=== PATIENT | female | born 1960 | race Caucasian/White ===

== ENCOUNTER 2021-11-10 19:31 | Emergency (ER) | payer MEDICARE, OTHER ==
[2021-11-10 19:43] VITALS: RESP 18; TEMP 97.8
--- NOTE | 2021-11-10 20:14 | XR ---
EXAMINATION TYPE: XR shoulder complete LT DATE OF EXAM: 11/10/2021 COMPARISON: NONE HISTORY: Fall. Pain TECHNIQUE: 3 views FINDINGS: There is no evidence of fracture nor dislocation. Glenohumeral joint is intact. There is sl ight narrowing of the shoulder joint space. IMPRESSION: Mild degenerative changes. No fracture.
--- NOTE | 2021-11-10 20:19 | XR ---
EXAMINATION TYPE: XR wrist complete LT DATE OF EXAM: 11/10/2021 COMPARISON: NONE HISTORY: Fall down the stairs. Pain TECHNIQUE: 3 views FINDINGS: There is impacted intra-articular fracture of the radial styloid process. There is only a f ew millimeters of impaction. There is nondisplaced fracture ulnar styloid process. There is no disloc ation. There is narrowing of the scaphoid trapezium joint space. There is spurring and narrowing at t he first carpometacarpal joint space. No dislocation. IMPRESSION: Acute fractures of the radial styloid process and the ultrasound process.
--- NOTE | 2021-11-10 20:21 | XR ---
EXAMINATION TYPE: XR forearm LT DATE OF EXAM: 11/10/2021 COMPARISON: NONE HISTORY: Fall. Pain TECHNIQUE: 2 views FINDINGS: There are fractures of the radial styloid process and ulnar styloid process described in th e wrist x-ray report. The proximal radius and ulna appear intact. There is transcondylar fracture of the distal humerus. IMPRESSION: Acute fractures of the distal humerus and the distal radius and ulna as above. No signifi cant displacement.
--- NOTE | 2021-11-10 20:22 | XR ---
EXAMINATION TYPE: XR elbow limited LT DATE OF EXAM: 11/10/2021 COMPARISON: NONE HISTORY: Pain TECHNIQUE: 2 views FINDINGS: There is nondisplaced transcondylar fracture of the distal humerus. There is no dislocation . Fracture involves mainly the medial humeral condyle. Radial head is intact. Proximal ulna is intact . IMPRESSION: Acute nondisplaced transcondylar fracture of the distal humerus involving mainly the medi al humeral condyle.
[2021-11-10] MEDS ORDERED: ONDANSETRON 4 MG/2 ML VIAL IVP STA (20:34)
[2021-11-10] MEDS ORDERED: MORPHINE SULFATE 4 MG/ML SYRINGE IV STA ×2 (20:34→21:47)
[2021-11-10] MEDS ORDERED: SODIUM CHLORIDE 0.9% 1,000 ML IV STA (20:34)
--- NOTE | 2021-11-10 20:43 | ED ---
Fall HPI - General Chief Complaint: Fall Stated Complaint: Fall-L arm injury Time Seen by Provider: 11/10/21 20:24 Source: patient Mode of arrival: wheelchair - History of Present Illness Initial Comments: This is a pleasant 61-year-old female with history of diabetes mellitus, DVT, PE, and heart disease. Patient presents to the emergency department today after tripping down stairs and reaching out with her left arm that Resolved. Patient complaining of pain to the area of the left humerus, left elbow, and left wrist. Patient states that the pain is severe, 10 out of 10 in intensity, sharp in nature, radiates through the entire left arm. Patient denying any other pain. Does not believe she struck her head but is unsure. Patient did not lose consciousness. She had no preceding symptomology. Nuys chest pain. Denies abdominal pain. Denies spinal pain. No leg pain. No headache, no fever or chills, no changes in vision or hearing, no sore throat or difficulty with speech, no neck pain, no chest pain or shortness of breath, no abdominal pain, no nausea or vomiting, no changes in urination or bowel movements, no numbness or tingling, , no skin rashes or lesions. Note that the patient had eye surgery yesterday. A vitrectomy. Patient states this went well. He denies any eye disturbance. patient is on eliquis for dvt pe. Complaint: fall Fall From: standing, down stairs (#) (7) When Fall Occurred: 1 hour [employer] Fall Witnessed: no Place Fall Occurred: home Loss of Consciousness: none Prolonged Down Time?: no Symptoms Prior to Fall: none Location - Extremities: Left: Arm, Elbow, Forearm Severity scale (1-10): 10 Quality: sharp Context: tripped/slipped Associated Symptoms: denies - Related Data Allergies Allergy/AdvReac Type Severity Reaction Status Date / Time butorphanol [From Stadol] Allergy Unknown Verified 11/10/21 19:43 codeine Allergy Rash/Hives Verified 11/10/21 19:44 meperidine [From Demerol] Allergy Anaphylaxis Verified 11/10/21 19:44 NSAIDS (Non-Steroidal Allergy Anaphylaxis Verified 11/10/21 19:44 Anti-Inflamma Review of Systems ROS Statement: Those systems with pertinent positive or pertinent negative responses have been documented in the HPI. ROS Other: All systems not noted in ROS Statement are negative. Past Medical History Past Medical History: Diabetes Mellitus, Deep Vein Thrombosis (DVT), Myocardial Infarction (NM), Pulmonary Embolus (PE) History of Any Multi-Drug Resistant Organisms: None Reported Past Surgical History: Heart Catheterization With Stent Additional Past Surgical History / Comment(s): Stent x10, fliter in leg. Past Psychological History: No Psychological Hx Reported Smoking Status: Never smoker Past Alcohol Use History: None Reported Past Drug Use History: None Reported General Exam - General Exam Comments Initial Comments: 61-year-old female in significant distress secondary to left arm pain/traumatic. Cranial nerves II through XII are intact. Head appears normocephalic/atraumatic. General appearance: alert, in distress Head exam: Present: atraumatic, normocephalic, normal inspection Eye exam: Present: normal appearance, PERRL, EOMI. Absent: scleral icterus, conjunctival injection, periorbital swelling ENT exam: Present: normal exam, normal oropharynx, mucous membranes moist, TM's normal bilaterally, normal external ear exam. Absent: mucous membranes dry Neck exam: Present: normal inspection, full ROM. Absent: tenderness, meningismus, lymphadenopathy Respiratory exam: Present: normal lung sounds bilaterally, chest wall tenderness. Absent: respiratory distress, wheezes, rales, rhonchi, stridor, accessory muscle use Cardiovascular Exam: Present: regular rate, normal rhythm, normal heart sounds. Absent: systolic murmur, diastolic murmur, rubs, gallop, clicks GI/Abdominal exam: Present: soft, normal bowel sounds. Absent: distended, tenderness, guarding, rebound, rigid Extremities exam: Present: tenderness, normal capillary refill. Absent: normal inspection, full ROM, pedal edema, calf tenderness Left Shoulder Exam: Present: normal inspection, full ROM. Absent: tenderness, swelling, abrasion Upper Arm exam: Present: tenderness, swelling, ecchymosis. Absent: abrasion, laceration, deformity, crepidus, dislocation, erythema Elbow exam: Present: normal inspection, tenderness. Absent: full ROM, swelling, abrasion, laceration, ecchymosis, deformity, crepitus, dislocation Forearm Wrist exam: Present: tenderness, swelling. Absent: normal inspection, full ROM, abrasion, laceration, ecchymosis, deformity, crepitus, dislocation, erythema, tenderness over anatomical snuff box, pain with axial thumb loading Hand Wrist exam: Present: tenderness, swelling. Absent: normal inspection, full ROM, abrasion, laceration, ecchymosis, deformity, crepitus, dislocation Neuro motor exam: Present: wrist extension intact, thumb opposition intact, thumb IP flexion intact, thumb adduction intact, fingers 2-5 abduction intact Neurosensory exam: Present: radial nerve intact, ulnar nerve intact, median nerve intact Vascular: Present: normal capillary refill. Absent: vascular compromise, Pallo, pulse deficit radial art, pulse deficit ulnar art Back exam: Present: normal inspection. Absent: tenderness, paraspinal tenderness, vertebral tenderness Neurological exam: Present: alert, oriented X3, CN II-XII intact, normal gait, other (Cerebellar testing is normal). Absent: altered, abnormal gait, motor sensory deficit Psychiatric exam: Present: normal affect, normal mood Skin exam: Present: warm, dry, intact, normal color. Absent: rash Course Vital Signs 11/10/21 11/10/21 11/10/21 19:38 21:00 22:00 Temperature 97.8 F Pulse Rate 95 Respiratory 18 Rate Blood Pressure 117/66 137/84 132/84 O2 Sat by Pulse 98 Oximetry - Reevaluation(s) Reevaluation #1: 11/10/21 22:12 Medical record is reviewed Symptoms minimally improved. Neurovascular status intact. - Consultations Consultation #1: I spoke to the transfer center at [facility] at 10 PM. They're unable to get a hold of the trauma surgeon. They are attempting to get home and then call me back. Currently 10:05 PM. Consultation #2: Case highly discussed with Dr. Cason at 11:05 PM. This did create a delay in transfer to [facility]. Apparently could not get a hold of Dr. Rushing. Procedures - Orthopedic Splinting/Casting Injury #1 Side: left Upper Extremity Injury Location: long arm Upper Extremity Immobilizer: ulnar gutter Lower Extremity Immobilizer: Hu wrap, fiberglass cast Additional Comments: Sling applied, neurovascular status intact both pre-and post-application Medical Decision Making - Medical Decision Making Patient apparently fell down about 7 steps. Unsure whether she struck her head. Patient believes not however is possible. Patient is on anticoagulation. I'm going to obtain a CT of the brain and cervical spine given the patient's me chanism of injury and severely distracting injury involving the left humerus area and left forearm area. Accepting physician Dr. Rushing. The case was discussed in detail with ED attending physician. Presentation, findings, treatment plan discussed in detail. Supervising physicians Dr. Gandhi - Lab Data Result diagrams: 11/10/21 21:10 11/10/21 21:10 Lab Results 11/10/21 11/10/21 11/10/21 Range/Units 21:05 21:10 21:10 WBC 9.7 (3.8-10.6) k/uL RBC 4.17 (3.80-5.40) m/uL Hgb 12.4 (11.4-16.0) gm/dL Hct 39.3 (34.0-46.0) % MCV 94.2 (80.0-100.0) fL MCH 29.8 (25.0-35.0) pg MCHC 31.6 (31.0-37.0) g/dL RDW 13.5 (11.5-15.5) % Plt Count 296 (150-450) k/uL MPV 6.8 Neutrophils % 59 % Lymphocytes % 31 % Monocytes % 6 % Eosinophils % 1 % Basophils % 1 % Neutrophils # 5.8 (1.3-7.7) k/uL Lymphocytes # 3.0 (1.0-4.8) k/uL Monocytes # 0.6 (0-1.0) k/uL Eosinophils # 0.1 (0-0.7) k/uL Basophils # 0.1 (0-0.2) k/uL PT 9.8 (9.0-12.0) sec INR 0.9 (<1.2) APTT 20.6 L (22.0-30.0) sec Sodium (137-145) mmol/L Potassium (3.5-5.1) mmol/L Chloride (98-107) mmol/L Carbon Dioxide (22-30) mmol/L Anion Gap mmol/L BUN (7-17) mg/dL Creatinine (0.52-1.04) mg/dL Est GFR (CKD-EPI)AfAm (>60 ml/min/1.73 sqM) Est GFR (CKD-EPI)NonAf (>60 ml/min/1.73 sqM) Glucose (74-99) mg/dL Calcium (8.4-10.2) mg/dL Blood Type Blood Type Confirm A Positive Blood Type Recheck Bld Type Recheck Status Antibody Screen Spec Expiration Date 11/10/21 11/10/21 Range/Units 21:10 21:10 WBC (3.8-10.6) k/uL RBC (3.80-5.40) m/uL Hgb (11.4-16.0) gm/dL Hct (34.0-46.0) % MCV (80.0-100.0) fL MCH (25.0-35.0) pg MCHC (31.0-37.0) g/dL RDW (11.5-15.5) % Plt Count (150-450) k/uL MPV Neutrophils % % Lymphocytes % % Monocytes % % Eosinophils % % Basophils % % Neutrophils # (1.3-7.7) k/uL Lymphocytes # (1.0-4.8) k/uL Monocytes # (0-1.0) k/uL Eosinophils # (0-0.7) k/uL Basophils # (0-0.2) k/uL PT (9.0-12.0) sec INR (<1.2) APTT (22.0-30.0) sec Sodium 137 (137-145) mmol/L Potassium 3.5 (3.5-5.1) mmol/L Chloride 101 (98-107) mmol/L Carbon Dioxide 21 L (22-30) mmol/L Anion Gap 15 mmol/L BUN 14 (7-17) mg/dL Creatinine 0.50 L (0.52-1.04) mg/dL Est GFR (CKD-EPI)AfAm >90 (>60 ml/min/1.73 sqM) Est GFR (CKD-EPI)NonAf >90 (>60 ml/min/1.73 sqM) Glucose 265 H (74-99) mg/dL Calcium 9.0 (8.4-10.2) mg/dL Blood Type A Positive Blood Type Confirm Blood Type Recheck No Previous Record Bld Type Recheck Status CABO Indicated Antibody Screen NEGATIVE Spec Expiration Date 11/13/2021 - 2309 Disposition Clinical Impression: Fall, Fracture of radius, distal, with ulna, left, closed, Fracture, supracondylar, humerus, left, closed Narrative: Intra-articular fracture of the left radius and supracondylar fracture of the left humerus displaced. Disposition: OTHER INSTITUTION NOT DEFINED Condition: Fair Referrals: Wayne Ramos MD [Primary Care Provider] - 1-2 days Time of Disposition: 22:10 - Out of Hospital Transfer - Req. Specs Out of Hospital Transfer - Requested Specifics: Other Emergency Center
[2021-11-10 21:20] LABS: Basophils # (A) 0.1 k/uL (0-0.2); Basophils % (A) 1 %; Eosinophils # (A) 0.1 k/uL (0-0.7); Eosinophils % (A) 1 %; HCT 39.3 % (34.0-46.0); HGB 12.4 gm/dL (11.4-16.0); Lymphocytes % (A) 31 %; MCH 29.8 pg (25.0-35.0); MCHC 31.6 g/dL (31.0-37.0); MCV 94.2 fL (80.0-100.0); Mean Platelet Volume 6.8; Monocytes # (A) 0.6 k/uL (0-1.0); Monocytes % (A) 6 %; Neutrophils # (A) 5.8 k/uL (1.3-7.7); Neutrophils % (A) 59 %; Platelet Count 296 k/uL (150-450); RBC 4.17 m/uL (3.80-5.40); RDW 13.5 % (11.5-15.5); WBC 9.7 k/uL (3.8-10.6)
[2021-11-10 21:31] LABS: African American GFR (CKD) >90 (>60 ml/min/1.73 sqM); Anion Gap 15 mmol/L; Blood Urea Nitrogen 14 mg/dL (7-17); Carbon Dioxide 21 mmol/L (22-30); Chloride 101 mmol/L (98-107); Glucose 265 mg/dL (74-99); Non-African American GFR(CKD) >90 (>60 ml/min/1.73 sqM); Potassium 3.5 mmol/L (3.5-5.1); Sodium 137 mmol/L (137-145)
--- NOTE | 2021-11-10 21:44 | CT ---
EXAMINATION TYPE: CT brain jonas brown DATE OF EXAM: 11/10/2021 COMPARISON: None HISTORY: Fall, head injury CT DLP: 1380 mGycm Automated exposure control for dose reduction was used. Images of the brain and cervical spine obtained without contrast. There is bilateral rounded hypodensities in the internal capsule consistent with multiple lacunar inf arcts. There is also involvement of the posterior right caudate nucleus. There is cerebral cortical a trophy. No midline shift. No sign of intracranial hemorrhage. Calvarium is intact. There is normal ae ration of the mastoid sinuses. There is air-fluid level in the right lobe. The cervical vertebra have normal alignment. Posterior elements are intact there is degenerative disc space narrowing from C3 to C7 with spurring of the endplates IMPRESSION: Multilevel cervical spondylotic changes. No fracture. Minimal bilateral lacunar infarcts. Cerebral atrophy. No acute intracranial abnormality. No hemorrhag e. Mild right-sided maxillary sinusitis noted.
[2021-11-10 21:54] LABS: INR 0.9 (<1.2); Prothrombin Time 9.8 sec (9.0-12.0)
[2021-11-10 21:58] LABS: Partial Thromboplastin Time 20.6 sec (22.0-30.0)
[2021-11-10] MEDS ORDERED: MORPHINE SULFATE 4 MG/ML SYRINGE IVP STA (22:44)
[2021-11-10] MEDS ORDERED: HYDROmorphone 1 MG/ML 1 ML SYRINGE IVP STA (23:15)
[2021-11-10 23:47] VITALS: BP 143/84; PULSE 87
== END 2021-11-10 23:47 | disposition other institution (70) ==
LOC: EC 19:31
DX: S42.412A Displaced simple supracondylar fracture without intercondylar fracture of left humerus, initial encounter for closed fracture (principal); S52.502A Unspecified fracture of the lower end of left radius, initial encounter for closed fracture; E11.9 Type 2 diabetes mellitus without complications; I25.2 Old myocardial infarction; Z88.5 Allergy status to narcotic agent; Z88.6 Allergy status to analgesic agent; W19.XXXA Unspecified fall, initial encounter
CPT/HCPCS: 36415; 86900; 86901; 80048; 85025; 85610; 85730; 86850; 87635; 73030; 73070; 73090; 73110; 72125; 70450; 29105; 99285; 96374; 96375; 96376; 96361; J2270; J1170

== ENCOUNTER 2021-12-07 17:34 | Observation (INO) | payer MEDICARE, OTHER ==
--- NOTE | 2021-12-07 18:36 | ED ---
General Adult HPI - General Chief complaint: Headache Stated complaint: Confusion Time Seen by Provider: 12/07/21 17:55 Source: patient, EMS, RN notes reviewed, old records reviewed Mode of arrival: EMS Limitations: no limitations - History of Present Illness Initial comments: 61-year-old female presenting for evaluation of headache and word finding dif ficulty. Her symptoms of word finding difficulty and speech abnormality began about 2 hours prior to arrival at approximately 2:30 PM. They were transient and have resolved prior to arrival. She also complains of a left-sided headache which is been intermittent over the past one month. This was severe at times described as a worst headache of her life. She is currently on Plavix and Eliquis. She denies any focal numbness or weakness. No facial droop noted. No fever. No vomiting. - Related Data Allergies Allergy/AdvReac Type Severity Reaction Status Date / Time butorphanol [From Stadol] Allergy Unknown Verified 11/10/21 19:43 codeine Allergy Rash/Hives Verified 11/10/21 19:44 meperidine [From Demerol] Allergy Anaphylaxis Verified 11/10/21 19:44 NSAIDS (Non-Steroidal Allergy Anaphylaxis Verified 11/10/21 19:44 Anti-Inflamma Review of Systems ROS Statement: Those systems with pertinent positive or pertinent negative responses have been documented in the HPI. ROS Other: All systems not noted in ROS Statement are negative. Past Medical History Past Medical History: Diabetes Mellitus, Deep Vein Thrombosis (DVT), Myocardial Infarction ([place]), Pulmonary Embolus (PE) History of Any Multi-Drug Resistant Organisms: None Reported Past Surgical History: Heart Catheterization With Stent, Orthopedic Surgery Additional Past Surgical History / Comment(s): Stent x10, fliter in leg. Past Psychological History: No Psychological Hx Reported Smoking Status: Never smoker Past Alcohol Use History: None Reported Past Drug Use History: None Reported General Exam Limitations: no limitations General appearance: alert, in no apparent distress Head exam: Present: atraumatic, normocephalic Eye exam: Present: normal appearance, PERRL ENT exam: Present: normal exam Neck exam: Present: normal inspection. Absent: tenderness, meningismus Respiratory exam: Present: normal lung sounds bilaterally. Absent: respiratory distress, wheezes Cardiovascular Exam: Present: regular rate, normal rhythm GI/Abdominal exam: Present: soft. Absent: distended, tenderness, guarding Extremities exam: Present: normal inspection, normal capillary refill. Absent: pedal edema Neurological exam: Present: alert, oriented X3, CN II-XII intact, other (NIH 0). Absent: motor sensory deficit Psychiatric exam: Present: normal affect, normal mood Skin exam: Present: warm, dry, intact. Absent: cyanosis, diaphoretic Course Vital Signs 12/07/21 12/07/21 17:35 19:40 Temperature 98.3 F Pulse Rate 78 79 Respiratory 18 18 Rate Blood Pressure 151/91 152/86 O2 Sat by Pulse 95 96 Oximetry EKG Findings - EKG Comments: EKG Findings:: EKG: Sinus rhythm rate of 80 CO interval 162, QRS duration 104, QTC 426, no ST segment elevation. Medical Decision Making - Medical Decision Making 61-year-old female presented for evaluation of her finding difficulty and expressive aphasia. Symptoms resolved prior to arrival. I did obtain history from the son who states that she was unable to speak. This was suggestive of TIA. Workup was initiated including CT and CT angiography. CT showing old lacunar infarcts with no acute findings. CT angiography was negative for anemia obstruction or stenosis. Laboratory testing was unremarkable. She remained NIH of 0 while in the emergency department. She will benefit from further stroke evaluation. She'll be admitted to Dr. Cunningham with neurology on consult. - Lab Data Result diagrams: 12/07/21 19:08 12/07/21 19:08 Lab Results 12/07/21 12/07/21 12/07/21 Range/Units 19:08 19:08 19:08 WBC 7.3 (3.8-10.6) k/uL RBC 4.38 (3.80-5.40) m/uL Hgb 12.7 (11.4-16.0) gm/dL Hct 40.2 (34.0-46.0) % MCV 91.9 (80.0-100.0) fL MCH 29.0 (25.0-35.0) pg MCHC 31.5 (31.0-37.0) g/dL RDW 13.4 (11.5-15.5) % Plt Count 246 (150-450) k/uL MPV 6.8 Neutrophils % 52 % Lymphocytes % 37 % Monocytes % 6 % Eosinophils % 1 % Basophils % 1 % Neutrophils # 3.8 (1.3-7.7) k/uL Lymphocytes # 2.7 (1.0-4.8) k/uL Monocytes # 0.5 (0-1.0) k/uL Eosinophils # 0.1 (0-0.7) k/uL Basophils # 0.1 (0-0.2) k/uL PT 10.2 (9.0-12.0) sec INR 0.9 (<1.2) APTT 23.3 (22.0-30.0) sec Sodium 138 (137-145) mmol/L Potassium 3.8 (3.5-5.1) mmol/L Chloride 103 (98-107) mmol/L Carbon Dioxide 26 (22-30) mmol/L Anion Gap 9 mmol/L BUN 28 H (7-17) mg/dL Creatinine 0.50 L (0.52-1.04) mg/dL Est GFR (CKD-EPI)AfAm >90 (>60 ml/min/1.73 sqM) Est GFR (CKD-EPI)NonAf >90 (>60 ml/min/1.73 sqM) Glucose 157 H (74-99) mg/dL Calcium 8.8 (8.4-10.2) mg/dL Total Bilirubin 0.5 (0.2-1.3) mg/dL AST 25 (14-36) U/L ALT 24 (4-34) U/L Alkaline Phosphatase 147 H (38-126) U/L Troponin I (0.000-0.034) ng/mL Total Protein 6.9 (6.3-8.2) g/dL Albumin 4.1 (3.5-5.0) g/dL 12/07/21 Range/Units 19:08 WBC (3.8-10.6) k/uL RBC (3.80-5.40) m/uL Hgb (11.4-16.0) gm/dL Hct (34.0-46.0) % MCV (80.0-100.0) fL MCH (25.0-35.0) pg MCHC (31.0-37.0) g/dL RDW (11.5-15.5) % Plt Count (150-450) k/uL MPV Neutrophils % % Lymphocytes % % Monocytes % % Eosinophils % % Basophils % % Neutrophils # (1.3-7.7) k/uL Lymphocytes # (1.0-4.8) k/uL Monocytes # (0-1.0) k/uL Eosinophils # (0-0.7) k/uL Basophils # (0-0.2) k/uL PT (9.0-12.0) sec INR (<1.2) APTT (22.0-30.0) sec Sodium (137-145) mmol/L Potassium (3.5-5.1) mmol/L Chloride (98-107) mmol/L Carbon Dioxide (22-30) mmol/L Anion Gap mmol/L BUN (7-17) mg/dL Creatinine (0.52-1.04) mg/dL Est GFR (CKD-EPI)AfAm (>60 ml/min/1.73 sqM) Est GFR (CKD-EPI)NonAf (>60 ml/min/1.73 sqM) Glucose (74-99) mg/dL Calcium (8.4-10.2) mg/dL Total Bilirubin (0.2-1.3) mg/dL AST (14-36) U/L ALT (4-34) U/L Alkaline Phosphatase (38-126) U/L Troponin I <0.012 (0.000-0.034) ng/mL Total Protein (6.3-8.2) g/dL Albumin (3.5-5.0) g/dL Disposition Clinical Impression: Headache, TIA (transient ischemic attack) Disposition: ADMITTED IP TO THIS [facility] Condition: Stable Is patient prescribed a controlled substance at d/c from ED?: No Referrals: Wayne Ramos MD [Primary Care Provider] - 1-2 days Time of Disposition: 20:57
[2021-12-07 19:13] LABS: Basophils # (A) 0.1 k/uL (0-0.2); Basophils % (A) 1 %; Eosinophils # (A) 0.1 k/uL (0-0.7); Eosinophils % (A) 1 %; HCT 40.2 % (34.0-46.0); HGB 12.7 gm/dL (11.4-16.0); Lymphocytes # (A) 2.7 k/uL (1.0-4.8); Lymphocytes % (A) 37 %; MCHC 31.5 g/dL (31.0-37.0); MCV 91.9 fL (80.0-100.0); Mean Platelet Volume 6.8; Monocytes # (A) 0.5 k/uL (0-1.0); Monocytes % (A) 6 %; Neutrophils # (A) 3.8 k/uL (1.3-7.7); Neutrophils % (A) 52 %; Platelet Count 246 k/uL (150-450); RBC 4.38 m/uL (3.80-5.40); RDW 13.4 % (11.5-15.5); WBC 7.3 k/uL (3.8-10.6)
[2021-12-07 19:21] LABS: INR 0.9 (<1.2); Partial Thromboplastin Time 23.3 sec (22.0-30.0); Prothrombin Time 10.2 sec (9.0-12.0)
[2021-12-07 19:29] LABS: ALT 24 U/L (4-34); AST 25 U/L (14-36); African American GFR (CKD) >90 (>60 ml/min/1.73 sqM); Albumin 4.1 g/dL (3.5-5.0); Alkaline Phosphatase 147 U/L (38-126); Anion Gap 9 mmol/L; Blood Urea Nitrogen 28 mg/dL (7-17); Calcium 8.8 mg/dL (8.4-10.2); Carbon Dioxide 26 mmol/L (22-30); Chloride 103 mmol/L (98-107); Glucose 157 mg/dL (74-99); Non-African American GFR(CKD) >90 (>60 ml/min/1.73 sqM); Potassium 3.8 mmol/L (3.5-5.1); Sodium 138 mmol/L (137-145); Total Bilirubin 0.5 mg/dL (0.2-1.3); Total Protein 6.9 g/dL (6.3-8.2)
--- NOTE | 2021-12-07 19:41 | XR ---
EXAMINATION TYPE: XR chest 2V DATE OF EXAM: 12/07/2021 COMPARISON: NONE HISTORY: Altered mental status TECHNIQUE: FINDINGS: There is no heart failure nor confluent pneumonic infiltrate. Costophrenic angles are clear . There are chest leads. Bony thorax is intact. IMPRESSION: No active cardiopulmonary disease. Normal heart.
--- NOTE | 2021-12-07 20:24 | CT ---
EXAMINATION TYPE: CT angio head neck DATE OF EXAM: 12/07/2021 COMPARISON: None HISTORY: Neuro deficit, acute, stroke suspected CT DLP: 631 mGycm Automated exposure control for dose reduction was used. CONTRAST: Performed with IV Contrast, patient injected with 65 mL of Isovue 370. Images obtained from the aortic arch to the vertex of the brain with IV contrast. There are Three-D p ostprocessed images. There is normal branching pattern of the great vessels on the aortic arch. There is arterial flow in both subclavian arteries. There is arterial flow in the common internal and external carotid arteries bilaterally. There is bilateral plaque formation at the carotid artery bifurcations. There is estima jelly 20% stenosis at the origin left internal carotid artery. There is estimated 25% stenosis origin o f the right internal carotid artery. No evidence of carotid or vertebral artery aneurysm or dissectio n. There is arterial flow in both vertebral arteries. There is arterial flow in the vertebrobasilar a rtery system. There is arterial flow in the anterior middle and posterior cerebral arteries. No evidence of intracr anial aneurysm or neovascularity. No mass effect. There is 1 cm hypodensity anterior left internal ca psule consistent with a old lacunar infarct. There is mild white matter hypodensity there is also bertram arent old lacunar infarct right anterior internal capsule. There is some hypodensity in the posterior right caudate nucleus consistent with old lacunar infarct. There is normal enhancement of the venous sinuses. No evidence of intracranial hemodynamic arterial s tenosis. IMPRESSION: No significant intracranial angiographic abnormality. Mild plaque at the carotid artery bifurcations with no evidence of hemodynamic stenosis.
--- NOTE | 2021-12-07 20:27 | CT ---
EXAMINATION TYPE: CT brain wo con DATE OF EXAM: 12/07/2021 COMPARISON: 11/10/2021 HISTORY: Neuro deficit, acute, stroke suspected CT DLP: 1139.6 mGycm Automated exposure control for dose reduction was used. Images of the brain obtained without contrast. There is some cerebral cortical atrophy. There is no mass effect or midline shift. No sign of intracr anial hemorrhage. There is 1 cm hypodensity anterior left internal capsule consistent with old lacuna r infarct. There is similar elongated 1 cm focus in the mid right internal capsule. There is 8 mm hyp odensity in the posterior right caudate nucleus. No evidence of cortical infarct. Calvarium is intact . There is some mucosal thickening right maxillary sinus. Skull base is intact. There is normal aerat ion of the mastoid sinuses. IMPRESSION: Old bilateral lacunar infarcts. Cerebral atrophy. No change compared to old exam. No acute intracrani al abnormality.
[2021-12-07] MEDS: SODIUM CHLORIDE 0.9% 1,000 ML IV SCH (21:54)
[2021-12-07] MEDS ORDERED: ACETAMINOPHEN TAB 500 MG TAB PO STA (22:04)
--- NOTE | 2021-12-08 01:33 | P.HPIM ---
History of Present Illness H&P Date: 12/07/21 Chief Complaint: Headache 61-year-old female with diabetes mellitus coronary artery disease status post 10 stents hypertension Patient coming in complaining of severe headache described it as severe 8 at 10 in severity feels it at the top of the headache goes to the left side not associated with any vision changes nausea vomiting or hearing changes not associated with any other focal neuro deficits however she reports that this headache has been going off and on for over 2 months now and today she started experiencing slurred speech and numbness over the right hand for which she decided to come in for evaluation Patient was seen 2 weeks ago at a different ER in the region she was only found to have high blood pressure Workup in the ED CAT scan of the head showed old lacunar infarct bilaterally CT angiogram of the head and neck showed no significant disease Blood work overall unremarkable chest x-rays negative Review of Systems Pertinent positives as noted in HPI. All other systems were reviewed and are negative Past Medical History Past Medical History: Diabetes Mellitus, Deep Vein Thrombosis (DVT), Myocardial Infarction (OR), Pulmonary Embolus (PE) History of Any Multi-Drug Resistant Organisms: None Reported Past Surgical History: Heart Catheterization With Stent, Orthopedic Surgery Additional Past Surgical History / Comment(s): Stent x10, fliter in leg. Past Psychological History: No Psychological Hx Reported Smoking Status: Never smoker Past Alcohol Use History: None Reported Past Drug Use History: None Reported - Past Family History Family Family Medical History: No Reported History Medications and Allergies Home Medications Medication Instructions Recorded Confirmed Type Apixaban [Eliquis] 5 mg PO BID 12/07/21 12/07/21 History Buprenorphine/Naloxone 8Mg/2Mg 0.5 - 1 film SL TID PRN 12/07/21 12/07/21 History [Suboxone 8-2Mg Film] Clopidogrel [Plavix] 75 mg PO DAILY 12/07/21 12/07/21 History DULoxetine HCL [Cymbalta] 60 mg PO BID 12/07/21 12/07/21 History Ezetimibe [Zetia] 10 mg PO HS 12/07/21 12/07/21 History Insulin Aspart [NovoLOG Flexpen] See Protocol SQ ACHS PRN 12/07/21 12/07/21 History Insulin Detemir [Levemir Flextouch 40 units SQ BID 12/07/21 12/07/21 History Pen] Levothyroxine Sodium [Synthroid] 112 mcg PO DAILY 12/07/21 12/07/21 History Linaclotide [Linzess] 290 mcg PO DAILY 12/07/21 12/07/21 History Lisinopril [Prinivil] 20 mg PO DAILY 12/07/21 12/07/21 History Potassium Chloride ER [K-Dur 20] 20 meq PO DAILY 12/07/21 12/07/21 History Rosuvastatin [Crestor] 20 mg PO HS 12/07/21 12/07/21 History Semaglutide [Ozempic] 1 mg SQ FR 12/07/21 12/07/21 History tiZANidine [Zanaflex] 4 mg PO Q8H PRN 12/07/21 12/07/21 History Allergies Allergy/AdvReac Type Severity Reaction Status Date / Time butorphanol [From Stadol] Allergy Unknown Verified 12/07/21 21:33 codeine Allergy Rash/Hives Verified 12/07/21 21:33 meperidine [From Demerol] Allergy Anaphylaxis Verified 12/07/21 21:33 NSAIDS (Non-Steroidal Allergy Anaphylaxis Verified 12/07/21 21:33 Anti-Inflamma carvedilol [From Coreg] AdvReac Migraines Verified 12/07/21 21:35 Physical Exam Vitals: Vital Signs Temp Pulse Resp BP Pulse Ox 12/07/21 21:57 81 15 110/68 96 12/07/21 19:40 79 18 152/86 96 12/07/21 17:35 98.3 F 78 18 151/91 95 Intake and Output 12/07/21 12/07/21 12/07/21 06:59 14:59 22:59 Other: Weight 84.232 kg Constitutional: No acute distress, conversant, pleasant Eyes: Anicteric sclerae, moist conjunctiva, Pupils equal round reactive to light ENMT: NC/AT Oropharynx clear, no erythema, or exudates Neck: Supple, FROM, no masses, or JVD No carotid bruits No thyromegaly Lungs: Clear to auscultation Clear to percussion Normal respiratory effort, no accessory muscle use Cardiovascular: Heart regular in rate and rhythm, No murmurs, gallops, or rubs No peripheral edema Abdominal: Soft Nontender, no guarding, rebound or rigidity Abdomen moving with respiration Normoactive bowel sounds No hepatomegaly, No splenomegaly No palpable mass No abdominal wall hernia noted Skin: Normal temperature, tone, texture, turgor No induration No subcutaneous nodules No rash, lesions No ulcers Extremities: No digital cyanosis No clubbing Pedal pulses intact and symmetrical Radial pulses intact and symmetrical No calf tenderness Psychiatric: Alert and oriented to person, place and time Appropriate affect fair judgement Neuro Muscles Strength 5/5 in all 4 extremities Sensation to light touch grossly present throughout Cranial nerves II-XII grossly intact No focal sensory deficits Lymphatics: no palpable cervical or supraclavicular , or inguinal lymph nodes Results CBC & Chem 7: 12/07/21 19:08 12/07/21 19:08 Labs: Abnormal Lab Results - Last 24 Hours (Table) 12/07/21 Range/Units 19:08 BUN 28 H (7-17) mg/dL Creatinine 0.50 L (0.52-1.04) mg/dL Glucose 157 H (74-99) mg/dL Alkaline Phosphatase 147 H (38-126) U/L Assessment and Plan Assessment: TIA Neurology consultation Neurochecks every 2 hours Fall precautions Check lipid profile, A1c Check echocardiogram CT angiogram the head and neck showed mild plaque disease in the carotids CT of the head and neck negative for acute pathology Resume Plavix and statin Hold a liquids History of A. fib on elliques Currently holding a liquids due to subacute TIA Diabetes mellitus switched to insulin sliding scale Hypertension Resume home medications Full code DVT prophylaxis on eliquis Anticipated length of stay less than 30 minutes
[2021-12-08 02:37] LABS: Glucose,Whole Blood 260 mg/dL (75-99)
[2021-12-08] MEDS: LEVOTHYROXINE 112 MCG TAB PO SCH (06:38)
[2021-12-08 07:46] LABS: Glucose,Whole Blood 158 mg/dL (75-99)
[2021-12-08] MEDS: INSULIN ASPART (NovoLOG) 100 UNIT/ML VIAL SQ SCH ×4 (08:01→21:18)
[2021-12-08] MEDS: SODIUM CHLORIDE 0.9% 1,000 ML IV SCH ×2 (08:09→17:56)
[2021-12-08] MEDS ORDERED: CLOPIDOGREL 75 MG TAB PO SCH (09:00)
[2021-12-08] MEDS: DULoxetine HCL 60 MG CAPSULE.DR PO SCH ×2 (09:22→21:17)
[2021-12-08] MEDS: CLOPIDOGREL 75 MG TAB PO SCH (09:22)
[2021-12-08] MEDS: lisinopriL 20 MG TAB PO SCH (09:23)
[2021-12-08] MEDS: NON FORMULARY DRUG (Linaclotide [Linzess] 290 MCG Capsule) PO SCH (10:24)
[2021-12-08] MEDS: APIXABAN 5 MG TAB PO SCH ×2 (10:30→21:16)
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
[2021-12-08 11:35] LABS: C Reactive Protein <0.5 mg/dL (<1.0)
--- NOTE | 2021-12-08 11:56 | CA ---
Transthoracic Echo Report Name: Bethany Linares Age: 61 Gender: F : 1960 Exam Date: 12/08/2021 07:35 Exam Location: [facility] Ht (in): 66 Wt (lb): 185 Ordering Physician: Chris Munson MD Attending/Referring Phys: [id number], [employer] Donya Pinzon RDCS Procedure CPT: Indications: Thrombus Cardiac Hx: Hx of 10 stents, chronic angina Technical Quality: Good Contrast 1: Total Dose (mL): Contrast 2: Total Dose (mL): MEASUREMENTS (Male / Female) Normal Values 2D ECHO LV Diastolic Diameter PLAX 4.0 cm 4.2 - 5.9 / 3.9 - 5.3 cm LV Systolic Diameter PLAX 2.2 cm IVS Diastolic Thickness 1.5 cm 0.6 - 1.0 / 0.6 - 0.9 cm LVPW Diastolic Thickness 1.4 cm 0.6 - 1.0 / 0.6 - 0.9 cm LV Relative Wall Thickness 0.7 LA Volume 20.2 cm??? 18 - 58 / 22 - 52 cm??? M-MODE MV E Point Septal Separation 1.5 cm DOPPLER AV Peak Velocity 152.5 cm/s AV Peak Gradient 9.3 mmHg AI Peak Velocity 165.0 cm/s AI Peak Gradient 10.9 mmHg AI Pressure Half Time 627.9 ms MV Area PHT 3.5 cm??? MR Peak Velocity 123.2 cm/s MR Peak Gradient 6.1 mmHg Mitral E Point Velocity 69.2 cm/s Mitral A Point Velocity 96.9 cm/s Mitral E to A Ratio 0.7 MV Deceleration Time 215.6 ms MV E' Velocity 4.7 cm/s Mitral E to MV E' Ratio 14.8 TR Peak Velocity 145.1 cm/s TR Peak Gradient 8.4 mmHg Right Ventricular Systolic Press 13.1 mmHg FINDINGS Left Ventricle Moderately increased septal wall thickness. Moderately increased posterior wall thickness. Left ventricular ejection fraction is estimated at 45-50 %. Basal inferolateral hypokinesis Right Ventricle The right ventricle is normal in size and function. Right Atrium The right atrium is normal in size. Left Atrium The left atrium is normal in size. Mitral Valve Structurally normal mitral valve without significant stenosis or prolapse. There is mild mitral regurgitation. Aortic Valve Structurally normal aortic valve without significant sclerosis or stenosis. There is a trace of aortic regurgitation. Tricuspid Valve Structurally normal tricuspid valve without significant stenosis. Pulmonary artery systolic pressure is normal. Mild tricuspid regurgitation. Pulmonic Valve Structurally normal pulmonic valve without significant stenosis. There is no pulmonic regurgitation. Pericardium Normal pericardium without effusion. Aorta Normal aortic root dimension. CONCLUSIONS Mild to moderate LV dysfunction with an ejection fraction of 45% with inferolateral hypokinesis. Mild tricuspid regurgitation. Mild mitral regurgitation. Consider DEL if clinically indicated Previewed by: Dr. Michael Colon MD (Electronically Signed) Final Date: 08 Dec 2021 11:55
[2021-12-08 12:00] LABS: Chol/HDL Ratio 2.78 Ratio; LDL Cholesterol,Calculated 70.1 mg/dL (0.0-131.0)
--- NOTE | 2021-12-08 17:03 | MR ---
EXAMINATION TYPE: MR brain wo con DATE OF EXAM: 12/08/2021 COMPARISON: None HISTORY: Neuro deficit, acute, stroke suspected. Multiplanar multi echo imaging of the brain without contrast. There is some cerebral cortical atrophy. There is mild enlargement of the ventricles. Diffusion image s show no evidence of an acute infarct. There is coalescent increased signal in the periventricular w tyree matter on the T2 and FLAIR images.. There is an 11 mm rounded fluid signal in the anterior left internal capsule consistent with old lacunar infarct. There is 8 mm mild increased signal on the T2 and FLAIR images within the central yazmin consistent wit h lacunar infarct No evidence of posterior fossa mass. Internal auditory canals appear normal. There is some thinning of the corpus callosum. IMPRESSION: Cerebral atrophy and mild hydrocephalus. Periventricular white matter coalescent signal changes likel y related to chronic small vessel ischemia or demyelinating disease. Lacunar infarct left internal ca psule. No cortical infarct.
[2021-12-08 17:42] LABS: Glucose,Whole Blood 238 mg/dL (75-99)
--- NOTE | 2021-12-08 18:43 | P.PN ---
Subjective Progress Note Date: 12/08/21 Hospital course: Patient is a very pleasant 61-year-old female with a past medical history of CAD status post 10 stents on Plavix, hypertension, hyperlipidemia, hypothyroidism history of DVT and PE on anticoagulation with Eliquis, and type II insulin- dependent diabetes mellitus. Patient presented to the emergency department with a chief complaint of severe headache accompanied by episode of slurred speech and right hand weakness and tingling. She underwent full evaluation in the emergency department. CBC, coags, and CMP were completed showing no significant abnormalities. EKG showing sinus rhythm at 80 bpm with no noted T wave or ST abnormality showing no signs of acute ischemia. CT revealing old lacunar infarcts bilaterally with cerebral atrophy. Patient was admitted under our services with consultation to neurology. Patient underwent CTA head and neck negative for acute process revealing mild plaque at the carotid artery bifurcations with no evidence of hemodynamic stenosis. Echocardiogram completed revealing mild to moderately impaired EF of 45% with inferolateral hypokinesis and mild tricuspid and mitral regurgitation. MRI revealing cerebral atrophy and mild hydrocephalus with periventricular white matter coalascent signal changes likely related to chronic small vessel ischemia or demyelinating disease, and lacunar infarct left internal capsule. Observation status changed to inpatient at this time. Physical exam: Patient seen and fully evaluated at bedside this morning. Patient reports that she continues to have a mild headache but improved and a tingling sensation to her right hand. Patient denies having any changes in her vision or hearing previously reported difficulties with speech/slurred speech has resolved. Patient denies having any dizziness, lightheadedness, chest pain, palpitations, shortness of breath or experiencing any numbness or focal weakness at this time. Vital signs reviewed and stable. General: Nontoxic, no distress and appears stated age. Derm: Skin warm and dry, normal coloration for ethnicity. Head: Atraumatic, normocephalic and symmetric. Eyes: EOMs intact, no lid lag, and anicteric sclera Mouth: no lip lesions, mucus membranes moist Cardiovascular: regular rate and rhythm with normal S1S2, no murmur, positive posterior tibial pulses bilaterally, and cap refill < 2 seconds. Lungs: Respirations even, regular, and unlabored on room air. Lungs CTA bilaterally, no rhonchi, no rales, no wheezing, and no accessory muscle usage. Abdominal: soft, nontender to palpation, no guarding, no appreciable organomegaly Ext: ROM intact. No gross muscle atrophy, no edema, no contractures Neuro: Speech clear, face symmetrical and CN II-XII grossly intact with no noted focal neuro deficits Psych: Alert and oriented to person, place, time, and situation. Appropriate and pleasant affect. Assessment and Plan of Care: TIA Mild hydrocephalus -CT revealing old lacunar infarcts bilaterally with cerebral atrophy. -MRI revealing cerebral atrophy and mild hydrocephalus with periventricular white matter coalascent signal changes likely related to chronic small vessel ischemia or demyelinating disease, and lacunar infarct left internal capsule. -Neurology consulted, appreciate further recommendations -Continue neuro checks -Lipid profile unremarkable -Hemoglobin A1c revealing poorly controlled diabetes mellitus with hemoglobin A1c of 8.2%. -Echocardiogram revealing mild to moderately impaired EF of 45% with inferolateral hypokinesis and mild tricuspid and mitral regurgitation. -Continue aspirin and Plavix and neurology started patient back on anticoagulation with Eliquis. Insulin-dependent diabetes mellitus, poorly controlled with hemoglobin A1c of 8.2% -Continue Levemir 40 units twice daily in place patient on glycemic protocol with NovoLog sliding scale. -Encourage her healthy and carb consistent diet. Hypertension -Monitor vital signs and continue daily medication regimen with lisinopril. Hyperlipidemia -Continue daily medication regimen with atorvastatin 40 mg nightly. Hypothyroidism -Continue daily medication regimen with levothyroxine. History of DVT and PE -Continue anticoagulation with Eliquis CODE STATUS: Full code DVT prophylaxis: Eliquis Discussed with: Patient and RN Anticipated discharge date: Clinical course to determine Anticipated discharge place: Home A total of 38 minutes was spent on the care of this complex patient more than 50% of the time was spent in counseling and care coordination. I reviewed the documentation as provided by the CORNELIUS above, who is the original author of this note. I agree with the documented assessment and plan, with the following changes: none Objective - Vital Signs Vital signs: Vital Signs Temp 98.3 F 12/07/21 17:35 Pulse 75 12/08/21 11:11 Resp 16 12/08/21 11:11 BP 159/84 12/08/21 11:11 Pulse Ox 96 12/08/21 11:11 FiO2 Intake & Output 12/07/21 12/08/21 12/08/21 18:59 06:59 18:59 Weight 84.232 kg - Labs CBC & Chem 7: 12/07/21 19:08 12/07/21 19:08 Labs: Abnormal Lab Results - Last 24 Hours (Table) 12/07/21 12/07/21 12/08/21 Range/Units 19:08 19:08 02:36 BUN 28 H (7-17) mg/dL Creatinine 0.50 L (0.52-1.04) mg/dL Glucose 157 H (74-99) mg/dL POC Glucose (mg/dL) 260 H (75-99) mg/dL Hemoglobin A1c 8.2 H (0.0-6.0) % Alkaline Phosphatase 147 H (38-126) U/L 12/08/21 Range/Units 07:45 BUN (7-17) mg/dL Creatinine (0.52-1.04) mg/dL Glucose (74-99) mg/dL POC Glucose (mg/dL) 158 H (75-99) mg/dL Hemoglobin A1c (0.0-6.0) % Alkaline Phosphatase (38-126) U/L
[2021-12-08 19:34] LABS: Glucose,Whole Blood 286 mg/dL (75-99)
[2021-12-08] MEDS ORDERED: ATORVASTATIN 40 MG TAB PO SCH (21:00)
[2021-12-08] MEDS ORDERED: EZETIMIBE 10 MG TAB PO SCH (21:00)
[2021-12-08] MEDS: INSULIN DETEMIR (LEVEMIR) 100 UNIT/ML SYR SQ SCH (21:18)
[2021-12-09] MEDS: SODIUM CHLORIDE 0.9% 1,000 ML IV SCH (04:06)
[2021-12-09] MEDS: LEVOTHYROXINE 112 MCG TAB PO SCH (06:00)
[2021-12-09 07:30] LABS: Glucose,Whole Blood 142 mg/dL (75-99)
[2021-12-09] MEDS: INSULIN DETEMIR (LEVEMIR) 100 UNIT/ML SYR SQ SCH (08:36)
[2021-12-09] MEDS: lisinopriL 20 MG TAB PO SCH (08:36)
[2021-12-09] MEDS: NON FORMULARY DRUG (Linaclotide [Linzess] 290 MCG Capsule) PO SCH (08:36)
[2021-12-09] MEDS: DULoxetine HCL 60 MG CAPSULE.DR PO SCH (08:36)
[2021-12-09] MEDS: APIXABAN 5 MG TAB PO SCH (08:36)
[2021-12-09] MEDS: CLOPIDOGREL 75 MG TAB PO SCH (08:36)
[2021-12-09] MEDS: INSULIN ASPART (NovoLOG) 100 UNIT/ML VIAL SQ SCH ×2 (08:37→12:05)
[2021-12-09 11:59] LABS: Glucose,Whole Blood 205 mg/dL (75-99)
[2021-12-09] MEDS ORDERED: CYANOCOBALAMIN 1,000 MCG/ML 1 ML VIAL IM ONE (14:24)
[2021-12-09] MEDS ORDERED: FOLIC ACID 1 MG TAB PO SCH (14:30)
[2021-12-09 14:31] VITALS: BP 145/84; PULSE 111; RESP 18; TEMP 98
--- NOTE | 2021-12-09 14:50 | P.DS ---
Providers Date of admission: 12/07/21 20:53 Expected date of discharge: 12/09/21 Attending physician: Kristine Cunningham MD Consults: 12/07/21 20:54 Consult Physician Routine Consulting Provider: Sven Mora Consult Reason/Comments: TIA Do you want consulting provider notified?: Yes Primary care physician: Richard Rivera [facility] Course: Discharge Diagnosis: TIA. Pt to continue Plavix and Eliquis along with starting daily folic acid and vitamin B12. Mild hydrocephalus Insulin-dependent diabetes mellitus, poorly controlled with hemoglobin A1c of 8.2%, hemoglobin A1c is significantly elevated. Patient educated on importance of maintaining a heart healthy and carb consistent diet and taking insulin as ordered. Hypertension. Monitor vital signs and continue daily medication regimen with lisinopril. Hyperlipidemia. Continue daily medication regimen with atorvastatin 40 mg nightly. Hypothyroidism. Continue daily medication regimen with levothyroxine. History of DVT and PE. Continue anticoagulation with Eliquis Hospital Course: Patient is a very pleasant 61-year-old female with a past medical history of CAD status post 10 stents on Plavix, hypertension, hyperlipidemia, hypothyroidism history of DVT and PE on anticoagulation with Eliquis, and type II insulin- dependent diabetes mellitus. Patient presented to the emergency department with a chief complaint of severe headache accompanied by episode of slurred speech and right hand weakness and tingling. She underwent full evaluation in the emergency department. CBC, coags, and CMP were completed showing no significant abnormalities. EKG showing sinus rhythm at 80 bpm with no noted T wave or ST abnormality showing no signs of acute ischemia. CT revealing old lacunar infarcts bilaterally with cerebral atrophy. Patient was admitted under our services with consultation to neurology. Patient underwent CTA head and neck negative for acute process revealing mild plaque at the carotid artery bifurcations with no evidence of hemodynamic stenosis. Echocardiogram completed revealing mild to moderately impaired EF of 45% with inferolateral hypokinesis and mild tricuspid and mitral regurgitation. MRI revealing cerebral atrophy and mild hydrocephalus with periventricular white matter coalascent signal changes likely related to chronic small vessel ischemia or demyelinating disease, and lacunar infarct left internal capsule. Observation status changed to inpatient at this time. Patient again monitored overnight. She had full resolution of previously reported headache and right hand tingling/weakness. Neurology reviewed MRI and recommending patient continue Plavix and Eliquis along with starting daily folic acid and vitamin B12.. Patient is medically stable for discharge at this time. Patient will need to follow up outpatient with PCP in 1-2 days and neurology in 1 week. Physical exam: Patient seen and fully evaluated at bedside this morning. Patient reports that she continues to have a mild headache but improved and a tingling sensation to her right hand. Patient denies having any changes in her vision or hearing previously reported difficulties with speech/slurred speech has resolved. Patient denies having any dizziness, lightheadedness, chest pain, palpitations, shortness of breath or experiencing any numbness or focal weakness at this time. Vital signs reviewed and stable. General: Nontoxic, no distress and appears stated age. Derm: Skin warm and dry, normal coloration for ethnicity. Head: Atraumatic, normocephalic and symmetric. Eyes: EOMs intact, no lid lag, and anicteric sclera Mouth: no lip lesions, mucus membranes moist Cardiovascular: regular rate and rhythm with normal S1S2, no murmur, positive posterior tibial pulses bilaterally, and cap refill < 2 seconds. Lungs: Respirations even, regular, and unlabored on room air. Lungs CTA bilaterally, no rhonchi, no rales, no wheezing, and no accessory muscle usage. Abdominal: soft, nontender to palpation, no guarding, no appreciable organomegaly Ext: ROM intact. No gross muscle atrophy, no edema, no contractures Neuro: Speech clear, face symmetrical and CN II-XII grossly intact with no noted focal neuro deficits Psych: Alert and oriented to person, place, time, and situation. Appropriate and pleasant affect. A total of 35 minutes of time were spent preparing this complex discharge summary. Pt was discharged on 12/09/21 at 2:47 PM. I reviewed the documentation as provided by the CORNELIUS above, who is the original author of this note. I agree with the documented assessment and plan, with the following changes: None Patient Condition at Discharge: Stable Plan - Discharge Summary Discharge Rx Participant: No New Discharge Prescriptions: New Folic Acid 1 mg PO DAILY 30 Days #30 tab Cyanocobalamin [Vitamin B-12] 1,000 mcg PO DAILY 30 Days #60 tab Continue tiZANidine [Zanaflex] 4 mg PO Q8H PRN PRN Reason: Muscle Pain Rosuvastatin [Crestor] 20 mg PO HS Lisinopril [Prinivil] 20 mg PO DAILY Linaclotide [Linzess] 290 mcg PO DAILY Levothyroxine Sodium [Synthroid] 112 mcg PO DAILY Insulin Detemir [Levemir Flextouch Pen] 40 units SQ BID Ezetimibe [Zetia] 10 mg PO HS Clopidogrel [Plavix] 75 mg PO DAILY Buprenorphine/Naloxone 8Mg/2Mg [Suboxone 8-2Mg Film] 0.5 - 1 film SL TID PRN PRN Reason: cravings Semaglutide [Ozempic] 1 mg SQ FR Potassium Chloride ER [K-Dur 20] 20 meq PO DAILY Insulin Aspart [NovoLOG Flexpen] See Protocol SQ ACHS PRN PRN Reason: with meals/snack DULoxetine HCL [Cymbalta] 60 mg PO BID Apixaban [Eliquis] 5 mg PO BID Discharge Medication List Apixaban [Eliquis] 5 mg PO BID 12/07/21 [History] Buprenorphine/Naloxone 8Mg/2Mg [Suboxone 8-2Mg Film] 0.5 - 1 film SL TID PRN 12/07/21 [History] Clopidogrel [Plavix] 75 mg PO DAILY 12/07/21 [History] DULoxetine HCL [Cymbalta] 60 mg PO BID 12/07/21 [History] Ezetimibe [Zetia] 10 mg PO HS 12/07/21 [History] Insulin Aspart [NovoLOG Flexpen] See Protocol SQ ACHS PRN 12/07/21 [History] Insulin Detemir [Levemir Flextouch Pen] 40 units SQ BID 12/07/21 [History] Levothyroxine Sodium [Synthroid] 112 mcg PO DAILY 12/07/21 [History] Linaclotide [Linzess] 290 mcg PO DAILY 12/07/21 [History] Lisinopril [Prinivil] 20 mg PO DAILY 12/07/21 [History] Potassium Chloride ER [K-Dur 20] 20 meq PO DAILY 12/07/21 [History] Rosuvastatin [Crestor] 20 mg PO HS 12/07/21 [History] Semaglutide [Ozempic] 1 mg SQ FR 12/07/21 [History] tiZANidine [Zanaflex] 4 mg PO Q8H PRN 12/07/21 [History] Cyanocobalamin [Vitamin B-12] 1,000 mcg PO DAILY 30 Days #60 tab 12/09/21 [Rx] Folic Acid 1 mg PO DAILY 30 Days #30 tab 12/09/21 [Rx] Follow up Appointment(s)/Referral(s): Wayne Ramos MD [Primary Care Provider] - 1-2 days Sandra Mccray MD [REFERRING] - 1 Week Patient Instructions/Handouts: Transient Ischemic Attack (DC) Activity/Diet/Wound Care/Special Instructions: Activity: As tolerated. Take breaks as needed. Diet: Heart healthy and carb consistent diet. Avoid salts, or foods with hidden salts such as canned or boxed foods and frozen dinners. Extra salt makes your heart work harder and traps the fluid in your body for longer. Special Instructions: Take all of your medications as directed and remember to keep all of your doctor's appointments and follow-up as needed. Hemoglobin A1c is significantly elevated at 8.2%. This too places you at higher risk for stroke and heart disease. It is very important to maintain a heart healthy and carb consistent diet and taking insulin as ordered. Will need to follow up outpatient with her PCP for continued close monitoring and repeat A1c levels to ensure improvement after diet and lifestyle modifications. Thank you for allowing us to participate in your care, it was truly a pleasure having you for our patient!!! Discharge Disposition: HOME SELF-CARE
[2021-12-10] MEDS ORDERED: CYANOCOBALAMIN 500 MCG TAB PO SCH (09:00)
--- NOTE | 2021-12-10 09:26 | P.PN ---
Subjective Progress Note Date: 12/09/21 Patient states that headache has resolved. Patient desperate to go home. Patient states that if any delays, she will sign out AMA. No focal symptoms. She feels fine. Objective - Vital Signs Vital signs: Vital Signs Temp 98 F 12/09/21 14:30 Pulse 111 H 12/09/21 14:30 Resp 18 12/09/21 14:30 BP 145/84 12/09/21 14:30 Pulse Ox 95 12/09/21 14:30 FiO2 Intake & Output 12/08/21 12/09/21 12/09/21 18:59 06:59 18:59 Intake Total 118 Balance 118 Weight 84.232 kg Intake: Oral 118 Other: Voiding Method Toilet # Voids 2 1 - Exam No change as compared to yesterday. - Labs CBC & Chem 7: 12/07/21 19:08 12/07/21 19:08 Labs: Abnormal Lab Results - Last 24 Hours (Table) 12/08/21 12/08/21 12/09/21 Range/Units 17:40 19:30 07:28 POC Glucose (mg/dL) 238 H 286 H 142 H (75-99) mg/dL 12/09/21 Range/Units 11:57 POC Glucose (mg/dL) 205 H (75-99) mg/dL Assessment and Plan Assessment: * Probable TIA manifesting with speech difficulty, word finding problem, lasted for one hour. Symptoms now resolved. Her NIH stroke scale is 0. * New onset headache (involving top of the head and left side), of 6 weeks duration, worse in the last 2 weeks. Exact cause is uncertain. No evidence of paranasal sinus disease. Rule out temporal arteritis. Patient has seen automation technologist, and no obvious ophthalmologic cause identified. Uncertain if related to uncontrolled blood pressure. Headache now completely resolved. * Diabetes, not well controlled * History of DVT and PE, on Eliquis * Hypertension * Hypothyroidism * Hyperlipidemia * History of fall, with left elbow and wrist fracture 11/10/2021, status post surgery on 11/13/2021. * Chronic back pain since cardiac stent long time ago. * Recurrent falls, unclear cause. * Osteoporosis Plan: * CTA of head and neck reported mild plaque at the carotid artery bifurcations with no evidence of hemodynamic stenosis. No report of any aneurysm. * MRI of the brain without contrast reported cerebral atrophy and mild hydrocephalus. Periventricular white matter coalescent signal changes likely related to chronic small vessel ischemia or demyelinating disease. Lacunar infarct left internal capsule. No cortical infarct. I personally reviewed MRI of the brain. There is no evidence of hydrocephalus. Lacunar infarct left internal capsule is chronic. No acute ischemia. * 2-D echo revealed mild to moderate left-ventricular dysfunction with EF of 45% with inferior lateral hypokinesis. Mild MR. Consider DEL if clinically indicated. (Patient already on anticoagulation with Eliquis). * Hemoglobin A1c 8.2. Recommend optimize control of diabetes to target A1c <7.0 * Lipid panel with cholesterol 147, LDL 70, HDL 52 and triglycerides 120. Continue Crestor 20 mg daily. * Resume Eliquis 5 mg twice a day and Plavix 75 mg daily. * ESR 37 which is borderline, CRP < 0.5. No evidence of temporal arteritis, as the headache has completely resolved. MICHELLE positive, borderline 1:80, with no pattern identified. Likely nonspecific. * Patient has history of frequent falls. B12 298. Patient was given vitamin B12 injection 1000 g IM stat. She will continue vitamin B12 1000 g orally daily. Folic acid borderline 8.70. Patient will be started on folic acid 1 mg daily. * Recommend continue Plavix and Eliquis for stroke prevention. * EEG as an outpatient rule out any seizure activity. * Neurologically clear for discharge.
== END 2021-12-09 15:04 | disposition home or self-care (01) ==
LOC: EC 17:34 → 6NMEDSUR 20:53 → INTOOBSV 12-08 18:17 → OBSVTOIN 12-08 18:17 → UNDODISOB 12-09 15:04
PROVIDERS: ADMIT Internal Medicine; ATTEND Internal Medicine
DX: G45.9 Transient cerebral ischemic attack, unspecified (principal); G91.9 Hydrocephalus, unspecified; E11.65 Type 2 diabetes mellitus with hyperglycemia; I10 Essential (primary) hypertension; E78.5 Hyperlipidemia, unspecified; E03.9 Hypothyroidism, unspecified; I25.10 Atherosclerotic heart disease of native coronary artery without angina pectoris; I08.1 Rheumatic disorders of both mitral and tricuspid valves; G89.29 Other chronic pain; M54.50 Low back pain, unspecified; M81.0 Age-related osteoporosis without current pathological fracture; I25.2 Old myocardial infarction; I48.91 Unspecified atrial fibrillation; Z71.3 Dietary counseling and surveillance; Z71.89 Other specified counseling; Z86.711 Personal history of pulmonary embolism; Z86.718 Personal history of other venous thrombosis and embolism; Z86.73 Personal history of transient ischemic attack (TIA), and cerebral infarction without residual deficits; Z87.81 Personal history of (healed) traumatic fracture; Z95.828 Presence of other vascular implants and grafts; Z95.5 Presence of coronary angioplasty implant and graft; Z79.01 Long term (current) use of anticoagulants; Z79.02 Long term (current) use of antithrombotics/antiplatelets; Z79.4 Long term (current) use of insulin; Z79.899 Other long term (current) drug therapy; Z79.890 Hormone replacement therapy; R29.6 Repeated falls; Z91.81 History of falling; Z88.5 Allergy status to narcotic agent; Z88.8 Allergy status to other drugs, medicaments and biological substances
CPT/HCPCS: 96360; 96361 ×2; 99285; 36415; 93005; 93306; 80061; 80053; 85652; 82607; 82746; 84484; 85025; 85610; 85730; 86140; 86038; 86039; 83036; 71046; 70496; 70450; 70498; 70551; G0378 ×3; Q9967

== ENCOUNTER → 2021-12-31 | Outpatient (CLI) | payer MEDICARE ==
--- NOTE | 2021-12-31 15:16 | EEG ---
ELECTROENCEPHALOGRAM REPORT DATE OF SERVICE: 12/31/2021 CLINICAL HISTORY: This is a 61-year-old woman with recent TIA and was recommended by her inpatient neurologist to rule out focal seizure. The video EEG is obtained to evaluate for seizure epileptiform activity. RELEVANT MEDICATION: No medication list is recorded on her chart. EEG TYPE: A routine 21 channel EEG is performed with video using the 10/20 electrode placement system. DESCRIPTION: Wakefulness is only obtained. During awake state the posterior-dominant rhythm consists of low to moderate voltage of 8.5 to 9.5 hertz activity that is well modulated and well sustained. There is no physiological sleep architecture. There is no focal slowing. Interictal and ictal is none. ACTIVATION PROCEDURE: Photic stimulation did not evoke a posterior driving response. There is no abnormality during the photic stimulation. Hyperventilation is not performed. CLINICAL INTERPRETATION: This is a normal routine EEG. There is no focal slowing, epileptiform discharge or seizure on the EEG. Clinical correlation is recommended. GEM / VICTORINAN: [id number] / BASIL
== END ==
LOC: NEUROMAIN 08:57
PROVIDERS: ATTEND Psychiatry & Neurology Neurology
DX: G45.9 Transient cerebral ischemic attack, unspecified (principal); Z88.5 Allergy status to narcotic agent; Z88.6 Allergy status to analgesic agent; Z88.8 Allergy status to other drugs, medicaments and biological substances
CPT/HCPCS: 95816

== ENCOUNTER → 2024-04-06 | Outpatient (CLI) | payer MEDICARE ==
[2024-04-06 16:27] LABS: HCT 43.3 % (37.2-46.3); HGB 14.1 g/dL (12.0-15.0); MCH 29.7 pg (27.0-32.0); MCHC 32.6 g/dL (32.0-37.0); MCV 91.4 FL (80.0-97.0); Mean Platelet Volume 9.9 FL (9.5-12.2); NRBC Per 100 WBC 0 X 10*3/uL (0.00-0.01); Platelet Count 240 X 10*3/uL (140-440); RBC 4.74 X 10*6/uL (4.10-5.20); WBC 5.32 X 10*3/uL (4.50-10.00)
[2024-04-06 16:49] LABS: ALT 30 U/L (8-44); AST 24 U/L (13-35); Albumin 4.3 g/dL (3.8-4.9); Albumin/Globulin Ratio 1.87 Ratio (1.60-3.17); Alkaline Phosphatase 123 U/L (41-126); BUN/Creat Ratio 21.67 Ratio (12.00-20.00); Calcium 9.2 mg/dL (8.7-10.3); Carbon Dioxide 27.6 mmol/L (21.6-31.8); Chloride 101 mmol/L (96-109); Globulin 2.3 g/dL (1.6-3.3); Glucose 300 mg/dL (70-110); Sodium 140 mmol/L (135-145); Total Bilirubin 0.6 mg/dL (0.3-1.2); Total Protein 6.6 g/dL (6.2-8.2)
== END | disposition home or self-care (01) ==
LOC: LABWHC1 08:36
DX: I25.10 Atherosclerotic heart disease of native coronary artery without angina pectoris (principal)
CPT/HCPCS: 36415; 80053; 85027

== ENCOUNTER 2024-04-29 11:07 | Inpatient (IN) | payer MEDICARE ==
[2024-04-29 11:24] LABS: Glucose,Whole Blood 368 mg/dL (70-110)
--- NOTE | 2024-04-29 11:38 | ED ---
Nausea/Vomiting/Diarrhea HPI - General Chief complaint: Nausea/Vomiting/Diarrhea Stated complaint: Weakness Time Seen by Provider: 04/29/24 11:15 Source: patient, family, RN notes reviewed Mode of arrival: wheelchair Limitations: no limitations - History of Present Illness Initial comments: This is a 63-year-old female who presents to the emergency department for nausea and vomiting. Patient states that this started about 5 days ago. She typically has a couple of episodes each year where she requires hospitalization for IV fluids and antiemetics. She is an insulin-dependent type 2 diabetic. She is on Reglan daily due to possible gastroparesis. Over the last 5 days this has not been effective. Reports feeling increasingly weak as well with her blood sugars in the 400s. She saw her primary care provider, and was advised to come to the emergency department. Denies any chest pain or shortness of breath. She has not had any fevers/chills or sick contacts. MD complaint: nausea, vomiting - Related Data Home Medications Medication Instructions Recorded Confirmed Apixaban [Eliquis] 5 mg PO BID 12/07/21 04/29/24 DULoxetine HCL [Cymbalta] 60 mg PO BID 12/07/21 04/29/24 Ezetimibe [Zetia] 10 mg PO HS 12/07/21 04/29/24 Insulin Aspart [NovoLOG Flexpen] 30 - 50 units SQ TID-W/MEALS 12/07/21 04/29/24 Insulin Detemir [Levemir Flextouch 40 units SQ BID 12/07/21 04/29/24 Pen] Linaclotide [Linzess] 290 mcg PO DAILY 12/07/21 04/29/24 Potassium Chloride ER [K-Dur 20] 20 meq PO DAILY 12/07/21 04/29/24 Rosuvastatin [Crestor] 20 mg PO HS 12/07/21 04/29/24 Buprenorphine-Nalox 8-2 mg Tab 1 tab SUBLINGUAL BID 04/29/24 04/29/24 [Suboxone 8-2 mg Tab] Levothyroxine Sodium [Synthroid] 100 mcg PO DAILY 04/29/24 04/29/24 Metoclopramide [Reglan] 10 mg PO DAILY 04/29/24 04/29/24 Pantoprazole Sodium [Protonix] 20 mg PO DAILY 04/29/24 04/29/24 Ticagrelor [Brilinta] 90 mg PO DAILY 04/29/24 04/29/24 amLODIPine [Norvasc] 5 mg PO DAILY 04/29/24 04/29/24 lisinopriL 40 mg PO DAILY 04/29/24 04/29/24 Allergies Allergy/AdvReac Type Severity Reaction Status Date / Time butorphanol [From Stadol] Allergy Unknown Verified 04/29/24 12:01 codeine Allergy Rash/Hives Verified 04/29/24 12:01 meperidine [From Demerol] Allergy Anaphylaxis Verified 04/29/24 12:01 NSAIDS (Non-Steroidal Allergy Anaphylaxis Verified 04/29/24 12:01 Anti-Inflamma carvedilol [From Coreg] AdvReac Migraines Verified 04/29/24 12:01 dapagliflozin [From Farxiga] AdvReac DKA Verified 04/29/24 12:01 Review of Systems ROS Statement: Those systems with pertinent positive or pertinent negative responses have been documented in the HPI. ROS Other: All systems not noted in ROS Statement are negative. Past Medical History Past Medical History: Diabetes Mellitus, Deep Vein Thrombosis (DVT), Hypertension, Myocardial Infarction (MO), Pulmonary Embolus (PE) Additional Past Medical History / Comment(s): bilateral ankle fracture, right upper arm fracture History of Any Multi-Drug Resistant Organisms: None Reported Past Surgical History: Heart Catheterization With Stent, Orthopedic Surgery Additional Past Surgical History / Comment(s): Stent x10, fliter in leg, detached retina, left arm fracture Date of Last Stent Placement:: december 2017 Past Psychological History: No Psychological Hx Reported Smoking Status: Never smoker Past Alcohol Use History: None Reported Past Drug Use History: None Reported - Past Family History Family Family Medical History: No Reported History General Exam Limitations: no limitations General appearance: alert, in no apparent distress Head exam: Present: atraumatic, normocephalic, normal inspection Respiratory exam: Present: normal lung sounds bilaterally. Absent: respiratory distress, wheezes, rales, rhonchi, stridor Cardiovascular Exam: Present: regular rate, normal rhythm, normal heart sounds. Absent: systolic murmur, diastolic murmur, rubs, gallop, clicks GI/Abdominal exam: Present: soft, normal bowel sounds. Absent: distended, tenderness, guarding, rebound, rigid Neurological exam: Present: alert, oriented X3, CN II-XII intact Psychiatric exam: Present: normal affect, normal mood Skin exam: Present: warm, dry, intact, normal color. Absent: rash Course Vital Signs 04/29/24 04/29/24 04/29/24 11:10 12:48 15:49 Temperature 98.7 F 98.5 F Pulse Rate 111 H 86 98 Respiratory 18 18 18 Rate Blood Pressure 183/83 156/98 104/80 O2 Sat by Pulse 96 98 97 Oximetry Medical Decision Making - Medical Decision Making This is a 63 year old female who presents to the emergency department for nausea, vomiting, and weakness. Was pt. sent in by a medical professional or institution? @ -No Did you speak to anyone other than the patient for history? @ -Her son provided the majority of the history. Did you review nursing and triage notes? @ -Yes, and I agree, it is accurate with regards to the patient's symptoms. Were old charts reviewed? @ -No Differential Diagnosis? @ -Differential Nausea and Vomiting: Gastroenteritis, cholecystitis, appendicitis, pancreatitis, migraine, benign positional vertigo, food borne illness, pyelonephritis, irritable bowel syndrome, influenza, Covid, GERD, incarcerated hernia, intestinal obstruction, this is not meant to be an all-inclusive list. EKG interpreted by me (3pts min.)? @ -EKG interpreted by me demonstrating the following: Sinus rhythm. Ventricular rate 98 bpm, MN interval 132 ms, QRS duration 110 ms, QTc 449 ms. X-rays interpreted by me (1pt min.)? @ -Chest x-ray obtained, my interpretation identifies no localized consolidations or infiltrates. CT interpreted by me (1pt min.)? @ -Not obtained U/S interpreted by me (1pt. min.)? @ -Not obtained What testing was considered but not performed? (CT, X-rays, U/S, labs)? Why? @ -None What meds were considered but not given? Why? @ -None Did you discuss the management of the patient with other professionals? @ -Yes, Dr. Saldaña, who accepts the patient for admission Did you reconcile home meds? @ -Yes Was smoking cessation discussed for >3mins.? @ -No Was critical care preformed (if so, how long)? @ -Yes, >35 minutes Were there social determinants of health that impacted care today? How? (Homelessness, low income, unemployed, alcoholism, drug addiction, transportation, low edu. Level, literacy, decrease access to med. care, shelter, rehab)? @ -No Was there de-escalation of care discussed even if they declined? (Discuss DNR or withdrawal of care, Hospice)? @ -No What co-morbidities impacted this encounter? (DM, HTN, Smoking, COPD, CAD, Cancer, CVA, Hep., AIDS, mental health diagnosis, sleep apnea, morbid obesity)? @ -DM, CAD Was patient admitted / discharged? @ -Admitted. Lab work demonstrates mild leukocytosis. She has mild h ypokalemia with a potassium of 3.2. Blood sugar 363. Acetone negative, patient not in DKA. Lactic acid mildly elevated at 2.2. COVID, influenza, RSV testing negative. Urinalysis demonstrates some elevation in white blood cells and leukocyte estrace. Urine sent for culture. Troponin returned elevated at 3.76. Patient has a substantial cardiac history including approximately 12 stents. ED attending, Dr. Banuelos, spoke with on-call cardiology, Dr. Colon, who advised starting the patient on heparin. She had been given a liter bolus of IV fluids for the nausea and vomiting and started on maintenance IV fluids as well. Symptoms controlled with antiemetics. She finds Reglan and Compazine to be most effective. Chest x-ray demonstrates a nodular density in the right upper lung field. Follow-up will be deferred to admitting team. Patient admitted to medicine for nausea and vomiting and NSTEMI. Case discussed with ED attending Dr. Banuelos. Undiagnosed new problem with uncertain prognosis? @ -None Drug Therapy requiring intensive monitoring for toxicity (Heparin, Nitro, Insulin, Cardizem)? @ -Heparin Were any procedures done? @ -None Diagnosis/symptom? @ -Nausea and vomiting, NSTEMI Acute, or Chronic, or Acute on Chronic? @ -Acute Uncomplicated (without systemic symptoms) or Complicated (systemic symptoms)? @ -Complicated Side effects of treatment? @ -None Exacerbation, Progression, or Severe Exacerbation] @ -Not applicable Poses a threat to life or bodily function? @ -Yes, if due to ACS it can be life threatening. - Lab Data Result diagrams: 05/01/24 06:35 05/02/24 07:08 Lab Results 04/29/24 04/29/24 04/29/24 Range/Units 11:22 11:37 11:37 WBC 11.6 H (3.8-10.6) k/uL RBC 5.48 H (3.80-5.40) m/uL Hgb 16.1 H (11.4-16.0) gm/dL Hct 49.8 H (34.0-46.0) % MCV 90.9 (80.0-100.0) fL MCH 29.3 (25.0-35.0) pg MCHC 32.3 (31.0-37.0) g/dL RDW 13.0 (11.5-15.5) % Plt Count 365 (150-450) k/uL MPV 6.4 Neutrophils % 78 % Lymphocytes % 13 % Monocytes % 7 % Eosinophils % 0 % Basophils % 0 % Neutrophils # 9.0 H (1.3-7.7) k/uL Lymphocytes # 1.5 (1.0-4.8) k/uL Monocytes # 0.8 (0-1.0) k/uL Eosinophils # 0.0 (0-0.7) k/uL Basophils # 0.0 (0-0.2) k/uL Sodium (137-145) mmol/L Potassium (3.5-5.1) mmol/L Chloride (98-107) mmol/L Carbon Dioxide (22-30) mmol/L Anion Gap mmol/L BUN (7-17) mg/dL Creatinine (0.52-1.04) mg/dL Est GFR (CKD-EPI)AfAm (>60 ml/min/1.73 sqM) Est GFR (CKD-EPI)NonAf (>60 ml/min/1.73 sqM) Glucose (74-99) mg/dL POC Glucose (mg/dL) 368 H (70-110) mg/dL POC Glu Hide Trimmer ID Nikolai Alba Lactic Ac Sepsis Rflx Plasma Lactic Acid Dom (0.7-2.0) mmol/L Calcium (8.4-10.2) mg/dL Phosphorus (2.5-4.5) mg/dL Magnesium (1.6-2.3) mg/dL Total Bilirubin (0.2-1.3) mg/dL AST (14-36) U/L ALT (4-34) U/L Alkaline Phosphatase (38-126) U/L Troponin I (0.000-0.034) ng/mL Total Protein (6.3-8.2) g/dL Albumin (3.5-5.0) g/dL Amylase (30-110) U/L Lipase (23-300) U/L Urine Color Colorless Urine Appearance Clear (Clear) Urine pH 6.0 (5.0-8.0) Ur Specific Whately 1.017 (1.001-1.035) Urine Protein Trace H (Negative) Urine Glucose (UA) 4+ H (Negative) Urine Ketones 3+ H (Negative) Urine Blood Negative (Negative) Urine Nitrite Negative (Negative) Urine Bilirubin Negative (Negative) Urine Urobilinogen <2.0 (<2.0) mg/dL Ur Leukocyte Esterase Large H (Negative) Urine RBC 1 (0-5) /hpf Urine WBC 50 H (0-5) /hpf Ur Squamous Epith Cells 1 (0-4) /hpf Acetone, Qual (Negative) Influenza Type A (PCR) (Not Detectd) Influenza Type B (PCR) (Not Detectd) RSV (PCR) (Not Detectd) SARS-CoV-2 (PCR) (Not Detectd) 04/29/24 04/29/24 04/29/24 Range/Units 11:37 11:37 11:48 WBC (3.8-10.6) k/uL RBC (3.80-5.40) m/uL Hgb (11.4-16.0) gm/dL Hct (34.0-46.0) % MCV (80.0-100.0) fL MCH (25.0-35.0) pg MCHC (31.0-37.0) g/dL RDW (11.5-15.5) % Plt Count (150-450) k/uL MPV Neutrophils % % Lymphocytes % % Monocytes % % Eosinophils % % Basophils % % Neutrophils # (1.3-7.7) k/uL Lymphocytes # (1.0-4.8) k/uL Monocytes # (0-1.0) k/uL Eosinophils # (0-0.7) k/uL Basophils # (0-0.2) k/uL Sodium 131 L (137-145) mmol/L Potassium 3.2 L (3.5-5.1) mmol/L Chloride 89 L (98-107) mmol/L Carbon Dioxide 28 (22-30) mmol/L Anion Gap 14 mmol/L BUN 23 H (7-17) mg/dL Creatinine 0.56 (0.52-1.04) mg/dL Est GFR (CKD-EPI)AfAm >90 (>60 ml/min/1.73 sqM) Est GFR (CKD-EPI)NonAf >90 (>60 ml/min/1.73 sqM) Glucose 363 H (74-99) mg/dL POC Glucose (mg/dL) (70-110) mg/dL POC Glu Hide Trimmer ID Lactic Ac Sepsis Rflx Plasma Lactic Acid Dom 2.2 H* (0.7-2.0) mmol/L Calcium 9.6 (8.4-10.2) mg/dL Phosphorus 2.2 L (2.5-4.5) mg/dL Magnesium 2.0 (1.6-2.3) mg/dL Total Bilirubin 1.7 H (0.2-1.3) mg/dL AST 50 H (14-36) U/L ALT 36 H (4-34) U/L Alkaline Phosphatase 130 H (38-126) U/L Troponin I 3.760 H* (0.000-0.034) ng/mL Total Protein 7.1 (6.3-8.2) g/dL Albumin 4.6 (3.5-5.0) g/dL Amylase 48 (30-110) U/L Lipase 30 (23-300) U/L Urine Color Urine Appearance (Clear) Urine pH (5.0-8.0) Ur Specific Whately (1.001-1.035) Urine Protein (Negative) Urine Glucose (UA) (Negative) Urine Ketones (Negative) Urine Blood (Negative) Urine Nitrite (Negative) Urine Bilirubin (Negative) Urine Urobilinogen (<2.0) mg/dL Ur Leukocyte Esterase (Negative) Urine RBC (0-5) /hpf Urine WBC (0-5) /hpf Ur Squamous Epith Cells (0-4) /hpf Acetone, Qual Negative (Negative) Influenza Type A (PCR) (Not Detectd) Influenza Type B (PCR) (Not Detectd) RSV (PCR) (Not Detectd) SARS-CoV-2 (PCR) (Not Detectd) 04/29/24 04/29/24 04/29/24 Range/Units 12:18 13:05 14:32 WBC (3.8-10.6) k/uL RBC (3.80-5.40) m/uL Hgb (11.4-16.0) gm/dL Hct (34.0-46.0) % MCV (80.0-100.0) fL MCH (25.0-35.0) pg MCHC (31.0-37.0) g/dL RDW (11.5-15.5) % Plt Count (150-450) k/uL MPV Neutrophils % % Lymphocytes % % Monocytes % % Eosinophils % % Basophils % % Neutrophils # (1.3-7.7) k/uL Lymphocytes # (1.0-4.8) k/uL Monocytes # (0-1.0) k/uL Eosinophils # (0-0.7) k/uL Basophils # (0-0.2) k/uL Sodium (137-145) mmol/L Potassium (3.5-5.1) mmol/L Chloride (98-107) mmol/L Carbon Dioxide (22-30) mmol/L Anion Gap mmol/L BUN (7-17) mg/dL Creatinine (0.52-1.04) mg/dL Est GFR (CKD-EPI)AfAm (>60 ml/min/1.73 sqM) Est GFR (CKD-EPI)NonAf (>60 ml/min/1.73 sqM) Glucose (74-99) mg/dL POC Glucose (mg/dL) (70-110) mg/dL POC Glu Hide Trimmer ID Lactic Ac Sepsis Rflx Y Plasma Lactic Acid Dom (0.7-2.0) mmol/L Calcium (8.4-10.2) mg/dL Phosphorus (2.5-4.5) mg/dL Magnesium (1.6-2.3) mg/dL Total Bilirubin (0.2-1.3) mg/dL AST (14-36) U/L ALT (4-34) U/L Alkaline Phosphatase (38-126) U/L Troponin I 4.390 H* (0.000-0.034) ng/mL Total Protein (6.3-8.2) g/dL Albumin (3.5-5.0) g/dL Amylase (30-110) U/L Lipase (23-300) U/L Urine Color Urine Appearance (Clear) Urine pH (5.0-8.0) Ur Specific Whately (1.001-1.035) Urine Protein (Negative) Urine Glucose (UA) (Negative) Urine Ketones (Negative) Urine Blood (Negative) Urine Nitrite (Negative) Urine Bilirubin (Negative) Urine Urobilinogen (<2.0) mg/dL Ur Leukocyte Esterase (Negative) Urine RBC (0-5) /hpf Urine WBC (0-5) /hpf Ur Squamous Epith Cells (0-4) /hpf Acetone, Qual (Negative) Influenza Type A (PCR) Not Detected (Not Detectd) Influenza Type B (PCR) Not Detected (Not Detectd) RSV (PCR) Not Detected (Not Detectd) SARS-CoV-2 (PCR) Not Detected (Not Detectd) 04/29/24 Range/Units 14:32 WBC (3.8-10.6) k/uL RBC (3.80-5.40) m/uL Hgb (11.4-16.0) gm/dL Hct (34.0-46.0) % MCV (80.0-100.0) fL MCH (25.0-35.0) pg MCHC (31.0-37.0) g/dL RDW (11.5-15.5) % Plt Count (150-450) k/uL MPV Neutrophils % % Lymphocytes % % Monocytes % % Eosinophils % % Basophils % % Neutrophils # (1.3-7.7) k/uL Lymphocytes # (1.0-4.8) k/uL Monocytes # (0-1.0) k/uL Eosinophils # (0-0.7) k/uL Basophils # (0-0.2) k/uL Sodium (137-145) mmol/L Potassium (3.5-5.1) mmol/L Chloride (98-107) mmol/L Carbon Dioxide (22-30) mmol/L Anion Gap mmol/L BUN (7-17) mg/dL Creatinine (0.52-1.04) mg/dL Est GFR (CKD-EPI)AfAm (>60 ml/min/1.73 sqM) Est GFR (CKD-EPI)NonAf (>60 ml/min/1.73 sqM) Glucose (74-99) mg/dL POC Glucose (mg/dL) (70-110) mg/dL POC Glu Hide Trimmer ID Lactic Ac Sepsis Rflx Plasma Lactic Acid Dom 1.2 (0.7-2.0) mmol/L Calcium (8.4-10.2) mg/dL Phosphorus (2.5-4.5) mg/dL Magnesium (1.6-2.3) mg/dL Total Bilirubin (0.2-1.3) mg/dL AST (14-36) U/L ALT (4-34) U/L Alkaline Phosphatase (38-126) U/L Troponin I (0.000-0.034) ng/mL Total Protein (6.3-8.2) g/dL Albumin (3.5-5.0) g/dL Amylase (30-110) U/L Lipase (23-300) U/L Urine Color Urine Appearance (Clear) Urine pH (5.0-8.0) Ur Specific Whately (1.001-1.035) Urine Protein (Negative) Urine Glucose (UA) (Negative) Urine Ketones (Negative) Urine Blood (Negative) Urine Nitrite (Negative) Urine Bilirubin (Negative) Urine Urobilinogen (<2.0) mg/dL Ur Leukocyte Esterase (Negative) Urine RBC (0-5) /hpf Urine WBC (0-5) /hpf Ur Squamous Epith Cells (0-4) /hpf Acetone, Qual (Negative) Influenza Type A (PCR) (Not Detectd) Influenza Type B (PCR) (Not Detectd) RSV (PCR) (Not Detectd) SARS-CoV-2 (PCR) (Not Detectd) - Radiology Data Radiology results: report reviewed, image reviewed Critical Care Time Critical Care Time: Yes Critical Care Time: >35 minutes Disposition Clinical Impression: NSTEMI (non-ST elevated myocardial infarction), Nausea and vomiting, Weakness Disposition: ADMITTED IP TO THIS HOSP
[2024-04-29] MEDS: SODIUM CHLORIDE 0.9% 1,000 ML IV STA (11:50)
[2024-04-29] MEDS: FAMOTIDINE 20 MG/2 ML VIAL IV STA (11:51)
[2024-04-29] MEDS: METOCLOPRAMIDE 5 MG/ML 2 ML VIAL IVP STA (11:51)
[2024-04-29 12:00] LABS: Basophils % (A) 0 %; Eosinophils % (A) 0 %; HCT 49.8 % (34.0-46.0); HGB 16.1 gm/dL (11.4-16.0); Lymphocytes # (A) 1.5 k/uL (1.0-4.8); Lymphocytes % (A) 13 %; MCH 29.3 pg (25.0-35.0); MCHC 32.3 g/dL (31.0-37.0); MCV 90.9 fL (80.0-100.0); Mean Platelet Volume 6.4; Monocytes # (A) 0.8 k/uL (0-1.0); Monocytes % (A) 7 %; Neutrophils % (A) 78 %; Platelet Count 365 k/uL (150-450); RBC 5.48 m/uL (3.80-5.40); WBC 11.6 k/uL (3.8-10.6)
[2024-04-29 12:11] LABS: ALT 36 U/L (4-34); AST 50 U/L (14-36); African American GFR (CKD) >90 (>60 ml/min/1.73 sqM); Albumin 4.6 g/dL (3.5-5.0); Alkaline Phosphatase 130 U/L (38-126); Amylase 48 U/L (30-110); Anion Gap 14 mmol/L; Blood Urea Nitrogen 23 mg/dL (7-17); Calcium 9.6 mg/dL (8.4-10.2); Carbon Dioxide 28 mmol/L (22-30); Chloride 89 mmol/L (98-107); Glucose 363 mg/dL (74-99); Lipase 30 U/L (23-300); Non-African American GFR(CKD) >90 (>60 ml/min/1.73 sqM); Phosphorus 2.2 mg/dL (2.5-4.5); Potassium 3.2 mmol/L (3.5-5.1); Sodium 131 mmol/L (137-145); Total Bilirubin 1.7 mg/dL (0.2-1.3); Total Protein 7.1 g/dL (6.3-8.2)
[2024-04-29] MEDS: POTASSIUM CHLORIDE 20 MEQ in WATER FOR INJECTION 1 100ML.BAG IVPB STA (12:56)
[2024-04-29 13:00] LABS: Appearance,Urine Clear (Clear); Bilirubin,Urine Negative (Negative); Blood,Urine Negative (Negative); Color,Urine Colorless; Glucose,Urine (UA) 4+ (Negative); Leukocyte Esterase,Urine Large (Negative); Nitrite,Urine Negative (Negative); Protein,Urine Trace (Negative); RBC,Urine 1 /hpf (0-5); Specific Gravity,Urine 1.017 (1.001-1.035); Squamous Epithelial Cell,Urine 1 /hpf (0-4); Urobilinogen,Urine <2.0 mg/dL (<2.0); WBC,Urine 50 /hpf (0-5)
[2024-04-29] MEDS: PROCHLORPERAZINE INJ 10 MG/2 ML VIAL IVP STA (13:02)
[2024-04-29] MEDS: POTASSIUM CHLORIDE ER 20 MEQ TAB.ER PO STA (13:03)
[2024-04-29 13:05] LABS: Ketones,Urine 3+ (Negative)
[2024-04-29] MEDS ORDERED: ACETAMINOPHEN TAB 325 MG TAB PO PRN (13:22)
[2024-04-29] MEDS ORDERED: ONDANSETRON 4 MG/2 ML VIAL IVP PRN (13:22)
[2024-04-29] MEDS ORDERED: NALOXONE 0.4 MG/ML 1 ML VIAL IV PRN (13:22)
[2024-04-29] MEDS: SODIUM CHLORIDE 0.9% 1,000 ML IV SCH (14:51)
[2024-04-29] MEDS: BUPRENORPHINE-NALOX 8-2 MG TAB 1 EACH TAB.SUBL SL ONE (14:52)
[2024-04-29] MEDS: HEPARIN SOD,PORK IN 0.45% NACL 25,000 UNIT in 0.45% NACL 1 250ML.BAG IV SCH (15:29)
[2024-04-29] MEDS: HEPARIN SODIUM 1,000 UN/ML (10ML VL) IV ONE (15:35)
--- NOTE | 2024-04-29 15:54 | P.CRDCN ---
History of Present Illness History of present illness: HISTORY OF PRESENT ILLNESS: This is a 63-year-old female with a past medical history significant for coronary artery disease with 12 stents (per patient), congestive heart failure, hypertension, hyperlipidemia, diabetes, DVT/PE, and suspected gastroparesis. Patient follows with a environmental compliance technician out of town, Dr Thad Shahid. We have been asked to see the patient in consultation for elevated troponins. Patient examined at the bedside in the emergency room. Patient son is present at the time of examination. Patient presented to the hospital for chief complaint of nausea and vomiting. Patient states that she gets these episodes about 3-4 times a year where she has severe nausea and vomiting that requires hospitalization. The patient denies having any chest pain or pressure. She denies any shortness of breath. Denies any dizziness or lightheadedness. The patient son states that she had a cardiac catheterization performed at [facility] at the end of March. Her son states that "she had two stents in one vessel with a space in between that was causing suspected microtrauma and her environmental compliance technician put in one long stent". He states this was a same day outpatient procedure and had been planned and was not due to patient having CP or NSTEMI. DIAGNOSTICS: - EKG reveals sinus mechanism with nonspecific ST-T wave changes. No signs of acute ischemia. - Laboratory data: WBC 11.6. Hemoglobin 16.1. Platelet count 365. Sodium 131. Potassium 3.2. BUN 23. Creatinine 0.56. Lactic acid 2.2. Troponin 3.760. 4.390. - Current home cardiac medications include Eliquis 5 mg twice a day, rosuvastatin 20 mg at night, amlodipine 5 mg daily, Brilinta 90 mg daily, lisinopril 40 mg daily - Most recent echocardiogram obtained in November 2021 revealed ejection fraction 45 to 50% with basal inferior lateral hypokinesis, trace aortic regurgitation, mild mitral regurgitation REVIEW OF SYSTEMS: At the time of my exam: CONSTITUTIONAL: Denies fever or chills. HEENT: Denies blurred vision, vision changes, or eye pain. Denies hemoptysis CARDIOVASCULAR: Denies chest pain. Denies orthopnea. Denies PND. Denies palpitations RESPIRATORY: Denies shortness of breath. GASTROINTESTINAL: Denies abdominal pain. HEMATOLOGIC: Denies bleeding disorders. GENITOURINARY: Denies any blood in urine. SKIN: Denies pruitis. Denies rash. PHYSICAL EXAM: VITAL SIGNS: Reviewed. GENERAL: Well-developed in no acute distress. HEENT: Head is normocephalic. Pupils are equal, round. Sclerae anicteric. Mucous membranes of the mouth are moist. Neck supple. No JVD or thyromegaly LUNGS: Respirations even and unlabored. Lungs essentially clear to auscultation bilaterally. HEART: Regular rate and rhythm. S1 and S2 heard. Soft systolic murmur noted. ABDOMEN: Soft. Nondistended. Nontender. EXTREMITIES: Normal range of motion. No clubbing or cyanosis. Peripheral pulses intact. No lower extremity edema NEUROLOGIC: Awake and alert. Oriented x 3. ASSESSMENT: Nausea and vomiting Diabetes with possible gastroparesis Hyperglycemia Hypokalemia Elevated lactic acid Non-STEMI Coronary artery disease with previous stenting, x 12 per patient Mild ischemic cardiomyopathy Chronic congestive heart failure with mildly reduced EF, currently not in acute exacerbation Hypertension Hyperlipidemia History of DVT/PE on Eliquis PLAN: Obtain 2D echo to assess cardiac structure and function Hold Eliquis. Begin IV heparin Continue Brilinta. Increase dosing to appropriate dosing of twice a day rather than daily Continue to trend troponins Obtain records from patient's primary environmental compliance technician Patient currently without any chest pain or pressure. Continue to trend troponins. Patient will be re-evaluated tomorrow. No plans for immediate cardiac catheterization. Patient states if cardiac catheterization is recommended, she does not wish to have this performed here. Further recommendations pending patient course Nurse practitioner note has been reviewed by physician. Signing provider agrees with the documented findings, assessment, and plan of care documented by [employer] as a scribe. Past Medical History Past Medical History: Diabetes Mellitus, Deep Vein Thrombosis (DVT), Hypertension, Myocardial Infarction ([place]), Pulmonary Embolus ([place]) Additional Past Medical History / Comment(s): bilateral ankle fracture, right upper arm fracture History of Any Multi-Drug Resistant Organisms: None Reported Past Surgical History: Heart Catheterization With Stent, Orthopedic Surgery Additional Past Surgical History / Comment(s): Stent x10, fliter in leg, detached retina, left arm fracture Date of Last Stent Placement:: december 2017 Past Psychological History: No Psychological Hx Reported Smoking Status: Never smoker Past Alcohol Use History: None Reported Past Drug Use History: None Reported - Past Family History Family Family Medical History: No Reported History Medications and Allergies Home Medications Medication Instructions Recorded Confirmed Type Apixaban [Eliquis] 5 mg PO BID 12/07/21 04/29/24 History DULoxetine HCL [Cymbalta] 60 mg PO BID 12/07/21 04/29/24 History Ezetimibe [Zetia] 10 mg PO HS 12/07/21 04/29/24 History Insulin Aspart [NovoLOG Flexpen] 30 - 50 units SQ TID-W/MEALS 12/07/21 04/29/24 History Insulin Detemir [Levemir Flextouch 40 units SQ BID 12/07/21 04/29/24 History Pen] Linaclotide [Linzess] 290 mcg PO DAILY 12/07/21 04/29/24 History Potassium Chloride ER [K-Dur 20] 20 meq PO DAILY 12/07/21 04/29/24 History Rosuvastatin [Crestor] 20 mg PO HS 12/07/21 04/29/24 History Buprenorphine-Nalox 8-2 mg Tab 1 tab SUBLINGUAL BID 04/29/24 04/29/24 History [Suboxone 8-2 mg Tab] Levothyroxine Sodium [Synthroid] 100 mcg PO DAILY 04/29/24 04/29/24 History Metoclopramide [Reglan] 10 mg PO DAILY 04/29/24 04/29/24 History Pantoprazole Sodium [Protonix] 20 mg PO DAILY 04/29/24 04/29/24 History Ticagrelor [Brilinta] 90 mg PO DAILY 04/29/24 04/29/24 History amLODIPine [Norvasc] 5 mg PO DAILY 04/29/24 04/29/24 History lisinopriL 40 mg PO DAILY 04/29/24 04/29/24 History Allergies Allergy/AdvReac Type Severity Reaction Status Date / Time butorphanol [From Stadol] Allergy Unknown Verified 04/29/24 12:01 codeine Allergy Rash/Hives Verified 04/29/24 12:01 meperidine [From Demerol] Allergy Anaphylaxis Verified 04/29/24 12:01 NSAIDS (Non-Steroidal Allergy Anaphylaxis Verified 04/29/24 12:01 Anti-Inflamma carvedilol [From Coreg] AdvReac Migraines Verified 04/29/24 12:01 dapagliflozin [From Farxiga] AdvReac DKA Verified 04/29/24 12:01 Physical Exam Vitals: Vital Signs Temp Pulse Resp BP Pulse Ox 04/29/24 12:48 86 18 156/98 98 04/29/24 11:10 98.7 F 111 H 18 183/83 96 Intake and Output 04/29/24 04/29/24 04/29/24 06:59 14:59 22:59 Other: Weight 74.389 kg Results 04/29/24 11:37 04/29/24 11:37 Cardiac Enzymes 04/29/24 04/29/24 04/29/24 Range/Units 11:37 11:48 14:32 AST 50 H (14-36) U/L Troponin I 3.760 H* 4.390 H* (0.000-0.034) ng/mL CBC 04/29/24 Range/Units 11:37 WBC 11.6 H (3.8-10.6) k/uL RBC 5.48 H (3.80-5.40) m/uL Hgb 16.1 H (11.4-16.0) gm/dL Hct 49.8 H (34.0-46.0) % Plt Count 365 (150-450) k/uL Comprehensive Metabolic Panel 04/29/24 Range/Units 11:37 Sodium 131 L (137-145) mmol/L Potassium 3.2 L (3.5-5.1) mmol/L Chloride 89 L (98-107) mmol/L Carbon Dioxide 28 (22-30) mmol/L BUN 23 H (7-17) mg/dL Creatinine 0.56 (0.52-1.04) mg/dL Glucose 363 H (74-99) mg/dL Calcium 9.6 (8.4-10.2) mg/dL AST 50 H (14-36) U/L ALT 36 H (4-34) U/L Alkaline Phosphatase 130 H (38-126) U/L Total Protein 7.1 (6.3-8.2) g/dL Albumin 4.6 (3.5-5.0) g/dL Current Medications Generic Name Dose Route Start Last Admin Trade Name Freq PRN Reason Stop Dose Admin Acetaminophen 650 mg 04/29/24 13:22 Acetaminophen Tab 325 Mg Tab PO Q6HR PRN Mild Pain or Fever > 100.5 Amlodipine Besylate 5 mg 04/30/24 09:00 Amlodipine 5 Mg Tab PO DAILY [facility] Atorvastatin Calcium 40 mg 04/29/24 21:00 Atorvastatin 40 Mg Tab PO HS [facility] Duloxetine HCl 60 mg 04/29/24 21:00 Duloxetine Hcl 60 Mg Capsule.Dr PO BID [facility] Ezetimibe 10 mg 04/29/24 21:00 Ezetimibe 10 Mg Tab PO HS [facility] Heparin Sodium (Porcine) 0 unit 04/29/24 14:39 Heparin Sodium 1,000 Un/Ml (10ml Vl) IV PER PROTOCOL PRN Low PTT Protocol Sodium Chloride 1,000 mls @ 75 mls/hr 04/29/24 13:30 04/29/24 14:51 Saline 0.9% IV 75 mls/hr .[id number] [facility] Administration Heparin Sodium/Sodium Chloride 250 mls @ 8.927 mls/hr 04/29/24 14:45 04/29/24 15:29 25,000 unit/ Sodium Chloride IV 12 units/kg/hr .Q24H [facility] 8.927 mls/hr Administration Protocol 12 UNITS/KG/HR Levothyroxine Sodium 100 mcg 04/30/24 06:30 Levothyroxine 100 Mcg Tab PO DAILY@0630 [facility] Lisinopril 40 mg 04/30/24 09:00 Lisinopril 20 Mg Tab PO DAILY [facility] Metoclopramide HCl 10 mg 04/29/24 13:23 Metoclopramide 5 Mg/Ml 2 Ml Vial IVP Q6H PRN Nausea And Vomiting Metoclopramide HCl 10 mg 04/30/24 09:00 Metoclopramide 10 Mg Tab PO DAILY [facility] Naloxone HCl 0.2 mg 04/29/24 13:22 Naloxone 0.4 Mg/Ml 1 Ml Vial IV Q2M PRN Opioid Reversal Non-Formulary Medication 1 tab 04/29/24 21:00 Buprenorphine-Nalox 8-2 Mg Tab SUBLINGUAL BID [facility] Non-Formulary Medication 290 mcg 04/30/24 09:00 Linaclotide [Linzess] PO DAILY [facility] Ondansetron HCl 4 mg 04/29/24 13:22 Ondansetron 4 Mg/2 Ml Vial IVP Q8HR PRN Nausea And Vomiting Pantoprazole Sodium 40 mg 04/30/24 09:00 Pantoprazole 40 Mg/10 Ml Vial IV DAILY [facility] Potassium Chloride 20 meq 04/30/24 09:00 Potassium Chloride Er 20 Meq Tab.Er PO DAILY [facility] Ticagrelor 90 mg 04/30/24 09:00 Ticagrelor 90 Mg Tab PO DAILY [facility] Intake and Output 04/29/24 04/29/24 04/29/24 06:59 14:59 22:59 Other: Weight 74.389 kg Patient Weight 04/30/24 06:59 Weight 74.389 kg 04/29/24 11:37 04/29/24 11:37
[2024-04-29 16:18] LABS: Prothrombin Time 10.9 sec (10.0-12.5)
--- NOTE | 2024-04-29 16:26 | XR ---
EXAMINATION TYPE: XR chest 2V DATE OF EXAM: 04/29/2024 COMPARISON: 12/07/2021 INDICATION: Weakness TECHNIQUE: Frontal and lateral views of the chest are obtained. FINDINGS: The heart size is normal. The pulmonary vasculature is normal. A faint rounded density in the right upper lung field may be present. This could be summation artifac t but measures 2.1 cm. Follow-up recommended. IMPRESSION: 1. There may be a nodular density within the right upper lung field. Follow-up is recommended. [facility], Workstation: [facility], 04/29/2024 4:24 PM
[2024-04-29 16:28] LABS: Glucose,Whole Blood 287 mg/dL (70-110)
[2024-04-29 16:30] LABS: Partial Thromboplastin Time 19.4 sec (22.0-30.0)
[2024-04-29] MEDS: lisinopriL 20 MG TAB PO STA (17:39)
[2024-04-29] MEDS: amLODIPine 5 MG TAB PO STA (17:39)
[2024-04-29] MEDS: NON FORMULARY DRUG (Buprenorphine-Nalox 8-2 Mg Tab 1 EACH Tablet) SUBLINGUAL SCH (18:24)
[2024-04-29] MEDS: INSULIN ASPART (NovoLOG) 100 UNIT/ML VIAL SQ SCH (18:25)
[2024-04-29 20:41] LABS: Glucose,Whole Blood 136 mg/dL (70-110)
[2024-04-29] MEDS: TICAGRELOR 90 MG TAB PO SCH (20:47)
[2024-04-29] MEDS: BUPRENORPHINE-NALOX 8-2 MG TAB 1 EACH TAB.SUBL SL SCH (20:47)
[2024-04-29] MEDS: DULoxetine HCL 60 MG CAPSULE.DR PO SCH (20:47)
[2024-04-29] MEDS: ATORVASTATIN 40 MG TAB PO SCH (20:47)
[2024-04-29] MEDS: EZETIMIBE 10 MG TAB PO SCH (20:47)
[2024-04-29] MEDS: INSULIN DETEMIR (LEVEMIR) 100 UNIT/ML SYR SQ SCH (20:48)
[2024-04-29] MEDS: ZOLPIDEM 5 MG TAB PO PRN (20:48)
--- NOTE | 2024-04-29 20:52 | CT ---
EXAMINATION TYPE: CT chest abdomen wo con CT DLP: 407.2 mGycm, Automated exposure control for dose reduction was used. DATE OF EXAM: 04/29/2024 8:30 PM COMPARISON: None. CLINICAL INDICATION: Female, 63 years old with history of nausea/vomiting; PHH, nausea/vomiting. Abdo rios and back pain. Technique: CT chest abdomen wo con; Multiple axial images were obtained. Two-dimensional coronal and sagittal reconstructions were obtained. Contrast used: mL of , none Oral contrast used: without Oral Contrast Findings: CHEST: LUNGS/ PLEURA: No focal consolidation, pneumothorax or pleural effusion. AIRWAY: Patent and unremarkable. HEART: Size within normal limits.Atherosclerosis of the arterial vasculature. MEDIASTINUM: No gross evidence of adenopathy. VASCULATURE: No aortic aneurysm. MUSCULOSKELETAL: Compression deformity to the L1 vertebrae with up to 50% height loss. Multilevel deg eneration changes spine with osteophyte formation and facet joint arthropathy. SOFT TISSUES/LYMPH NODES: Unremarkable. No evidence for significant spinal canal or neural foraminal stenosis. LOWER NECK: No significant findings. ABDOMEN: ABDOMEN LIVER: Unremarkable GALLBLADDER AND BILE DUCTS: The gallbladder is surgically absent. PANCREAS: Unremarkable. SPLEEN: Unremarkable. ADRENAL GLANDS: Unremarkable. KIDNEYS AND URETERS: No evidence of hydronephrosis or renal calculus. The ureters are unremarkable. STOMACH AND BOWEL: Small hiatal hernia, duodenum is unremarkable No evidence of bowel obstruction. PERITONEUM/RETROPERITONEUM: No evidence of pneumoperitoneum or free fluid. VASCULATURE: No evidence of aortic aneurysm. IVC filter in place. LYMPH NODES: No gross evidence for lymphadenopathy. SOFT TISSUE/ABDOMINAL WALL: Unremarkable IMPRESSION: 1. No acute thoracic or abdominal process. 2. Compression deformity to the L1 vertebrae with up to 50% height loss. Correlate with MRI to rule out acute/subacute compression fracture. 3. No evidence for bowel obstruction. 4. Small hiatal hernia. [facility], , 04/29/2024 8:50 PM
[2024-04-29] MEDS ORDERED: APIXABAN 5 MG TAB PO SCH (21:00)
[2024-04-29] MEDS: HEPARIN SODIUM 1,000 UN/ML (10ML VL) IV PRN (23:54)
[2024-04-30] MEDS: LEVOTHYROXINE 100 MCG TAB PO SCH (06:11)
[2024-04-30 06:54] LABS: Basophils % (A) 0 %; Eosinophils # (A) 0.1 k/uL (0-0.7); Eosinophils % (A) 1 %; HCT 40.9 % (34.0-46.0); Lymphocytes # (A) 2.8 k/uL (1.0-4.8); Lymphocytes % (A) 29 %; MCH 29.9 pg (25.0-35.0); MCHC 34.2 g/dL (31.0-37.0); MCV 87.6 fL (80.0-100.0); Monocytes # (A) 0.6 k/uL (0-1.0); Monocytes % (A) 7 %; Neutrophils # (A) 5.8 k/uL (1.3-7.7); Neutrophils % (A) 61 %; Platelet Count 280 k/uL (150-450); RBC 4.67 m/uL (3.80-5.40); RDW 13.7 % (11.5-15.5); WBC 9.6 k/uL (3.8-10.6)
[2024-04-30 07:05] LABS: Glucose,Whole Blood 103 mg/dL (70-110)
[2024-04-30 07:27] LABS: African American GFR (CKD) >90 (>60 ml/min/1.73 sqM); Anion Gap 4 mmol/L; Blood Urea Nitrogen 17 mg/dL (7-17); Carbon Dioxide 32 mmol/L (22-30); Chloride 104 mmol/L (98-107); Glucose 104 mg/dL (74-99); Non-African American GFR(CKD) >90 (>60 ml/min/1.73 sqM); Potassium 2.9 mmol/L (3.5-5.1); Sodium 140 mmol/L (137-145)
--- NOTE | 2024-04-30 08:20 | HP ---
HISTORY AND PHYSICAL HISTORY OF PRESENT ILLNESS: A 63-year-old, came into the hospital with nausea and vomiting 5 days ago. She has a couple of episodes every year, which required hospitalization with IV fluids and antiemetics. She is type 2 diabetic, possible gastroparesis for 5 days. Sugars have been in the 400s. She was sent to the ER due to progressive nausea, and vomiting. Denies any chest pain, or shortness of breath. HOME MEDICATIONS: 1. Linzess 290 daily. 2. K-Dur 20 mEq daily. 3. Crestor 20 mg daily. 4. Levemir 40 units subcu b.i.d. 5. Zetia 10 mg daily. 6. Eliquis 5 mg b.i.d. 7. Cymbalta 60 b.i.d. 8. Suboxone sublingual b.i.d. 9. Synthroid 100 daily. 10.Reglan 10 daily. 11.Protonix 20 daily. 12.Brilinta 90 daily. 13.Norvasc 5 daily. 14.Lisinopril 40 daily. ALLERGIES: Please see list. REVIEW OF SYSTEMS: A 14-point review of systems otherwise negative. PAST MEDICAL HISTORY: DVT, diabetes mellitus, hypertension, myocardial infarction, pulmonary embolism, bilateral ankle fractures, heart catheterization with stents, orthopedic surgery, stents x10, detached retina, left arm fracture. HABITS: She never smoked. No alcohol or drugs. PHYSICAL EXAMINATION: VITAL SIGNS: Temperature 98.7, pulse 90 to 111, respiratory rate 16 to 18, blood pressure 104 to 180s over 80 to 98. HEENT: Normocephalic, atraumatic. LUNGS: Decreased breath sounds. CARDIOVASCULAR: S1, S2. PSYCH: Fair mood and affect. INTEGUMENT: Dry skin, intact. NEUROLOGIC: Cranial nerves intact. LABORATORY DATA: Hemoglobin 16.1, hematocrit 69. Dr. Saenz started the patient on heparin, IV fluids and nausea, vomiting, antiemetics. Reglan the right upper lung field, possibly do a CTA of the chest. Continue current treatment. Prognosis guarded. MMODL / IJN: [id number] /
[2024-04-30] MEDS: METOCLOPRAMIDE 10 MG TAB PO SCH (08:49)
[2024-04-30] MEDS: amLODIPine 5 MG TAB PO SCH (08:49)
[2024-04-30] MEDS: PANTOPRAZOLE 40 MG/10 ML VIAL IV SCH (08:49)
[2024-04-30] MEDS: lisinopriL 20 MG TAB PO SCH (08:50)
[2024-04-30] MEDS: POTASSIUM CHLORIDE ER 20 MEQ TAB.ER PO SCH ×2 (08:50→12:25)
[2024-04-30] MEDS ORDERED: NON FORMULARY DRUG (Pantoprazole Sodium [Protonix] 20 MG Tablet) PO SCH (09:00)
[2024-04-30] MEDS ORDERED: TICAGRELOR 90 MG TAB PO SCH (09:00)
[2024-04-30] MEDS: IPRATROPIUM-ALBUTEROL 3 ML NEB INHALATION SCH (09:21)
[2024-04-30 12:01] LABS: Glucose,Whole Blood 133 mg/dL (70-110)
[2024-04-30] MEDS: NON FORMULARY DRUG (Linaclotide [Linzess] 290 MCG Capsule) PO SCH (12:20)
--- NOTE | 2024-04-30 12:22 | P.PN ---
Subjective Patient pleasant 63-year-old female came in with complaints of nausea vomiting abdominal discomfort found to have mild elevated troponins which are highly elevated about 4.5 on admission presently 3.7. Patient had nonspecific ST-T wave changes in the EKG patient elevated white count. Patient was eval by cardiology patient had history of coronary disease congestive heart failure and gastroparesis history in the past. Patient on IV heparin at this time patient declined any procedures at this time because of which patient is being medically managed. REVIEW OF SYSTEMS: All other systems are negative except those mentioned in the HPI PHYSICAL EXAMINATION: GENERAL: The patient is alert and oriented x3, not in any acute distress. Well developed, well nourished. HEENT: Pupils are round and equally reacting to light. EOMI. No scleral icterus. No conjunctival pallor. Normocephalic, atraumatic. No pharyngeal erythema. No th yromegaly. CARDIOVASCULAR: S1 and S2 present. No murmurs, rubs, or gallops. PULMONARY: Chest is clear to auscultation, no wheezing or crackles. ABDOMEN: Soft, nontender, nondistended, normoactive bowel sounds. No palpable organomegaly. MUSCULOSKELETAL: No joint swelling or deformity. EXTREMITIES: No cyanosis, clubbing, or pedal edema. NEUROLOGICAL: Gross neurological examination did not reveal any focal deficits. SKIN: No rashes. Assessment and plan -Acute non-ST elevation myocardial infarction possibly type I patient is on IV heparin further management/cardiac catheterization as per cardiology and as per patient's wishes. Heparin is being temporarily held at this time -Nausea vomiting can be inferior wall ND patient will be continued on Protonix there may be a competent of gastritis or gastroparesis -Hyperglycemia which improved at this time continue with present regimen -Hypokalemia will correct the potassium aggressively -Lactic acidosis secondary to poor organ perfusion without any evidence of infection at this time -Congestive heart failure chronic systolic dysfunction without any acute exacerbation continue with present regimen -Hypertension -Hyperlipidemia -History of DVT and pulmonary embolism in the past for which patient is on Eliquis at home presently on IV heparin. DVT prophylaxis: On IV heparin at this time Objective - Vital Signs Vital signs: Vital Signs Temp 98 F 04/30/24 08:00 Pulse 85 04/30/24 08:00 Resp 16 04/30/24 08:00 BP 169/82 10/18/24 08:00 Pulse Ox 97 04/30/24 08:00 FiO2 Intake & Output 04/29/24 04/30/24 04/30/24 18:59 06:59 18:59 Intake Total 120 75.136 Balance 120 75.136 Weight 74.389 kg 60 kg Intake: Intake, IV Titration 75.136 Amount Heparin Sod,Pork in 0.45% 75.136 NaCl 25,000 unit In 0.45 % NaCl 1 250ml.bag @ 12 UNITS/KG/HR 8.927 mls/hr IV .Q24H [facility] Rx#: [id number] Oral 120 Other: Voiding Method Bedside Commode Bedside Commode Bedside Commode # Voids 1 1 - Labs CBC & Chem 7: 04/30/24 06:33 04/30/24 06:33 Labs: Abnormal Lab Results - Last 24 Hours (Table) 04/29/24 04/29/24 04/29/24 Range/Units 11:37 11:48 14:32 APTT (22.0-30.0) sec Potassium (3.5-5.1) mmol/L Carbon Dioxide (22-30) mmol/L Creatinine (0.52-1.04) mg/dL Glucose (74-99) mg/dL POC Glucose (mg/dL) (70-110) mg/dL Hemoglobin A1c (<=6.0) % Troponin I 3.760 H* 4.390 H* (0.000-0.034) ng/mL Urine Protein Trace H (Negative) Urine Glucose (UA) 4+ H (Negative) Urine Ketones 3+ H (Negative) Ur Leukocyte Esterase Large H (Negative) Urine WBC 50 H (0-5) /hpf 04/29/24 04/29/24 04/29/24 Range/Units 15:24 16:26 20:36 APTT 19.4 L (22.0-30.0) sec Potassium (3.5-5.1) mmol/L Carbon Dioxide (22-30) mmol/L Creatinine (0.52-1.04) mg/dL Glucose (74-99) mg/dL POC Glucose (mg/dL) 287 H 136 H (70-110) mg/dL Hemoglobin A1c (<=6.0) % Troponin I (0.000-0.034) ng/mL Urine Protein (Negative) Urine Glucose (UA) (Negative) Urine Ketones (Negative) Ur Leukocyte Esterase (Negative) Urine WBC (0-5) /hpf 04/29/24 04/30/24 04/30/24 Range/Units 21:04 06:26 06:33 APTT (22.0-30.0) sec Potassium 2.9 L (3.5-5.1) mmol/L Carbon Dioxide 32 H (22-30) mmol/L Creatinine 0.51 L (0.52-1.04) mg/dL Glucose 104 H (74-99) mg/dL POC Glucose (mg/dL) (70-110) mg/dL Hemoglobin A1c 10.9 H (<=6.0) % Troponin I 3.730 H* (0.000-0.034) ng/mL Urine Protein (Negative) Urine Glucose (UA) (Negative) Urine Ketones (Negative) Ur Leukocyte Esterase (Negative) Urine WBC (0-5) /hpf 04/30/24 04/30/24 Range/Units 06:33 12:00 APTT 46.8 H (22.0-30.0) sec Potassium (3.5-5.1) mmol/L Carbon Dioxide (22-30) mmol/L Creatinine (0.52-1.04) mg/dL Glucose (74-99) mg/dL POC Glucose (mg/dL) 133 H (70-110) mg/dL Hemoglobin A1c (<=6.0) % Troponin I (0.000-0.034) ng/mL Urine Protein (Negative) Urine Glucose (UA) (Negative) Urine Ketones (Negative) Ur Leukocyte Esterase (Negative) Urine WBC (0-5) /hpf
--- NOTE | 2024-04-30 12:32 | P.PN ---
Subjective HISTORY OF PRESENT ILLNESS: This is a 63-year-old female with a past medical history significant for coronary artery disease with 12 stents (per patient), congestive heart failure, hypertension, hyperlipidemia, diabetes, DVT/PE, and suspected gastroparesis. Patient follows with a preformer impregnated fabrics out of town, Dr Thad Shahid. We have been asked to see the patient in consultation for elevated troponins. Patient examined at the bedside in the emergency room. Patient son is present at the time of examination. Patient presented to the hospital for chief complaint of nausea and vomiting. Patient states that she gets these episodes about 3-4 t imes a year where she has severe nausea and vomiting that requires hospitalization. The patient denies having any chest pain or pressure. She denies any shortness of breath. Denies any dizziness or lightheadedness. The patient son states that she had a cardiac catheterization performed at [facility] at the end of March. Her son states that "she had two stents in one vessel with a space in between that was causing suspected microtrauma and her preformer impregnated fabrics put in one long stent". He states this was a same day outpatient procedure and had been planned and was not due to patient having CP or NSTEMI. DIAGNOSTICS: - EKG reveals sinus mechanism with nonspecific ST-T wave changes. No signs of acute ischemia. - Laboratory data: WBC 11.6. Hemoglobin 16.1. Platelet count 365. Sodium 131. Potassium 3.2. BUN 23. Creatinine 0.56. Lactic acid 2.2. Troponin 3.760. 4.390. - Current home cardiac medications include Eliquis 5 mg twice a day, rosuvastatin 20 mg at night, amlodipine 5 mg daily, Brilinta 90 mg daily, lisinopril 40 mg daily - Most recent echocardiogram obtained in November 2021 revealed ejection fraction 45 to 50% with basal inferior lateral hypokinesis, trace aortic regurgitation, mild mitral regurgitation 04/30/2024 Patient examined this morning at the bedside. Patient reports her nausea and vomiting have improved. She is currently eating breakfast at the time of examination. Patient currently denies chest pain or pressure. She denies shortness of breath. She remains on IV heparin. Troponins resulted at 3.760. 4.390. 3.730. 2D echo remains pending. Also awaiting records from patient's primary preformer impregnated fabrics. PHYSICAL EXAM: VITAL SIGNS: Reviewed. GENERAL: Well-developed in no acute distress. HEENT: Head is normocephalic. Pupils are equal, round. Sclerae anicteric. Mucous membranes of the mouth are moist. Neck supple. No JVD or thyromegaly LUNGS: Respirations even and unlabored. Lungs essentially clear to auscultation bilaterally. HEART: Regular rate and rhythm. S1 and S2 heard. Soft systolic murmur noted. ABDOMEN: Soft. Nondistended. Nontender. EXTREMITIES: Normal range of motion. No clubbing or cyanosis. Peripheral puls es intact. No lower extremity edema NEUROLOGIC: Awake and alert. Oriented x 3. ASSESSMENT: Nausea and vomiting Diabetes with possible gastroparesis Hyperglycemia Hypokalemia Elevated lactic acid Non-STEMI Coronary artery disease with previous stenting, x 12 per patient Mild ischemic cardiomyopathy Chronic congestive heart failure with mildly reduced EF, currently not in acute exacerbation Hypertension Hyperlipidemia History of DVT/PE on Eliquis PLAN: 2D echo has been ordered. Await results. Continue heparin for an additional 24 hours. Patient may be resumed on Eliquis tomorrow. Awaiting records from patient's primary preformer impregnated fabrics Patient states she is not interested in having any procedures such as cardiac cath performed at this facility Patient to follow-up postdischarge with her primary preformer impregnated fabrics Further recommendations pending patient course Nurse practitioner note has been reviewed by physician. Signing provider agrees with the documented findings, assessment, and plan of care documented by WEB MASTER as a scribe. Objective - Vital Signs Vital signs: Vital Signs Temp 98 F 04/30/24 08:00 Pulse 85 04/30/24 08:00 Resp 16 04/30/24 08:00 BP 169/82 04/30/24 08:00 Pulse Ox 97 04/30/24 08:00 FiO2 Intake & Output 04/29/24 04/30/24 04/30/24 18:59 06:59 18:59 Intake Total 120 75.136 Balance 120 75.136 Weight 74.389 kg 60 kg Intake: Intake, IV Titration 75.136 Amount Heparin Sod,Pork in 0.45% 75.136 NaCl 25,000 unit In 0.45 % NaCl 1 250ml.bag @ 12 UNITS/KG/HR 8.927 mls/hr IV .Q24H [facility] Rx#: [id number] Oral 120 Other: Voiding Method Bedside Commode Bedside Commode Bedside Commode # Voids 1 1 - Labs CBC & Chem 7: 04/30/24 06:33 04/30/24 06:33 Labs: Abnormal Lab Results - Last 24 Hours (Table) 04/29/24 04/29/24 04/29/24 Range/Units 11:37 11:48 14:32 APTT (22.0-30.0) sec Potassium (3.5-5.1) mmol/L Carbon Dioxide (22-30) mmol/L Creatinine (0.52-1.04) mg/dL Glucose (74-99) mg/dL POC Glucose (mg/dL) (70-110) mg/dL Hemoglobin A1c (<=6.0) % Troponin I 3.760 H* 4.390 H* (0.000-0.034) ng/mL Urine Protein Trace H (Negative) Urine Glucose (UA) 4+ H (Negative) Urine Ketones 3+ H (Negative) Ur Leukocyte Esterase Large H (Negative) Urine WBC 50 H (0-5) /hpf 04/29/24 04/29/24 04/29/24 Range/Units 15:24 16:26 20:36 APTT 19.4 L (22.0-30.0) sec Potassium (3.5-5.1) mmol/L Carbon Dioxide (22-30) mmol/L Creatinine (0.52-1.04) mg/dL Glucose (74-99) mg/dL POC Glucose (mg/dL) 287 H 136 H (70-110) mg/dL Hemoglobin A1c (<=6.0) % Troponin I (0.000-0.034) ng/mL Urine Protein (Negative) Urine Glucose (UA) (Negative) Urine Ketones (Negative) Ur Leukocyte Esterase (Negative) Urine WBC (0-5) /hpf 04/29/24 04/30/24 04/30/24 Range/Units 21:04 06:26 06:33 APTT (22.0-30.0) sec Potassium 2.9 L (3.5-5.1) mmol/L Carbon Dioxide 32 H (22-30) mmol/L Creatinine 0.51 L (0.52-1.04) mg/dL Glucose 104 H (74-99) mg/dL POC Glucose (mg/dL) (70-110) mg/dL Hemoglobin A1c 10.9 H (<=6.0) % Troponin I 3.730 H* (0.000-0.034) ng/mL Urine Protein (Negative) Urine Glucose (UA) (Negative) Urine Ketones (Negative) Ur Leukocyte Esterase (Negative) Urine WBC (0-5) /hpf 04/30/24 04/30/24 Range/Units 06:33 12:00 APTT 46.8 H (22.0-30.0) sec Potassium (3.5-5.1) mmol/L Carbon Dioxide (22-30) mmol/L Creatinine (0.52-1.04) mg/dL Glucose (74-99) mg/dL POC Glucose (mg/dL) 133 H (70-110) mg/dL Hemoglobin A1c (<=6.0) % Troponin I (0.000-0.034) ng/mL Urine Protein (Negative) Urine Glucose (UA) (Negative) Urine Ketones (Negative) Ur Leukocyte Esterase (Negative) Urine WBC (0-5) /hpf
--- NOTE | 2024-04-30 15:48 | CA ---
Transthoracic Echo Report Name: Bethany Linares Age: 63 Gender: F : 1960 Exam Date: 04/30/2024 08:43 Exam Location: [facility] Ht (in): 65 Wt (lb): 164 Ordering Physician: Elida Chinchilla Attending/Referring Phys: [id number], Renée Porcelain Finisher Love Suazo RDCS Procedure CPT: Indications: LV function, elevated troponins, history of stent Cardiac Hx: Technical Quality: Fair Contrast 1: Total Dose (mL): Contrast 2: Total Dose (mL): MEASUREMENTS (Male / Female) Normal Values 2D ECHO LV Diastolic Diameter PLAX 5.2 cm 4.2 - 5.9 / 3.9 - 5.3 cm LV Systolic Diameter PLAX 3.7 cm IVS Diastolic Thickness 1.2 cm 0.6 - 1.0 / 0.6 - 0.9 cm LVPW Diastolic Thickness 1.2 cm 0.6 - 1.0 / 0.6 - 0.9 cm LV Relative Wall Thickness 0.5 RV Internal Dim ED PLAX 3.1 cm LA Volume 52.7 cm??? 18 - 58 / 22 - 52 cm??? LA Volume Index 28.3 cm???/m??? 16 - 28 cm???/m??? M-MODE Aortic Root Diameter MM 2.7 cm LA Systolic Diameter MM 4.1 cm LA Ao Ratio MM 1.5 AV Cusp Separation MM 1.8 cm DOPPLER AV Peak Velocity 151.2 cm/s AV Peak Gradient 9.1 mmHg AV Mean Velocity 94.5 cm/s AV Mean Gradient 4.2 mmHg AV Velocity Time Integral 26.3 cm AI Peak Velocity 425.6 cm/s AI Peak Gradient 72.4 mmHg AI Pressure Half Time 595.6 ms LVOT Peak Velocity 88.6 cm/s LVOT Peak Gradient 3.1 mmHg LVOT Velocity Time Integral 17.3 cm MV Area PHT 3.4 cm??? Mitral E Point Velocity 67.2 cm/s Mitral A Point Velocity 125.8 cm/s Mitral E to A Ratio 0.5 MV Deceleration Time 220.8 ms MV E' Velocity 2.9 cm/s Mitral E to MV E' Ratio 23.5 TR Peak Velocity 191.3 cm/s TR Peak Gradient 14.6 mmHg Right Ventricular Systolic Press 19.6 mmHg FINDINGS Left Ventricle Mildly increased left ventricular wall thickness. Left ventricular cavity size normal. Normal left ventricular systolic function with no obvious regional wall motion abnormalities. Left ventricular ejection fraction is estimated at 55 %. Grade 1 diastolic dysfunction. Right Ventricle Normal right ventricular size and function. Right ventricular systolic pressure within normal limits. Right Atrium Normal right atrial size. Left Atrium Normal left atrial size. Mitral Valve Structurally normal mitral valve. Mitral annular calcification. Mild mitral regurgitation. Aortic Valve Trileaflet aortic valve. No aortic stenosis. Aortic valve sclerosis. Mild aortic regurgitation. Eccentric aortic regurgitation jet directed at the mitral valve. Tricuspid Valve Structurally normal tricuspid valve. Mild tricuspid regurgitation. Pulmonic Valve Structurally normal pulmonic valve. Pericardium No pericardial effusion. Aorta Normal size aortic root and proximal ascending aorta. CONCLUSIONS Left ventricular ejection fraction 55% Mildly increased left ventricular wall thickness Mild mitral regurgitation Mild aortic regurgitation Mild tricuspid regurgitation RVSP 19 Previewed by: Dr. Douglas Acevedo DO (Electronically Signed) Final Date: 30 April 2024 15:48
[2024-04-30] MEDS: INSULIN ASPART (NovoLOG) 100 UNIT/ML VIAL SQ SCH (16:09)
[2024-04-30] MEDS: INSULIN DETEMIR (LEVEMIR) 100 UNIT/ML SYR SQ SCH ×2 (16:09→21:51)
[2024-04-30] MEDS: METOCLOPRAMIDE 5 MG/ML 2 ML VIAL IVP PRN (16:21)
[2024-04-30 16:40] LABS: Glucose,Whole Blood 197 mg/dL (70-110)
[2024-04-30 20:19] LABS: Glucose,Whole Blood 53 mg/dL (70-110)
[2024-04-30 20:29] LABS: Glucose,Whole Blood 56 mg/dL (70-110)
[2024-04-30 20:42] LABS: Glucose,Whole Blood 69 mg/dL (70-110)
[2024-04-30 20:56] LABS: Glucose,Whole Blood 69 mg/dL (70-110)
[2024-04-30 21:33] LABS: Glucose,Whole Blood 138 mg/dL (70-110)
[2024-05-01 06:08] LABS: Glucose,Whole Blood 245 mg/dL (70-110)
[2024-05-01] MEDS: INSULIN ASPART (NovoLOG) 100 UNIT/ML VIAL SQ SCH (06:23)
[2024-05-01] MEDS: INSULIN DETEMIR (LEVEMIR) 100 UNIT/ML SYR SQ SCH ×2 (06:28→21:37)
[2024-05-01 07:29] LABS: Basophils % (A) 1 %; Eosinophils % (A) 0 %; HCT 41.3 % (34.0-46.0); HGB 13.5 gm/dL (11.4-16.0); Lymphocytes # (A) 1.5 k/uL (1.0-4.8); Lymphocytes % (A) 22 %; MCH 30.2 pg (25.0-35.0); MCHC 32.8 g/dL (31.0-37.0); MCV 92.1 fL (80.0-100.0); Monocytes # (A) 0.4 k/uL (0-1.0); Monocytes % (A) 6 %; Neutrophils # (A) 4.6 k/uL (1.3-7.7); Neutrophils % (A) 69 %; Platelet Count 262 k/uL (150-450); RBC 4.48 m/uL (3.80-5.40); RDW 13.8 % (11.5-15.5); WBC 6.7 k/uL (3.8-10.6)
[2024-05-01 07:30] LABS: ALT 25 U/L (4-34); AST 27 U/L (14-36); African American GFR (CKD) >90 (>60 ml/min/1.73 sqM); Albumin 3.5 g/dL (3.5-5.0); Alkaline Phosphatase 108 U/L (38-126); Anion Gap 6 mmol/L; Blood Urea Nitrogen 8 mg/dL (7-17); Calcium 8.3 mg/dL (8.4-10.2); Carbon Dioxide 28 mmol/L (22-30); Chloride 101 mmol/L (98-107); Glucose 222 mg/dL (74-99); Non-African American GFR(CKD) >90 (>60 ml/min/1.73 sqM); Potassium 3.3 mmol/L (3.5-5.1); Sodium 135 mmol/L (137-145); Total Bilirubin 1.3 mg/dL (0.2-1.3)
[2024-05-01] MEDS: PANTOPRAZOLE 40 MG TABLET PO SCH (09:28)
[2024-05-01 11:15] VITALS: BMI 26.1
[2024-05-01 11:47] LABS: Glucose,Whole Blood 163 mg/dL (70-110)
[2024-05-01] MEDS: POTASSIUM CHLORIDE ER 20 MEQ TAB.ER PO STA (12:18)
[2024-05-01 14:50] LABS: Glucose,Whole Blood 46 mg/dL (70-110)
[2024-05-01 15:08] LABS: Glucose,Whole Blood 62 mg/dL (70-110)
[2024-05-01 16:27] LABS: Glucose,Whole Blood 183 mg/dL (70-110)
[2024-05-01 20:41] LABS: Glucose,Whole Blood 132 mg/dL (70-110)
[2024-05-01] MEDS: METOPROLOL SUCCINATE (ER) 25 MG TAB.ER.24H PO SCH (21:38)
[2024-05-02 06:02] LABS: Glucose,Whole Blood 196 mg/dL (70-110)
--- NOTE | 2024-05-02 07:28 | P.PN ---
Subjective Progress Note Date: 05/01/24 Patient pleasant 63-year-old female came in with complaints of nausea vomiting abdominal discomfort found to have mild elevated troponins which are highly elevated about 4.5 on admission presently 3.7. Patient had nonspecific ST-T wave changes in the EKG patient elevated white count. Patient was eval by cardiology patient had history of coronary disease congestive heart failure and gastroparesis history in the past. Patient on IV heparin at this time patient declined any procedures at this time because of which patient is being medically managed. 05/01/2024 Patient is evaluated in follow-up resting in bed she has no further complaints of nausea vomiting abdominal discomfort she is also not having any chest pain or shortness of breath. 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 Patient is maintained on aspirin Brilinta. Eliquis remains on hold and cardiology is recommending to continue the IV heparin for 1 more night and patient will be considered for discharge home tomorrow to follow-up with her primary central office repairer supervisor. Review of Systems Constitutional: Denied any fatigue denied any fever. Cardio vascular: denied any chest pain, palpitations Gastrointestinal: denied any nausea, vomiting, diarrhea Pulmonary: Denied any shortness of breath cough Neurologic denied any new focal deficits All inpatient medications were reviewed and appropriate changes in these medications as dictated in the interval history and assessment and plan. PHYSICAL EXAMINATION: GENERAL: The patient is alert and oriented x3, not in any acute distress. Well developed, well nourished. HEENT: Pupils are round and equally reacting to light. EOMI. No scleral icterus. No conjunctival pallor. Normocephalic, atraumatic. No pharyngeal erythema. No thyromegaly. CARDIOVASCULAR: S1 and S2 present. No murmurs, rubs, or gallops. PULMONARY: Chest is clear to auscultation, no wheezing or crackles. ABDOMEN: Soft, nontender, nondistended, normoactive bowel sounds. No palpable organomegaly. MUSCULOSKELETAL: No joint swelling or deformity. EXTREMITIES: No cyanosis, clubbing, or pedal edema. NEUROLOGICAL: Gross neurological examination did not reveal any focal deficits. SKIN: No rashes. Assessment and plan -Acute non-ST elevation myocardial infarction possibly type I patient is on IV heparin patient will monitor overnight if patient remains symptom-free will be considered for discharge home tomorrow -Nausea vomiting can be inferior wall ND patient will be continued on Protonix there may be a competent of gastritis or gastroparesis -Hyperglycemia which improved at this time continue with present regimen -Hypokalemia will correct the potassium aggressively -Lactic acidosis secondary to poor organ perfusion without any evidence of infection at this time -Congestive heart failure chronic systolic dysfunction without any acute exacerbation continue with present regimen -Hypertension -Hyperlipidemia -History of DVT and pulmonary embolism in the past for which patient is on Eliquis at home presently on IV heparin. DVT prophylaxis: On IV heparin at this time The impression and plan of care has been dictated by Gregoria Piña, Nurse Practitioner as directed. Dr. Yosef MD I have performed a history and physical examination and medical decision making of this patient, discussed the same with the dictator, and agree with the dictators assessment and plan as written, documented as a scribe. Based on total visit time, I have performed more than 50% of this visit. Objective - Vital Signs Vital signs: Vital Signs Temp 98.6 F 05/01/24 11:53 Pulse 93 05/01/24 14:00 Resp 16 05/01/24 14:00 BP 159/91 05/01/24 11:53 Pulse Ox 99 05/01/24 11:53 FiO2 Intake & Output 04/30/24 05/01/24 05/01/24 18:59 06:59 18:59 Intake Total 292.864 540 945.718 Balance 292.864 540 945.718 Weight 43 kg 71.169 kg Intake: IV 602 Heparin Sod,Pork in 0.45% 77 NaCl 25,000 unit In 0.45 % NaCl 1 250ml.bag @ 12 UNITS/KG/HR 8.927 mls/hr IV .Q24H [facility] Rx#: [id number] Sodium Chloride 0.9% 1, 525 000 ml @ 75 mls/hr IV . [id number] [facility] Rx#:[id number] Intake, IV Titration 174.864 223.718 Amount Heparin Sod,Pork in 0.45% 174.864 223.718 NaCl 25,000 unit In 0.45 % NaCl 1 250ml.bag @ 12 UNITS/KG/HR 8.927 mls/hr IV .Q24H [facility] 234 BEDS AT [facility] Rx#: [id number] Oral 118 540 120 Other: Voiding Method Bedside Commode Bedside Commode Bedside Commode # Voids 1 # Bowel Movements 1 - Labs CBC & Chem 7: 05/01/24 06:35 05/01/24 06:35 Labs: Abnormal Lab Results - Last 24 Hours (Table) 04/30/24 04/30/24 04/30/24 Range/Units 16:39 20:18 20:27 APTT (22.0-30.0) sec Sodium (137-145) mmol/L Potassium (3.5-5.1) mmol/L Creatinine (0.52-1.04) mg/dL Glucose (74-99) mg/dL POC Glucose (mg/dL) 197 H 53 L 56 L (70-110) mg/dL Calcium (8.4-10.2) mg/dL Total Protein (6.3-8.2) g/dL 04/30/24 04/30/24 04/30/24 Range/Units 20:40 20:55 21:32 APTT (22.0-30.0) sec Sodium (137-145) mmol/L Potassium (3.5-5.1) mmol/L Creatinine (0.52-1.04) mg/dL Glucose (74-99) mg/dL POC Glucose (mg/dL) 69 L 69 L 138 H (70-110) mg/dL Calcium (8.4-10.2) mg/dL Total Protein (6.3-8.2) g/dL 05/01/24 05/01/24 05/01/24 Range/Units 06:06 06:35 06:35 APTT 44.5 H (22.0-30.0) sec Sodium 135 L (137-145) mmol/L Potassium 3.3 L (3.5-5.1) mmol/L Creatinine 0.33 L (0.52-1.04) mg/dL Glucose 222 H (74-99) mg/dL POC Glucose (mg/dL) 245 H (70-110) mg/dL Calcium 8.3 L (8.4-10.2) mg/dL Total Protein 6.0 L (6.3-8.2) g/dL 05/01/24 05/01/24 05/01/24 Range/Units 11:45 14:48 15:06 APTT (22.0-30.0) sec Sodium (137-145) mmol/L Potassium (3.5-5.1) mmol/L Creatinine (0.52-1.04) mg/dL Glucose (74-99) mg/dL POC Glucose (mg/dL) 163 H 46 L* 62 L (70-110) mg/dL Calcium (8.4-10.2) mg/dL Total Protein (6.3-8.2) g/dL Microbiology - Last 24 Hours (Table) 04/29/24 11:37 Urine Culture - Final Urine,Clean Catch Assessment and Plan Time with Patient: Less than 30
[2024-05-02 08:11] LABS: African American GFR (CKD) >90 (>60 ml/min/1.73 sqM); Anion Gap 4 mmol/L; Blood Urea Nitrogen 6 mg/dL (7-17); Calcium 8.7 mg/dL (8.4-10.2); Carbon Dioxide 29 mmol/L (22-30); Chloride 102 mmol/L (98-107); Glucose 211 mg/dL (74-99); Non-African American GFR(CKD) >90 (>60 ml/min/1.73 sqM); Potassium 3.6 mmol/L (3.5-5.1); Sodium 135 mmol/L (137-145)
[2024-05-02 11:36] LABS: Glucose,Whole Blood 233 mg/dL (70-110)
[2024-05-02] MEDS: APIXABAN 5 MG TAB PO SCH (12:06)
[2024-05-02 16:32] LABS: Glucose,Whole Blood 196 mg/dL (70-110)
[2024-05-02 20:11] LABS: Glucose,Whole Blood 268 mg/dL (70-110)
[2024-05-02] MEDS: PANTOPRAZOLE 40 MG/10 ML VIAL IVP SCH (21:08)
--- NOTE | 2024-05-02 23:57 | P.PN ---
Subjective Progress Note Date: 05/01/24 HISTORY OF PRESENT ILLNESS: This is a 63-year-old female with a past medical history significant for co ronary artery disease with 12 stents (per patient), congestive heart failure, hypertension, hyperlipidemia, diabetes, DVT/PE, and suspected gastroparesis. Patient follows with a boilermaker central steam plant out of town, Dr Thad Shahid. We have been asked to see the patient in consultation for elevated troponins. Patient examined at the bedside in the emergency room. Patient son is present at the time of examination. Patient presented to the hospital for chief complaint of nausea and vomiting. Patient states that she gets these episodes about 3-4 times a year where she has severe nausea and vomiting that requires hospitalization. The patient denies having any chest pain or pressure. She denies any shortness of breath. Denies any dizziness or lightheadedness. The patient son states that she had a cardiac catheterization performed at [facility] at the end of March. Her son states that "she had two stents in one vessel with a space in between that was causing suspected microtra justine and her boilermaker central steam plant put in one long stent". He states this was a same day outpatient procedure and had been planned and was not due to patient having CP or NSTEMI. DIAGNOSTICS: - EKG reveals sinus mechanism with nonspecific ST-T wave changes. No signs of acute ischemia. - Laboratory data: WBC 11.6. Hemoglobin 16.1. Platelet count 365. Sodium 131. Potassium 3.2. BUN 23. Creatinine 0.56. Lactic acid 2.2. Troponin 3.760. 4.390. - Current home cardiac medications include Eliquis 5 mg twice a day, rosuvastatin 20 mg at night, amlodipine 5 mg daily, Brilinta 90 mg daily, lisinopril 40 mg daily - Most recent echocardiogram obtained in November 2021 revealed ejection fraction 45 to 50% with basal inferior lateral hypokinesis, trace aortic regurgitation, mild mitral regurgitation 04/30/2024 Patient examined this morning at the bedside. Patient reports her nausea and vomiting have improved. She is currently eating breakfast at the time of examination. Patient currently denies chest pain or pressure. She denies shortness of breath. She remains on IV heparin. Troponins resulted at 3.760. 4.390. 3.730. 2D echo remains pending. Also awaiting records from patient's primary boilermaker central steam plant. 05/01/2024 Seen and examined at bedside this a.m. No reported chest pain but continues to have on and off nausea and vomiting. PHYSICAL EXAM: VITAL SIGNS: Reviewed. GENERAL: Well-developed in no acute distress. HEENT: Head is normocephalic. Pupils are equal, round. Sclerae anicteric. Mucous membranes of the mouth are moist. Neck supple. No JVD or thyromegaly LUNGS: Respirations even and unlabored. Lungs essentially clear to auscultation bilaterally. HEART: Regular rate and rhythm. S1 and S2 heard. Soft systolic murmur noted. ABDOMEN: Soft. Nondistended. Nontender. EXTREMITIES: Normal range of motion. No clubbing or cyanosis. Peripheral pulses intact. No lower extremity edema NEUROLOGIC: Awake and alert. Oriented x 3. ASSESSMENT: Nausea and vomiting Diabetes with possible gastroparesis Hyperglycemia Hypokalemia Elevated lactic acid Non-STEMI Coronary artery disease with previous stenting, x 12 per patient Mild ischemic cardiomyopathy Chronic congestive heart failure with mildly reduced EF, currently not in acute exacerbation Hypertension Hyperlipidemia History of DVT/PE on Eliquis PLAN: 2D echocardiogram showed preserved LV systolic function with no regional wall motion abnormality. Continue IV heparin Continue Brilinta. She is allergic to aspirin. She does not want to try Ranexa. She is allergic to coreg. She does not want to try Imdur. Will try Metorpolol XL 25 mf daily for antianginals. Patient is agreeble. Patient may be resumed on Eliquis tomorrow. Records from primary boilermaker central steam plant Dr. Shahid from [facility] reviewed. Patient has had multiple layers of stenting in RCA. Last PCI in December 2023 At this time patient does not have any indication for emergent cardiac catheterization. I had detailed discussion with the patient and patient's son Kalen. I have told them that if patient is feeling comfortable and is not having chest pain symptoms, she should ideally follow-up with Dr. Shahid for maintaining the continued of care as he has done all of her cardiac interventions in the past. If in case she deteriorates and have chest pressure- like symptoms, she is advised to come to the ER here. At this time her echo does not show any wall motion abnormalities. Gastroparesis should be ruled out as one of the etiologies of her nausea and vomiting which are recurrent. \\\\ Objective - Vital Signs Vital signs: Vital Signs Temp 97.9 F 05/02/24 22:02 Pulse 71 05/02/24 22:02 Resp 16 05/02/24 19:30 BP 146/87 05/02/24 22:02 Pulse Ox 98 05/02/24 22:02 FiO2 Intake & Output 05/02/24 05/02/24 05/03/24 06:59 18:59 06:59 Intake Total 687.76 Output Total 1600 Balance -1600 687.76 Weight 70.9 kg Intake: Intake, IV Titration 233.76 Amount Heparin Sod,Pork in 0.45% 233.76 NaCl 25,000 unit In 0.45 % NaCl 1 250ml.bag @ 12 UNITS/KG/HR 8.927 mls/hr IV .Q24H [facility] Rx#: [id number] Oral 454 Output: Urine 1600 Other: Voiding Method Bedside Commode Bedside Commode Toilet Bedside Commode # Voids 1 - Labs CBC & Chem 7: 05/01/24 06:35 05/02/24 07:08 Labs: Abnormal Lab Results - Last 24 Hours (Table) 05/02/24 05/02/24 05/02/24 Range/Units 06:00 07:08 07:08 APTT 42.6 H (22.0-30.0) sec Sodium 135 L (137-145) mmol/L BUN 6 L (7-17) mg/dL Creatinine 0.36 L (0.52-1.04) mg/dL Glucose 211 H (74-99) mg/dL POC Glucose (mg/dL) 196 H (70-110) mg/dL 05/02/24 05/02/24 05/02/24 Range/Units 11:34 16:31 20:10 APTT (22.0-30.0) sec Sodium (137-145) mmol/L BUN (7-17) mg/dL Creatinine (0.52-1.04) mg/dL Glucose (74-99) mg/dL POC Glucose (mg/dL) 233 H 196 H 268 H (70-110) mg/dL
--- NOTE | 2024-05-02 23:59 | P.PN ---
Subjective Progress Note Date: 05/02/24 HISTORY OF PRESENT ILLNESS: This is a 63-year-old female with a past medical history significant for co ronary artery disease with 12 stents (per patient), congestive heart failure, hypertension, hyperlipidemia, diabetes, DVT/PE, and suspected gastroparesis. Patient follows with a driver education instructor out of town, Dr Thad Shahid. We have been asked to see the patient in consultation for elevated troponins. Patient examined at the bedside in the emergency room. Patient son is present at the time of examination. Patient presented to the hospital for chief complaint of nausea and vomiting. Patient states that she gets these episodes about 3-4 times a year where she has severe nausea and vomiting that requires hospitalization. The patient denies having any chest pain or pressure. She denies any shortness of breath. Denies any dizziness or lightheadedness. The patient son states that she had a cardiac catheterization performed at [facility] at the end of March. Her son states that "she had two stents in one vessel with a space in between that was causing suspected microtra justine and her driver education instructor put in one long stent". He states this was a same day outpatient procedure and had been planned and was not due to patient having CP or NSTEMI. DIAGNOSTICS: - EKG reveals sinus mechanism with nonspecific ST-T wave changes. No signs of acute ischemia. - Laboratory data: WBC 11.6. Hemoglobin 16.1. Platelet count 365. Sodium 131. Potassium 3.2. BUN 23. Creatinine 0.56. Lactic acid 2.2. Troponin 3.760. 4.390. - Current home cardiac medications include Eliquis 5 mg twice a day, rosuvastatin 20 mg at night, amlodipine 5 mg daily, Brilinta 90 mg daily, lisinopril 40 mg daily - Most recent echocardiogram obtained in November 2021 revealed ejection fraction 45 to 50% with basal inferior lateral hypokinesis, trace aortic regurgitation, mild mitral regurgitation 04/30/2024 Patient examined this morning at the bedside. Patient reports her nausea and vomiting have improved. She is currently eating breakfast at the time of examination. Patient currently denies chest pain or pressure. She denies shortness of breath. She remains on IV heparin. Troponins resulted at 3.760. 4.390. 3.730. 2D echo remains pending. Also awaiting records from patient's primary driver education instructor. 05/01/2024 Seen and examined at bedside this a.m. No reported chest pain but continues to have on and off nausea and vomiting. 05/02/24 Seen and examined by this a.m. No reported chest pain. Continues to have nausea and vomiting. I feel that her symptoms of nausea could be related to her type 2 diabetes related gastroparesis. PHYSICAL EXAM: VITAL SIGNS: Reviewed. GENERAL: Well-developed in no acute distress. HEENT: Head is normocephalic. Pupils are equal, round. Sclerae anicteric. Mucous membranes of the mouth are moist. Neck supple. No JVD or thyromegaly LUNGS: Respirations even and unlabored. Lungs essentially clear to auscultation bilaterally. HEART: Regular rate and rhythm. S1 and S2 heard. Soft systolic murmur noted. ABDOMEN: Soft. Nondistended. Nontender. EXTREMITIES: Normal range of motion. No clubbing or cyanosis. Peripheral pulses intact. No lower extremity edema NEUROLOGIC: Awake and alert. Oriented x 3. ASSESSMENT: Nausea and vomiting Diabetes with possible gastroparesis Hyperglycemia Hypokalemia Elevated lactic acid Non-STEMI Coronary artery disease with previous stenting, x 12 per patient Mild ischemic cardiomyopathy Chronic congestive heart failure with mildly reduced EF, currently not in acute exacerbation Type 2 diabetes Hypertension Hyperlipidemia History of DVT/PE on Eliquis PLAN: 2D echocardiogram showed preserved LV systolic function with no regional wall motion abnormality. Continue Brilinta. She is allergic to aspirin. She does not want to try Ranexa. She is allergic to coreg. She does not want to try Imdur. Will try Metorpolol XL 25 mf daily for antianginals. Patient is agreeble. She is tolerated beta-blockers well. Discontinue heparin. Resume Eliquis Records from primary driver education instructor Dr. Shahid from [facility] reviewed. Patient has had multiple layers of stenting in RCA. Last PCI in December 2023 At this time patient does not have any indication for emergent cardiac catheterization. I had detailed discussion with the patient and patient's son Kalen. I have told them that if patient is feeling comfortable and is not having chest pain symptoms, she should ideally follow-up with Dr. Shahid for maintaining the continued of care as he has done all of her cardiac interventions in the past. If in case she deteriorates and have chest pressure- like symptoms, she is advised to come to the ER here. At this time her echo does not show any wall motion abnormalities. Gastroparesis should be ruled out as one of the etiologies of her nausea and vomiting which are recurrent. Patient is eager to go home and would like to proceed with following up with her primary driver education instructor Objective - Vital Signs Vital signs: Vital Signs Temp 97.9 F 05/02/24 22:02 Pulse 71 05/02/24 22:02 Resp 16 05/02/24 19:30 BP 146/87 05/02/24 22:02 Pulse Ox 98 05/02/24 22:02 FiO2 Intake & Output 05/02/24 05/02/24 05/03/24 06:59 18:59 06:59 Intake Total 687.76 Output Total 1600 Balance -1600 687.76 Weight 70.9 kg Intake: Intake, IV Titration 233.76 Amount Heparin Sod,Pork in 0.45% 233.76 NaCl 25,000 unit In 0.45 % NaCl 1 250ml.bag @ 12 UNITS/KG/HR 8.927 mls/hr IV .Q[facility]H [facility] Rx#: [id number] Oral 454 Output: Urine 1600 Other: Voiding Method Bedside Commode Bedside Commode Toilet Bedside Commode # Voids 1 - Labs CBC & Chem 7: 05/01/24 06:35 05/02/24 07:08 Labs: Abnormal Lab Results - Last 24 Hours (Table) 05/02/24 05/02/24 05/02/24 Range/Units 06:00 07:08 07:08 APTT 42.6 H (22.0-30.0) sec Sodium 135 L (137-145) mmol/L BUN 6 L (7-17) mg/dL Creatinine 0.36 L (0.52-1.04) mg/dL Glucose 211 H (74-99) mg/dL POC Glucose (mg/dL) 196 H (70-110) mg/dL 05/02/24 05/02/24 05/02/24 Range/Units 11:34 16:31 20:10 APTT (22.0-30.0) sec Sodium (137-145) mmol/L BUN (7-17) mg/dL Creatinine (0.52-1.04) mg/dL Glucose (74-99) mg/dL POC Glucose (mg/dL) 233 H 196 H 268 H (70-110) mg/dL
--- NOTE | 2024-05-03 04:25 | P.PN ---
Subjective Progress Note Date: 05/02/24 Patient pleasant 63-year-old female came in with complaints of nausea vomiting abdominal discomfort found to have mild elevated troponins which are highly elevated about 4.5 on admission presently 3.7. Patient had nonspecific ST-T wave changes in the EKG patient elevated white count. Patient was eval by cardiology patient had history of coronary disease congestive heart failure and gastroparesis history in the past. Patient on IV heparin at this time patient declined any procedures at this time because of which patient is being medically managed. 05/01/2024 Patient is evaluated in follow-up resting in bed she has no further complaints of nausea vomiting abdominal discomfort she is also not having any chest pain or shortness of breath. Reports were received for patient's main carrier associate with most recently undergoing a cardiac catheterization in December 31, 2023 patient underwent successful PCI of the mid right coronary artery to mid to distal right coronary artery and successful IVUS guided PCI to recurrent RCA in-stent restenosis due to stent deformity fracture and neointimal hyperplasia at that location. Patient is maintained on aspirin Brilinta. Eliquis remains on hold and cardiology is recommending to continue the IV heparin for 1 more night and patient will be considered for discharge home tomorrow to follow-up with her primary carrier associate. 05/02/2024 Patient is seen in follow-up today and remains on IV heparin with plans to transition to Eliquis today. Patient was evaluated by cardiology and recommending outpatient follow-up with her primary carrier associate to discuss outpatient testing and further intervention if needed. Patient would like to follow with her carrier associate on discharge. Patient reports she is having difficulty with feeling like food is getting stuck in her throat and GI has been consulted. Patient is afebrile with no reports of chest pain or shortness of breath. Oxygen saturations above 95% on room air. Review of Systems Constitutional: Denied any fatigue denied any fever. Cardio vascular: denied any chest pain, palpitations Gastrointestinal: denied any nausea, vomiting, diarrhea, reports having difficulty swallowing foods and feeling stuck Pulmonary: Denied any shortness of breath cough Neurologic denied any new focal deficits All inpatient medications were reviewed and appropriate changes in these medications as dictated in the interval history and assessment and plan. PHYSICAL EXAMINATION: GENERAL: The patient is alert and oriented x3, not in any acute distress. Well developed, well nourished. HEENT: Pupils are round and equally reacting to light. EOMI. No scleral icterus. No conjunctival pallor. Normocephalic, atraumatic. No pharyngeal erythema. No thyromegaly. CARDIOVASCULAR: S1 and S2 present. No murmurs, rubs, or gallops. PULMONARY: Chest is clear to auscultation, no wheezing or crackles. ABDOMEN: Soft, nontender, nondistended, normoactive bowel sounds. No palpable organomegaly. MUSCULOSKELETAL: No joint swelling or deformity. EXTREMITIES: No cyanosis, clubbing, or pedal edema. NEUROLOGICAL: Gross neurological examination did not reveal any focal deficits. SKIN: No rashes. Assessment and plan -Acute non-ST elevation myocardial infarction possibly type I patient is on IV heparin patient will be transition to Eliquis per cardiology today -Nausea vomiting can be inferior wall [place] patient will be continued on Protonix there may be a component of gastritis or gastroparesis, with some dysphagia, GI consulted -Hyperglycemia which improved at this time continue with present regimen -Hypokalemia being replaced -Lactic acidosis secondary to poor organ perfusion without any evidence of infection at this time, improved -Congestive heart failure chronic systolic dysfunction without any acute exa cerbation continue with present regimen -Hypertension -Hyperlipidemia -History of DVT and pulmonary embolism in the past for which patient is on Eliquis and will be resumed today DVT prophylaxis: On IV heparin transitioning to Eliquis Plan: GI has been consulted as patient continues to report difficulty with swallowing and food being stuck. Patient has undergone speech therapy evaluations prev iously. GI services available in the a.m. and consult was placed per cardiology IV heparin is being transition to Eliquis per cardiology and patient will follow-up with her primary carrier associate in the outpatient setting Possibly home in the next 24 hours The impression and plan of care has been dictated by Shelia Solares Nurse Practitioner as directed. Dr. Yosef MD I have performed a history and physical examination and medical decision making of this patient, discussed the same with the dictator, and agree with the dictators assessment and plan as written, documented as a scribe. Based on total visit time, I have performed more than 50% of this visit. Objective - Vital Signs Vital signs: Vital Signs Temp 98.2 F 05/02/24 09:20 Pulse 76 05/02/24 09:21 Resp 16 05/02/24 09:21 BP 136/78 05/02/24 09:20 Pulse Ox 98 05/02/24 09:20 FiO2 Intake & Output 05/01/24 05/02/24 05/02/24 18:59 06:59 18:59 Intake Total 945.718 233.76 Output Total 1600 Balance 945.718 -1600 233.76 Weight 71.169 kg 70.9 kg Intake: IV 602 Heparin Sod,Pork in 0.45% 77 NaCl 25,000 unit In 0.45 % NaCl 1 250ml.bag @ 12 UNITS/KG/HR 8.927 mls/hr IV .Q24H [facility] Rx#: [id number] Sodium Chloride 0.9% 1, 525 000 ml @ 75 mls/hr IV . [id number] [facility] Rx#:[id number] Intake, IV Titration 223.718 233.76 Amount Heparin Sod,Pork in 0.45% 223.718 233.76 NaCl 25,000 unit In 0.45 % NaCl 1 250ml.bag @ 12 UNITS/KG/HR 8.927 mls/hr IV .Q24H [facility] Rx#: [id number] Oral 120 Output: Urine 1600 Other: Voiding Method Bedside Commode Bedside Commode Bedside Commode # Voids 1 1 - Labs CBC & Chem 7: 05/01/24 06:35 05/02/24 07:08 Labs: Abnormal Lab Results - Last 24 Hours (Table) 05/01/24 05/01/24 05/01/24 Range/Units 11:45 14:48 15:06 APTT (22.0-30.0) sec Sodium (137-145) mmol/L BUN (7-17) mg/dL Creatinine (0.52-1.04) mg/dL Glucose (74-99) mg/dL POC Glucose (mg/dL) 163 H 46 L* 62 L (70-110) mg/dL 05/01/24 05/01/24 05/02/24 Range/Units 16:25 20:40 06:00 APTT (22.0-30.0) sec Sodium (137-145) mmol/L BUN (7-17) mg/dL Creatinine (0.52-1.04) mg/dL Glucose (74-99) mg/dL POC Glucose (mg/dL) 183 H 132 H 196 H (70-110) mg/dL 05/02/24 05/02/24 Range/Units 07:08 07:08 APTT 42.6 H (22.0-30.0) sec Sodium 135 L (137-145) mmol/L BUN 6 L (7-17) mg/dL Creatinine 0.36 L (0.52-1.04) mg/dL Glucose 211 H (74-99) mg/dL POC Glucose (mg/dL) (70-110) mg/dL
[2024-05-03 05:54] LABS: Glucose,Whole Blood 258 mg/dL (70-110)
[2024-05-03 07:22] LABS: Glucose,Whole Blood 81 mg/dL (70-110)
--- NOTE | 2024-05-03 11:36 | P.PN ---
Subjective Progress Note Date: 05/03/24 HPI: This lady has a history of hypertension diabetes with possibly some gastroparesis type symptoms. She has CAD with multiple stents details unavailable. Please review the old chart. She has had most of her interventional cardiology working [facility] in the [facility]. It was decided that we will pursue medical therapy and she can be discharged today. She is not having any chest pain she is comfortable resting. Her symptoms of nausea have also improved vital signs are stable. I am recommending that we increase activity and discharge her today to follow-up with her own blue print control clerk and same medications including dual antiplatelet therapy. No chest pain at the time of my evaluation she is resting comfortably.. PHYSICIAL EXAM:. Stable no JVD S1-S2 heard normally short systolic murmur noted lungs are clear abdomen is soft bowel sounds are present lower extremities reveal diminished pulses Central nervous system normal. IMPRESSION: 1. CAD with multivessel PCI details unavailable. 2. Insulin Requiring type 2 diabetes mellitus with some gastroparesis. 3. Hypertension. 4. Hypercholesterolemia. 5. History of DVT pulmonary embolism details unavailable. RECOMMENDATIONS: Same medical regimen increase activity and can be discharged and follow-up with her own blue print control clerk in 1 to 2 weeks. Explained and discussed with patient at length. Objective - Vital Signs Vital signs: Vital Signs Temp 97.2 F L 05/03/24 07:29 Pulse 78 05/03/24 07:29 Resp 16 05/03/24 07:29 BP 129/83 05/03/24 07:29 Pulse Ox 99 05/03/24 07:29 FiO2 Intake & Output 05/02/24 05/03/24 05/03/24 18:59 06:59 18:59 Intake Total 687.76 240 Balance 687.76 240 Intake: Intake, IV Titration 233.76 Amount Heparin Sod,Pork in 0.45% 233.76 NaCl 25,000 unit In 0.45 % NaCl 1 250ml.bag @ 12 UNITS/KG/HR 8.927 mls/hr IV .Q24H [facility] Rx#: [id number] Oral 454 240 Other: Voiding Method Bedside Commode Toilet Bedside Commode # Voids 1 - Labs CBC & Chem 7: 05/01/24 06:35 05/02/24 07:08 Labs: Abnormal Lab Results - Last 24 Hours (Table) 1005/02/24 05/02/24 Range/Units 11:34 16:31 20:10 POC Glucose (mg/dL) 233 H 196 H 268 H (70-110) mg/dL 05/03/24 Range/Units 05:50 POC Glucose (mg/dL) 258 H (70-110) mg/dL
[2024-05-03 13:03] LABS: Glucose,Whole Blood 228 mg/dL (70-110)
--- NOTE | 2024-05-03 14:39 | P.CONS ---
History of Present Illness - Reason for Consult Consult date: 05/03/24 Constant nausea and vomiting Requesting physician: Eric Gordillo - Chief Complaint Shortness of breath, nausea and vomiting - History of Present Illness This is a pleasant 63-year-old white female who presented to the emergency department with complaints of nausea and vomiting 4 days ago. Patient states that she has had episodes like this about once or twice a year for the last 3 years duration. States that she was told likely from gastroparesis. She has a history of insulin-dependent diabetes for 25 years, coronary artery disease, deep vein thrombosis, hypertension, myocardial infarction and pulmonary embolism. Patient was noted to have significantly elevated troponins. She follows with a die keeper out of town and had a cardiac catheterization done in March. On admission she was noted to be hyperglycemic with sugars in the 400s, elevated lactic acid and NSTEMI. States that antiemetics have not worked well for her other than her Reglan. States Zofran and Compazine do not work well. She has had no previous upper endoscopies. Nausea and vomiting has improved since she came into the hospital. Review of Systems REVIEW OF SYSTEMS: CARDIOPULMONARY: No chest pain or shortness of breath. Gastrointestinal: No abdominal pain. Nausea and vomiting, and improved. No hematemesis, coffee-ground emesis. No rectal bleeding, or melena. GENITOURINARY: No dysuria or hematuria. MUSCULOSKELETAL: Reports normal range of motion., Joint pain. SKIN: No rashes. No jaundice. ENDOCRINE: No chills, fevers. No excessive weight gain or loss. No polydipsia or polyuria. PSYCHIATRIC: Unremarkable. NEUROLOGY: No change in mental status. Denies dizziness, headache. ENT: Vision unremarkable. CONSTITUTIONAL: No recent weight loss. No fever, chills, night sweats. Past Medical History Past Medical History: Diabetes Mellitus, Deep Vein Thrombosis (DVT), Hypertension, Myocardial Infarction (ND), Pulmonary Embolus (PE) Additional Past Medical History / Comment(s): bilateral ankle fracture, right upper arm fracture History of Any Multi-Drug Resistant Organisms: None Reported Past Surgical History: Heart Catheterization With Stent, Orthopedic Surgery Additional Past Surgical History / Comment(s): Stent x10, fliter in leg, detached retina, left arm fracture Date of Last Stent Placement:: december 2017 Past Psychological History: No Psychological Hx Reported Smoking Status: Never smoker Past Alcohol Use History: None Reported Past Drug Use History: None Reported - Past Family History Family Family Medical History: No Reported History Medications and Allergies Home Medications Medication Instructions Recorded Confirmed Type Apixaban [Eliquis] 5 mg PO BID 12/07/21 04/29/24 History DULoxetine HCL [Cymbalta] 60 mg PO BID 12/07/21 04/29/24 History Ezetimibe [Zetia] 10 mg PO HS 12/07/21 04/29/24 History Insulin Aspart [NovoLOG Flexpen] 30 - 50 units SQ TID-W/MEALS 12/07/21 04/29/24 History Insulin Detemir [Levemir Flextouch 40 units SQ BID 12/07/21 04/29/24 History Pen] Linaclotide [Linzess] 290 mcg PO DAILY 12/07/21 04/29/24 History Potassium Chloride ER [K-Dur 20] 20 meq PO DAILY 12/07/21 04/29/24 History Rosuvastatin [Crestor] 20 mg PO HS 12/07/21 04/29/24 History Buprenorphine-Nalox 8-2 mg Tab 1 tab SUBLINGUAL BID 04/29/24 04/29/24 History [Suboxone 8-2 mg Tab] Levothyroxine Sodium [Synthroid] 100 mcg PO DAILY 04/29/24 04/29/24 History Metoclopramide [Reglan] 10 mg PO DAILY 04/29/24 04/29/24 History Pantoprazole Sodium [Protonix] 20 mg PO DAILY 04/29/24 04/29/24 History Ticagrelor [Brilinta] 90 mg PO DAILY 04/29/24 04/29/24 History amLODIPine [Norvasc] 5 mg PO DAILY 04/29/24 04/29/24 History lisinopriL 40 mg PO DAILY 04/29/24 04/29/24 History Allergies Allergy/AdvReac Type Severity Reaction Status Date / Time butorphanol [From Stadol] Allergy Unknown Verified 04/29/24 12:01 codeine Allergy Rash/Hives Verified 04/29/24 12:01 meperidine [From Demerol] Allergy Anaphylaxis Verified 04/29/24 12:01 NSAIDS (Non-Steroidal Allergy Anaphylaxis Verified 04/29/24 12:01 Anti-Inflamma carvedilol [From Coreg] AdvReac Migraines Verified 04/29/24 12:01 dapagliflozin [From Farxiga] AdvReac DKA Verified 04/29/24 12:01 Physical Exam Vitals: Vital Signs Temp Pulse Resp BP Pulse Ox 05/03/24 07:29 97.2 F L 78 16 129/83 99 05/03/24 01:40 98.3 F 78 16 131/70 95 05/02/24 22:02 97.9 F 71 146/87 98 05/02/24 19:30 98.2 F 75 16 117/78 99 05/02/24 15:08 98.5 F 73 16 126/64 98 05/02/24 14:00 72 16 05/02/24 11:21 97.8 F 72 16 146/76 98 05/02/24 09:21 76 16 05/02/24 09:20 98.2 F 76 16 136/78 98 Intake and Output 05/02/24 05/03/24 05/03/24 22:59 06:59 14:59 Other: Voiding Method Toilet Bedside Commode # Voids 1 General appearance: The patient is alert, oriented, appears in no acute distress. HET: Head is normocephalic and atraumatic. Conjunctiva pink. Sclera anicteric. Neck: Supple without lymphadenopathy. Trachea midline. Heart: Regular. Lungs: Equal expansion, normal respiratory effort. Abdomen: Soft, nontender, nondistended. Skin: No rashes. No jaundice. Extremities: Normal skin color and turgor. No pedal edema. Neurological: No focal deficits. Alert and oriented x3. Results CBC & Chem 7: 05/01/24 06:35 05/02/24 07:08 Labs: Abnormal Lab Results - Last 24 Hours (Table) 05/02/24 05/02/24 05/02/24 Range/Units 11:34 16:31 20:10 POC Glucose (mg/dL) 233 H 196 H 268 H (70-110) mg/dL 05/03/24 Range/Units 05:50 POC Glucose (mg/dL) 258 H (70-110) mg/dL Assessment and Plan (1) Nausea and vomiting Narrative/Plan: Intractable nausea and vomiting a 64-year-old 25-year IDD who came in with elevated blood sugars. Nausea and vomiting likely secondary to diabetic gastroparesis. No previous endoscopic evaluation but does get improvement of symptoms with use of Reglan. Uses Reglan at home as needed. States other antiemetics do not work as well. Denies any hematemesis or abdominal pain. Came in as NSTEMI with elevated troponins with recent cardiac catheterization and stent placement. Currently on Eliquis and Brilinta. No plans on endoscopic evaluation at this time. Recommend continuing Protonix 40 mg twice daily, Reglan as needed. Outpatient follow-up with gastroenterology. Current Visit: Yes Status: Acute Code(s): R11.2 - NAUSEA WITH VOMITING, UNSPECIFIED SNOMED Code(s): 56075975 (2) Coronary artery disease Current Visit: Yes Status: Acute Code(s): I25.10 - ATHSCL HEART DISEASE OF [place] CORONARY ARTERY W/O ANG PCTRS SNOMED Code(s): 19123387 (3) History of pulmonary embolism Current Visit: Yes Status: Acute Code(s): Z86.711 - PERSONAL HISTORY OF PU LMONARY EMBOLISM SNOMED Code(s): 427569731 (4) History of DVT (deep vein thrombosis) Current Visit: Yes Status: Acute Code(s): Z86.718 - PERSONAL HISTORY OF OTHER VENOUS THROMBOSIS AND EMBOLISM SNOMED Code(s): 822537097 (5) NSTEMI (non-ST elevated myocardial infarction) Current Visit: Yes Status: Acute Code(s): I21.4 - NON-ST ELEVATION (NSTEMI) MYOCARDIAL INFARCTION SNOMED Code(s): 06042123 (6) IDDM (insulin dependent diabetes mellitus) Current Visit: Yes Status: Acute Code(s): ABV9079 - SNOMED Code(s): 74636181 (7) Hyperglycemia Current Visit: Yes Status: Acute Code(s): R73.9 - HYPERGLYCEMIA, UNSPECIFIED SNOMED Code(s): 78884171 Plan: 1. Continue symptomatic and supportive care 2. Continue Reglan as ordered 3. Continue Protonix 40 mg twice daily in outpatient setting 4. Continue anticoagulation as ordered 5. Discussed with patient eat small frequent meals 6. Strict glycemic control 7. Follow-up outpatient with gastroenterology. No plans for endoscopic evaluation at this time Thank you for this consultation, patient is cleared from gastroenterology for discharge. Dr. Stephanie Colon I agree with the dictator's note, documented as a scribe by Mandy Roman.
[2024-05-03 14:49] VITALS: BP 99/68; PULSE 66; RESP 18; TEMP 98.2
[2024-05-03 17:26] LABS: Glucose,Whole Blood 263 mg/dL (70-110)
== END 2024-05-03 18:05 | disposition home or self-care (01) | DRG 73 ==
LOC: EC 11:07 → 3SCARD 14:33 → 6NMEDSUR 05-02 22:04
PROVIDERS: ADMIT Family Medicine; ATTEND Family Medicine
DX: E11.43 Type 2 diabetes mellitus with diabetic autonomic (poly)neuropathy (principal); I21.4 Non-ST elevation (NSTEMI) myocardial infarction; E87.20 Acidosis, unspecified; I50.22 Chronic systolic (congestive) heart failure; R13.10 Dysphagia, unspecified; I11.0 Hypertensive heart disease with heart failure; E11.65 Type 2 diabetes mellitus with hyperglycemia; Z95.820 Peripheral vascular angioplasty status with implants and grafts; Z79.4 Long term (current) use of insulin; I25.10 Atherosclerotic heart disease of native coronary artery without angina pectoris; K31.84 Gastroparesis; E78.00 Pure hypercholesterolemia, unspecified; E87.6 Hypokalemia; I25.5 Ischemic cardiomyopathy; Z86.711 Personal history of pulmonary embolism; Z86.718 Personal history of other venous thrombosis and embolism; Z79.01 Long term (current) use of anticoagulants; Z79.890 Hormone replacement therapy; Z79.899 Other long term (current) drug therapy; Z79.02 Long term (current) use of antithrombotics/antiplatelets; Z79.891 Long term (current) use of opiate analgesic; I25.2 Old myocardial infarction; Z95.5 Presence of coronary angioplasty implant and graft; Z88.6 Allergy status to analgesic agent
CPT/HCPCS: 36415; 71046; 71250; 74150; 80048; 80053; 81001; 82009; 82150; 83036; 83605; 83690; 83735; 84100; 84484; 85025; 85610; 85730; 87086; 87636; 93005; 93306; 96365; 96375; 99291

== ENCOUNTER 2024-05-10 16:12 | Inpatient (IN) | payer MEDICARE ==
[2024-05-10 17:14] LABS: Basophils % (A) 0 %; Eosinophils % (A) 1 %; HCT 46.8 % (34.0-46.0); Lymphocytes # (A) 1.3 k/uL (1.0-4.8); Lymphocytes % (A) 18 %; MCH 28.8 pg (25.0-35.0); MCHC 32.1 g/dL (31.0-37.0); MCV 89.8 fL (80.0-100.0); Mean Platelet Volume 6.6; Monocytes # (A) 0.5 k/uL (0-1.0); Monocytes % (A) 7 %; Neutrophils # (A) 5.5 k/uL (1.3-7.7); Neutrophils % (A) 73 %; Platelet Count 268 k/uL (150-450); RBC 5.21 m/uL (3.80-5.40); RDW 13.1 % (11.5-15.5); WBC 7.6 k/uL (3.8-10.6)
[2024-05-10] MEDS: METOCLOPRAMIDE 5 MG/ML 2 ML VIAL IVP STA (17:17)
[2024-05-10] MEDS: SODIUM CHLORIDE 0.9% 1,000 ML IV STA (17:18)
--- NOTE | 2024-05-10 17:26 | ED ---
Chest Pain HPI - General Chief Complaint: Chest Pain Stated Complaint: N/V Chest Pressure Time Seen by Provider: 05/10/24 16:20 Source: EMS, RN notes reviewed, old records reviewed Mode of arrival: EMS Limitations: no limitations - History of Present Illness Initial Comments: This is a 63-year-old female to the ER for evaluation of nausea vomiting and c hest pain. Patient unable to take medications not taking any medications in 3 days for nausea vomiting, not taking Eliquis or blood pressure medications blood pressure is high. Patient has recent hospital admission for significant nausea vomiting and chest pain and elevated troponin non-STEMI MD Complaint: chest pain, other (Nausea and vomiting) -: days(s) (3) Pain Location: substernal, left chest, epigastric Severity: moderate Severity scale (1-10): 7 Quality: aching, heaviness Consistency: constant Improves With: nothing Worsens With: nothing Context: recent illness Anginal Symptoms: sense of impending doom Other Symptoms: palpitations Treatments Prior to Arrival: none - Related Data Home Medications Medication Instructions Recorded Confirmed Apixaban [Eliquis] 5 mg PO BID 12/07/21 05/11/24 DULoxetine HCL [Cymbalta] 60 mg PO BID 12/07/21 05/11/24 Ezetimibe [Zetia] 10 mg PO HS 12/07/21 05/11/24 Insulin Aspart [NovoLOG Flexpen] 30 - 50 units SQ TID-W/MEALS 12/07/21 05/11/24 Linaclotide [Linzess] 290 mcg PO DAILY 12/07/21 05/11/24 Potassium Chloride ER [K-Dur 20] 20 meq PO DAILY 12/07/21 05/11/24 Rosuvastatin [Crestor] 20 mg PO HS 12/07/21 05/11/24 Buprenorphine-Nalox 8-2 mg Tab 1 tab SUBLINGUAL BID 04/29/24 05/11/24 [Suboxone 8-2 mg Tab] Levothyroxine Sodium [Synthroid] 100 mcg PO DAILY 04/29/24 05/11/24 Ticagrelor [Brilinta] 90 mg PO DAILY 04/29/24 05/11/24 amLODIPine [Norvasc] 5 mg PO DAILY 04/29/24 05/11/24 lisinopriL 40 mg PO DAILY 04/29/24 05/11/24 Insulin Detemir [Levemir Flexpen] 40 units SQ BID 05/11/24 05/11/24 Previous Rx's Medication Instructions Recorded Metoprolol Succinate (ER) [Toprol 25 mg PO DAILY 30 Days #30 tab 05/03/24 XL] Zolpidem [Ambien] 5 mg PO HS PRN 3 Days #3 tab 05/03/24 Acetaminophen Tab [Tylenol] 650 mg PO Q6HR PRN tab 05/18/24 Benzocaine/Menthol Lozeng [Cepacol 1 each MUCOUS MEM Q4HR PRN lozenge 05/18/24 lozenge] Ipratropium-Albuterol Nebulize 3 ml INHALATION RT-QID 30 Days 05/18/24 [Duoneb 0.5 mg-3 mg/3 ml Soln] #120 each Metoclopramide [Reglan] 10 mg PO AC-TID 30 Days #90 tab 05/18/24 Nitroglycerin Sl Tabs [Nitrostat] 0.4 mg SUBLINGUAL Q5M PRN 180 Days 05/18/24 #100 tab Pantoprazole [Protonix] 40 mg PO DAILY@0730 90 Days #90 tab 05/18/24 Ranolazine [Ranexa] 500 mg PO Q12HR 30 Days #60 tab 05/18/24 Allergies Allergy/AdvReac Type Severity Reaction Status Date / Time butorphanol [From Stadol] Allergy Unknown Verified 05/11/24 09:25 codeine Allergy Rash/Hives Verified 05/11/24 09:25 meperidine [From Demerol] Allergy Anaphylaxis Verified 05/11/24 09:25 NSAIDS (Non-Steroidal Allergy Anaphylaxis Verified 05/11/24 09:25 Anti-Inflamma carvedilol [From Coreg] AdvReac Migraines Verified 05/11/24 09:25 dapagliflozin [From Farxiga] AdvReac DKA Verified 05/11/24 09:25 Review of Systems ROS Statement: Those systems with pertinent positive or pertinent negative responses have been documented in the HPI. ROS Other: All systems not noted in ROS Statement are negative. EKG Findings - EKG Comments: EKG Findings:: EKG is sinus tachycardia 105 WA 160 QRS 102 QTc 419 - EKG Results: EKG: interpreted by IN[facility] Past Medical History Past Medical History: Diabetes Mellitus, Deep Vein Thrombosis (DVT), Hypertension, Myocardial Infarction (PA), Pulmonary Embolus (PE) Additional Past Medical History / Comment(s): bilateral ankle fracture, right upper arm fracture History of Any Multi-Drug Resistant Organisms: None Reported Past Surgical History: Heart Catheterization With Stent, Orthopedic Surgery Additional Past Surgical History / Comment(s): Stent x10, fliter in leg, detached retina, left arm fracture Date of Last Stent Placement:: december 2017 Past Psychological History: No Psychological Hx Reported Smoking Status: Never smoker Past Alcohol Use History: None Reported Past Drug Use History: None Reported - Past Family History Family Family Medical History: No Reported History Father Family Medical History: Diabetes Mellitus, Myocardial Infarction (PA) Mother Family Medical History: Congestive Heart Failure (CHF), Diabetes Mellitus Sister(s) Family Medical History: Diabetes Mellitus, Myocardial Infarction (PA) Additional Family Medical History / Comment(s): at age 67 Brother(s) Family Medical History: Myocardial Infarction (PA) Additional Family Medical History / Comment(s): at age 59 General Exam Limitations: no limitations General appearance: anxious, in distress Head exam: Present: atraumatic, normocephalic, normal inspection Eye exam: Present: normal appearance, PERRL, EOMI. Absent: scleral icterus, conjunctival injection, periorbital swelling ENT exam: Present: normal exam, mucous membranes moist Neck exam: Present: normal inspection. Absent: tenderness, meningismus, lymphadenopathy Respiratory exam: Present: normal lung sounds bilaterally. Absent: respiratory distress, wheezes, rales, rhonchi, stridor Cardiovascular Exam: Present: tachycardia, irregular rhythm, normal heart sounds. Absent: systolic murmur, diastolic murmur, rubs, gallop, clicks GI/Abdominal exam: Present: soft, normal bowel sounds. Absent: distended, tenderness, guarding, rebound, rigid Extremities exam: Present: normal inspection, full ROM, normal capillary refill. Absent: tenderness, pedal edema, joint swelling, calf tenderness Back exam: Present: normal inspection Neurological exam: Present: alert, oriented X3, CN II-XII intact Psychiatric exam: Present: normal affect, normal mood Skin exam: Present: warm, dry, intact, normal color. Absent: rash Course Vital Signs 05/10/24 05/10/24 05/10/24 16:15 16:25 17:30 Temperature 98.5 F Pulse Rate 110 H 105 H Pulse Rate [ 110 H Systems Management Consultant ] Respiratory 20 18 Rate Blood Pressure 196/112 184/98 Blood Pressure [Left Arm] O2 Sat by Pulse 100 98 Oximetry 05/10/24 05/10/24 05/10/24 18:49 21:38 22:47 Temperature 99.0 F Pulse Rate 102 H 88 103 H Pulse Rate [ Systems Management Consultant ] Respiratory 16 16 16 Rate Blood Pressure 165/93 134/69 134/68 Blood Pressure [Left Arm] O2 Sat by Pulse 97 97 Oximetry 05/10/24 23:20 Temperature 98.7 F Pulse Rate Pulse Rate [ 110 H Systems Management Consultant ] Respiratory 18 Rate Blood Pressure Blood Pressure 125/87 [Left Arm] O2 Sat by Pulse 97 Oximetry - Reevaluation(s) Reevaluation #1: 05/10/24 18:35 Medical records reviewed Reevaluation #2: 05/10/24 18:35 Patient remains with nausea and vomiting and chest pain Reevaluation #3: 05/10/24 18:35 Patient informed of results questions answered Reevaluation #4: Was pt. sent in by a medical professional or institution (, PA, POULTRY PROCESSING SUPERVISOR, urgent care, hospital, or skilled nursing...) When possible be specific @ -no Did you speak to anyone other than the patient for history (EMS, parent, family, police, friend...)? What history was obtained from this source @ -no Did you review nursing and triage notes (agree or disagree)? Why? @ -agree Are old charts reviewed (outside hosp., previous admission, EMS record, old EKG, old radiological studies, urgent care reports/EKG's, skilled nursing records)? Report findings @ -yes Differential Diagnosis (chest pain, altered mental status, abdominal pain women, abdominal pain men, vaginal bleeding, weakness, fever, dyspnea, syncope, headache, dizziness, GI bleed, back pain, seizure, CVA, palpatations, mental health, musculoskeletal)? @ -prior EKG interpreted by me (3pts min.). @ -yes X-rays interpreted by me (1pt min.). @ -yes negative for acute disease CT interpreted by me (1pt min.). @ -no U/S interpreted by me (1pt. min.). @ -no What testing was considered but not performed or refused? (CT, X-rays, U/S, labs)? Why? @ -none What meds were considered but not given or refused? Why? @ -none Did you discuss the management of the patient with other professionals (professionals i.e. , PA, POULTRY PROCESSING SUPERVISOR, lab, RT, psych nurse, social work assistant, shot polisher and inspector, teacher, technology officer, manager case management)? Give summary @ -no Was smoking cessation discussed for >3mins.? @ -no Was critical care preformed (if so, how long)? @ -yes31 Were there social determinants of health that impacted care today? How? (H omelessness, low income, unemployed, alcoholism, drug addiction, transportation, low edu. Level, literacy, decrease access to med. care, [facility], rehab)? @ -none Was there de-escalation of care discussed even if they declined (Discuss DNR or withdrawal of care, Hospice)? DNR status @ -no What co-morbidities impacted this encounter? (DM, HTN, Smoking, COPD, CAD, Cancer, CVA, ARF, Chemo, Hep., AIDS, mental health diagnosis, sleep apnea, morbid obesity)? @ -none Was patient admitted / discharged? Hospital course, mention meds given and route, prescriptions, significant lab abnormalities, going to OR and other pertinent info. @ - 63 female to ER for evaluation patient has persistent chest pain nausea vomiting here in the ER will admit for cardiac observation with strong history of CAD Admitted Undiagnosed new problem with uncertain prognosis? @ -no Drug Therapy requiring intensive monitoring for toxicity (Heparin, Nitro, Insulin, Cardizem)? @ -no Were any procedures done? @ -no Diagnosis/symptom? @ -CAD with chest pain Acute, or Chronic, or Acute on Chronic? @ -Acute Uncomplicated (without systemic symptoms) or Complicated (systemic symptoms)? @ -Complicated Side effects of treatment? @ -no Exacerbation, Progression, or Severe Exacerbation? @ -exacerbation Poses a threat to life or bodily function? How? (Chest pain, USA, PA, pneumonia, PE, COPD, DKA, ARF, appy, cholecystitis, CVA, Diverticulitis, Homicidal, Suicidal, threat to staff... and all critical care pts) @ -yes with chest pain Reevaluation #5: Differential Chest Pain: Stable Angina, Unstable Angina, STEMI, NSTEMI Aortic Dissection, Pneumothorax, Musculoskeletal, Esophageal Spasm GERD, Cholecystitis, Pancreatitis, Zoster, this is not meant to be an all-inclusive list. - Consultations Consultation #1: Spoke with EM who agrees to admit this patient Chest Pain MDM - MDM 63 female to ER for evaluation patient has persistent chest pain nausea vomiting here in the ER will admit for cardiac observation with strong history of CAD Disposition Clinical Impression: Chest pain, Nausea and vomiting, Coronary artery disease, Weakness, Anxiety Disposition: ADMITTED IP TO THIS HOSP Condition: Serious Is patient prescribed a controlled substance at d/c from ED?: No Time of Disposition: 18:30
[2024-05-10 17:27] LABS: ALT 22 U/L (4-34); AST 20 U/L (14-36); African American GFR (CKD) >90 (>60 ml/min/1.73 sqM); Albumin 4.6 g/dL (3.5-5.0); Alkaline Phosphatase 128 U/L (38-126); Anion Gap 11 mmol/L; Blood Urea Nitrogen 14 mg/dL (7-17); Calcium 9.3 mg/dL (8.4-10.2); Carbon Dioxide 24 mmol/L (22-30); Chloride 103 mmol/L (98-107); Glucose 244 mg/dL (74-99); Magnesium 1.7 mg/dL (1.6-2.3); Non-African American GFR(CKD) >90 (>60 ml/min/1.73 sqM); Phosphorus 2.7 mg/dL (2.5-4.5); Potassium 3.5 mmol/L (3.5-5.1); Sodium 138 mmol/L (137-145); Total Bilirubin 1.2 mg/dL (0.2-1.3); Total Protein 7.4 g/dL (6.3-8.2)
[2024-05-10 17:28] LABS: Partial Thromboplastin Time 23.2 sec (22.0-30.0); Prothrombin Time 11.1 sec (10.0-12.5)
[2024-05-10 18:10] LABS: Lipase 25 U/L (23-300)
[2024-05-10 18:20] LABS: NT-Pro-B-Type Natriuretic Pept 914 pg/mL
[2024-05-10] MEDS ORDERED: NALOXONE 0.4 MG/ML 1 ML VIAL IV PRN (18:27)
[2024-05-10] MEDS ORDERED: ONDANSETRON 4 MG/2 ML VIAL IVP PRN (18:32)
[2024-05-10] MEDS ORDERED: MORPHINE SULFATE 4 MG/ML SYRINGE IV PRN (18:32)
[2024-05-10] MEDS: SODIUM CHLORIDE 0.9% 1,000 ML IV SCH (18:57)
[2024-05-10] MEDS: LORazepam 2 MG/ML INJ IV PRN (19:25)
--- NOTE | 2024-05-10 19:32 | XR ---
EXAMINATION TYPE: XR chest 1V portable DATE OF EXAM: 05/10/2024 6:50 PM COMPARISON: Chest radiographs from 04/29/2024. CLINICAL INDICATION: Female, 63 years old with history of chest pain. TECHNIQUE: XR chest 1V portable Frontal view of the chest. FINDINGS: Lungs/Pleura: There is flattening of the diaphragm with increased lucency of the lungs. No evidence o f pneumothorax, pleural effusion or focal consolidation. Pulmonary vascularity: Unremarkable. Heart/mediastinum: Cardiomediastinal silhouette is unremarkable. Musculoskeletal: No acute osseous pathology. Moderate degeneration changes of the right shoulder with joint space narrowing osteophyte formation.. IMPRESSION: 1. No acute cardiopulmonary disease process. 2. COPD changes. [facility], , 05/10/2024 7:30 PM
[2024-05-10] MEDS ORDERED: diphenhydrAMINE 50 MG/ML 1 ML VIAL IVP PRN (20:05)
[2024-05-10] MEDS: LABETALOL 5 MG/ML VIAL MDV IVP STA (21:57)
[2024-05-10] MEDS: diphenhydrAMINE 50 MG/ML 1 ML VIAL IVP STA (21:58)
[2024-05-11 00:55] LABS: Glucose,Whole Blood 294 mg/dL (70-110)
[2024-05-11] MEDS: METOCLOPRAMIDE 5 MG/ML 2 ML VIAL IVP SCH (01:06)
[2024-05-11] MEDS ORDERED: DEXTROSE 50% SYRINGE 50 ML IVP PRN ×2 (01:17)
[2024-05-11] MEDS: INSULIN ASPART (NovoLOG) 100 UNIT/ML VIAL SQ ONE (01:52)
[2024-05-11 05:53] LABS: Glucose,Whole Blood 176 mg/dL (70-110)
[2024-05-11] MEDS: INSULIN ASPART (NovoLOG) 100 UNIT/ML VIAL SQ SCH (06:42)
--- NOTE | 2024-05-11 09:39 | P.CRDCN ---
History of Present Illness Consult date: 05/11/24 Consult reason: chest pain History of present illness: This is a 63-year-old female patient of associate relations specialist Dr. Thad Shahid with past medical history of coronary artery disease with 12 stents (per patient), congestive heart failure, hypertension, hyperlipidemia, diabetes, DVT/PE, and suspected gastroparesis. We have been asked to evaluate the patient for chest pain. Patient had a recent hospitalization on 1016. Patient states that she is here for the exact same symptoms. She states that she did not realize she was going to run out of Reglan which happened on Friday. She has not been able to to obtain more Reglan over the weekend. She started having nausea and vomiting which she has approximately 3-4 episodes per year which requires hospitalization. She states she also had some chest pressure but does not have any now. Patient states that she feels much better from yesterday. Discussed elevated troponin with recommendations for cardiac catheterization but patient declined and would rather follow-up with her own associate relations specialist for any procedures. Patient presented with a blood pressure 196/112 status post 1 dose of labetalol IV. Blood pressure is now 130/62, heart rate 83, pulse ox 98% on room air. Patient has not been taking her home medications since last . EKG: Sinus rhythm with no acute ST changes chronic nonspecific ST-T wave changes, 105 bpm Chest x-ray: No acute findings. COPD Laboratory studies: Troponins 0.012, 0.014, 0.04. proBNP 914. Potassium 3.5, creatinine 0.44. D-dimer 0.3. Home cardiac medications: Echocardiogram performed on 04/30/2024 revealed EF 55%, increased left ventricul ar wall thickness, mild MR, mild AR, mild TR, RVSP 19. Review Of Systems: At the time of my exam: CONSTITUTIONAL: Denies fever or chills. HEENT: Denies blurred vision, vision changes, or eye pain. Denies hemoptysis CARDIOVASCULAR: Denies chest pain. Denies orthopnea. Denies PND. Denies palpitations RESPIRATORY: Denies shortness of breath. GASTROINTESTINAL: Denies abdominal pain. Denies nausea or vomiting. HEMATOLOGIC: Denies bleeding disorders. GENITOURINARY: Denies any blood in urine. SKIN: Denies puritis. Denies rash. Physical examination: Gen: This is a 63-year-old female in no acute distress VS: reviewed HEENT: Head is atraumatic, normocephalic. Pupils equal, round. Sclerae is anic teric. NECK: Supple. No JVD. LUNGS: Clear to auscultation. No wheezes or rhonchi. No intercostal retractions. HEART: Regular rate and rhythm. No murmur. ABDOMEN: Soft No tenderness. EXTREMITIES: No pedal edema. No calf tenderness. NEUROLOGICAL: Patient is awake, alert and oriented x3. Assessment: NSTEMI Uncontrolled hypertension Diabetes with suspected gastroparesis Coronary artery disease with previous stenting x 12 per patient Mild ischemic cardiomyopathy Diabetes mellitus type 2 Hypertension Hyperlipidemia History of DVT and PE on Eliquis Plan: Resume patient's home cardiac medications Add Imdur 30 mg daily Obtain records from patient's associate relations specialist regarding the cardiac cathete rization/PCI that was done on April 09 No need to repeat echocardiogram as this was done 04/30 Continue to monitor patient for another 24 hours and anticipate discharge home tomorrow Patient offered cardiac catheterization and she declined request to follow-up with her primary associate relations specialist Further recommendations to follow based upon clinical course Thank you kindly for this consultation. Nurse practitioner note has been reviewed, I agree with documented findings and plan of care. Patient was seen and examined. Past Medical History Past Medical History: Diabetes Mellitus, Deep Vein Thrombosis (DVT), Hypertension, Pulmonary Embolus (PE) Additional Past Medical History / Comment(s): bilateral ankle fracture, right upper arm fracture History of Any Multi-Drug Resistant Organisms: None Reported Past Surgical History: Heart Catheterization With Stent, Orthopedic Surgery Additional Past Surgical History / Comment(s): Stent x12, fliter in leg, det ached retina, left arm fracture Date of Last Stent Placement:: April 09, 2024 Past Psychological History: No Psychological Hx Reported Smoking Status: Never smoker Past Alcohol Use History: None Reported Past Drug Use History: None Reported - Past Family History Father Family Medical History: Diabetes Mellitus, Myocardial Infarction (AR) Mother Family Medical History: Congestive Heart Failure (CHF), Diabetes Mellitus Sister(s) Family Medical History: Diabetes Mellitus, Myocardial Infarction (AR) Additional Family Medical History / Comment(s): at age 67 Brother(s) Family Medical History: Myocardial Infarction (AR) Additional Family Medical History / Comment(s): at age 59 Family Family Medical History: No Reported History Medications and Allergies Home Medications Medication Instructions Recorded Confirmed Type Apixaban [Eliquis] 5 mg PO BID 12/07/21 05/11/24 History DULoxetine HCL [Cymbalta] 60 mg PO BID 12/07/21 05/11/24 History Ezetimibe [Zetia] 10 mg PO HS 12/07/21 05/11/24 History Insulin Aspart [NovoLOG Flexpen] 30 - 50 units SQ TID-W/MEALS 12/07/21 05/11/24 History Linaclotide [Linzess] 290 mcg PO DAILY 12/07/21 05/11/24 History Potassium Chloride ER [K-Dur 20] 20 meq PO DAILY 12/07/21 05/11/24 History Rosuvastatin [Crestor] 20 mg PO HS 12/07/21 05/11/24 History Buprenorphine-Nalox 8-2 mg Tab 1 tab SUBLINGUAL BID 04/29/24 05/11/24 History [Suboxone 8-2 mg Tab] Levothyroxine Sodium [Synthroid] 100 mcg PO DAILY 04/29/24 05/11/24 History Metoclopramide [Reglan] 10 mg PO DAILY 04/29/24 05/11/24 History Pantoprazole Sodium [Protonix] 20 mg PO DAILY 04/29/24 05/11/24 History Ticagrelor [Brilinta] 90 mg PO DAILY 04/29/24 05/11/24 History amLODIPine [Norvasc] 5 mg PO DAILY 04/29/24 05/11/24 History lisinopriL 40 mg PO DAILY 04/29/24 05/11/24 History Metoprolol Succinate (ER) [Toprol 25 mg PO DAILY 30 Days #30 tab 05/03/24 05/11/24 Rx XL] Zolpidem [Ambien] 5 mg PO HS PRN 3 Days #3 tab 05/03/24 05/11/24 Rx Insulin Detemir [Levemir Flexpen] 40 units SQ BID 05/11/24 05/11/24 History Allergies Allergy/AdvReac Type Severity Reaction Status Date / Time butorphanol [From Stadol] Allergy Unknown Verified 05/11/24 09:25 codeine Allergy Rash/Hives Verified 05/11/24 09:25 meperidine [From Demerol] Allergy Anaphylaxis Verified 05/11/24 09:25 NSAIDS (Non-Steroidal Allergy Anaphylaxis Verified 05/11/24 09:25 Anti-Inflamma carvedilol [From Coreg] AdvReac Migraines Verified 05/11/24 09:25 dapagliflozin [From Farxiga] AdvReac DKA Verified 05/11/24 09:25 Physical Exam Vitals: Vital Signs Temp Pulse Pulse Resp BP BP Pulse Ox 05/11/24 03:25 98.6 F 91 17 136/77 96 05/10/24 23:20 98.7 F 110 H 18 125/87 97 05/10/24 22:47 103 H 16 134/68 97 05/10/24 21:38 88 16 134/69 05/10/24 18:49 99.0 F 102 H 16 165/93 97 05/10/24 17:30 105 H 18 184/98 98 05/10/24 16:25 110 H 05/10/24 16:15 98.5 F 110 H 20 196/112 100 Intake and Output 05/10/24 05/11/24 05/11/24 22:59 06:59 14:59 Other: # Voids 1 Weight 70.76 kg 70.76 kg Results 05/10/24 17:03 05/10/24 17:13 Cardiac Enzymes 05/10/24 05/10/24 05/10/24 Range/Units 17:13 17:13 21:25 AST 20 (14-36) U/L Troponin I <0.012 0.014 (0.000-0.034) ng/mL 05/11/24 Range/Units 03:42 AST (14-36) U/L Troponin I 0.040 H* (0.000-0.034) ng/mL Coagulation 05/10/24 Range/Units 17:13 PT 11.1 (10.0-12.5) sec APTT 23.2 (22.0-30.0) sec CBC 05/10/24 Range/Units 17:03 WBC 7.6 (3.8-10.6) k/uL RBC 5.21 (3.80-5.40) m/uL Hgb 15.0 (11.4-16.0) gm/dL Hct 46.8 H (34.0-46.0) % Plt Count 268 (150-450) k/uL Comprehensive Metabolic Panel 05/10/24 Range/Units 17:13 Sodium 138 (137-145) mmol/L Potassium 3.5 (3.5-5.1) mmol/L Chloride 103 (98-107) mmol/L Carbon Dioxide 24 (22-30) mmol/L BUN 14 (7-17) mg/dL Creatinine 0.44 L (0.52-1.04) mg/dL Glucose 244 H (74-99) mg/dL Calcium 9.3 (8.4-10.2) mg/dL AST 20 (14-36) U/L ALT 22 (4-34) U/L Alkaline Phosphatase 128 H (38-126) U/L Total Protein 7.4 (6.3-8.2) g/dL Albumin 4.6 (3.5-5.0) g/dL Current Medications Generic Name Dose Route Start Last Admin Trade Name Freq PRN Reason Stop Dose Admin Dextrose/Water 25 ml 05/11/24 01:17 Dextrose 50% Syringe 50 Ml IVP PER PROTOCOL PRN Hypoglycemia Protocol Dextrose/Water 50 ml 05/11/24 01:17 Dextrose 50% Syringe 50 Ml IVP PER PROTOCOL PRN Hypoglycemia Protocol Diphenhydramine HCl 25 mg 05/10/24 20:05 Diphenhydramine 50 Mg/Ml 1 Ml Vial IVP Q6HR PRN Allergy Symptoms Sodium Chloride 1,000 mls @ 75 mls/hr 05/10/24 18:45 05/10/24 18:57 Saline 0.9% IV 75 mls/hr .[id number] SOLOMON Administration Insulin Aspart 0 unit 05/11/24 07:30 05/11/24 06:42 Insulin Aspart (Novolog) 100 Unit/Ml Vial SQ 3 unit ACHS SOLOMON Administration Protocol Lorazepam 1 mg 05/10/24 18:34 05/10/24 19:25 Lorazepam 2 Mg/Ml Inj IV 1 mg Q6HR PRN Administration Anxiety Metoclopramide HCl 10 mg 05/11/24 00:00 05/11/24 06:44 Metoclopramide 5 Mg/Ml 2 Ml Vial IVP 10 mg Q6HR SOLOMON Administration Morphine Sulfate 4 mg 05/10/24 18:32 Morphine Sulfate 4 Mg/Ml Syringe IV Q4HR PRN Severe Pain (Scale 7 to 10) Naloxone HCl 0.2 mg 05/10/24 18:27 Naloxone 0.4 Mg/Ml 1 Ml Vial IV Q2M PRN Opioid Reversal Ondansetron HCl 4 mg 05/10/24 18:32 Ondansetron 4 Mg/2 Ml Vial IVP Q8HR PRN Nausea And Vomiting Intake and Output 05/10/24 05/11/24 05/11/24 22:59 06:59 14:59 Other: # Voids 1 Weight 70.76 kg 70.76 kg 05/10/24 17:03 05/10/24 17:13
--- NOTE | 2024-05-11 10:28 | P.HPIM ---
History of Present Illness H&P Date: 05/11/24 Chief Complaint: Nausea vomiting and chest pain for 3 days Patient seen and evaluated examined while covering for Dr. Brooks Saldaña, patient admitted to hospital with 3-day history of nausea and vomiting patient has been not taking her blood pressure medicine as well as oral anticoagulant admitted into hospital she has noted to have elevated troponin cardiology is on consult in addition has problems with burning urination and dysuria. Initial labs were significant for within normal limits CBC and chemistry D-dimer is 0.3, glucose however is 244 troponin 4 and 7 seconds within normal limit third noted to be high of 0.04 BNP 914 cardiovascular services on consult. Chest x-ray no acute cardiopulmonary disease however COPD like changes noted Past medical history significant for type 2 diabetes mellitus, DVT, hypertension hypertensive cardiovascular disease, PE, prior history of acute RI, mood disorder and depression, dyslipidemia, hypothyroidism, GERD and coronary artery disease Review of Systems All systems: negative Past Medical History Past Medical History: Diabetes Mellitus, Deep Vein Thrombosis (DVT), Hypertension, Pulmonary Embolus (PE) Additional Past Medical History / Comment(s): bilateral ankle fracture, right upper arm fracture History of Any Multi-Drug Resistant Organisms: None Reported Past Surgical History: Heart Catheterization With Stent, Orthopedic Surgery Additional Past Surgical History / Comment(s): Stent x12, fliter in leg, detached retina, left arm fracture Date of Last Stent Placement:: April 09, 2024 Past Psychological History: No Psychological Hx Reported Smoking Status: Never smoker Past Alcohol Use History: None Reported Past Drug Use History: None Reported - Past Family History Father Family Medical History: Diabetes Mellitus, Myocardial Infarction (RI) Mother Family Medical History: Congestive Heart Failure (CHF), Diabetes Mellitus Sister(s) Family Medical History: Diabetes Mellitus, Myocardial Infarction (RI) Additional Family Medical History / Comment(s): at age 67 Brother(s) Family Medical History: Myocardial Infarction (RI) Additional Family Medical History / Comment(s): at age 59 Family Family Medical History: No Reported History Medications and Allergies Home Medications Medication Instructions Recorded Confirmed Type Apixaban [Eliquis] 5 mg PO BID 12/07/21 05/11/24 History DULoxetine HCL [Cymbalta] 60 mg PO BID 12/07/21 05/11/24 History Ezetimibe [Zetia] 10 mg PO HS 12/07/21 05/11/24 History Insulin Aspart [NovoLOG Flexpen] 30 - 50 units SQ TID-W/MEALS 12/07/21 05/11/24 History Linaclotide [Linzess] 290 mcg PO DAILY 12/07/21 05/11/24 History Potassium Chloride ER [K-Dur 20] 20 meq PO DAILY 12/07/21 05/11/24 History Rosuvastatin [Crestor] 20 mg PO HS 12/07/21 05/11/24 History Buprenorphine-Nalox 8-2 mg Tab 1 tab SUBLINGUAL BID 04/29/24 05/11/24 History [Suboxone 8-2 mg Tab] Levothyroxine Sodium [Synthroid] 100 mcg PO DAILY 04/29/24 05/11/24 History Metoclopramide [Reglan] 10 mg PO DAILY 04/29/24 05/11/24 History Pantoprazole Sodium [Protonix] 20 mg PO DAILY 04/29/24 05/11/24 History Ticagrelor [Brilinta] 90 mg PO DAILY 04/29/24 05/11/24 History amLODIPine [Norvasc] 5 mg PO DAILY 04/29/24 05/11/24 History lisinopriL 40 mg PO DAILY 04/29/24 05/11/24 History Metoprolol Succinate (ER) [Toprol 25 mg PO DAILY 30 Days #30 tab 05/03/24 05/11/24 Rx XL] Zolpidem [Ambien] 5 mg PO HS PRN 3 Days #3 tab 05/03/24 05/11/24 Rx Insulin Detemir [Levemir Flexpen] 40 units SQ BID 05/11/24 05/11/24 History Allergies Allergy/AdvReac Type Severity Reaction Status Date / Time butorphanol [From Stadol] Allergy Unknown Verified 05/11/24 09:25 codeine Allergy Rash/Hives Verified 05/11/24 09:25 meperidine [From Demerol] Allergy Anaphylaxis Verified 05/11/24 09:25 NSAIDS (Non-Steroidal Allergy Anaphylaxis Verified 05/11/24 09:25 Anti-Inflamma carvedilol [From Coreg] AdvReac Migraines Verified 05/11/24 09:25 dapagliflozin [From Farxiga] AdvReac DKA Verified 05/11/24 09:25 Physical Exam Vitals: Vital Signs Temp Pulse Pulse Pulse Resp BP BP 05/11/24 07:15 98.4 F 83 17 05/11/24 03:25 98.6 F 91 17 136/77 05/10/24 23:20 98.7 F 110 H 18 125/87 05/10/24 22:47 103 H 16 134/68 05/10/24 21:38 88 16 134/69 05/10/24 18:49 99.0 F 102 H 16 165/93 05/10/24 17:30 105 H 18 184/98 05/10/24 16:25 110 H 05/10/24 16:15 98.5 F 110 H 20 196/112 BP Pulse Ox 05/11/24 07:15 130/62 98 05/11/24 03:25 96 05/10/24 23:20 97 05/10/24 22:47 97 05/10/24 21:38 05/10/24 18:49 97 05/10/24 17:30 98 05/10/24 16:25 05/10/24 16:15 100 Intake and Output 05/10/24 05/11/24 05/11/24 22:59 06:59 14:59 Intake Total 118 Balance 118 Intake: Oral 118 Other: # Voids 1 Weight 70.76 kg 70.76 kg - Constitutional General appearance: average body habitus, cooperative, disheveled, mild distress - Neck Neck: normal ROM Carotids: bilateral: upstroke normal Thyroid: bilateral: normal size - Respiratory Respiratory: bilateral: CTA - Cardiovascular Rhythm: regular Heart sounds: normal: S1, S2 - Gastrointestinal General gastrointestinal: normal bowel sounds - Integumentary Integumentary: normal turgor - Neurologic Neurologic: CNII-XII intact - Musculoskeletal Musculoskeletal: gait normal, generalized weakness, strength equal bilaterally - Psychiatric Psychiatric: A&O x's 3, appropriate affect, intact judgment & insight Results CBC & Chem 7: 05/10/24 17:03 05/10/24 17:13 Labs: Abnormal Lab Results - Last 24 Hours (Table) 05/10/24 05/10/24 05/11/24 Range/Units 17:03 17:13 00:53 Hct 46.8 H (34.0-46.0) % Creatinine 0.44 L (0.52-1.04) mg/dL Glucose 244 H (74-99) mg/dL POC Glucose (mg/dL) 294 H (70-110) mg/dL Alkaline Phosphatase 128 H (38-126) U/L Troponin I (0.000-0.034) ng/mL 05/11/24 05/11/24 Range/Units 03:42 05:48 Hct (34.0-46.0) % Creatinine (0.52-1.04) mg/dL Glucose (74-99) mg/dL POC Glucose (mg/dL) 176 H (70-110) mg/dL Alkaline Phosphatase (38-126) U/L Troponin I 0.040 H* (0.000-0.034) ng/mL Chest x-ray: report reviewed, image reviewed Thrombosis Risk Factor Assmnt - Choose All That Apply Each Factor Represents 1 point: Obesity (BMI >25) Each Risk Factor Represents 2 Points: Age 61-74 years Each Risk Factor Represents 3 Points: History of DVT/PE Thrombosis Risk Factor Assessment Total Risk Factor Score: 6 Thrombosis Risk Factor Assessment Level: High Risk Assessment and Plan Assessment: Elevated troponin with symptoms of chest pain and nausea vomiting, cardiovascular services on consult, will defer heparin drip versus keeping on direct acting oral anticoagulant to their expertise Burning urinating and dysuria, will send urine for [employer] and analysis Uncontrolled diabetes with hyperglycemia, continue sliding scale insulin Accu- Cheks Nausea and vomiting intractable, history of diabetic gastroparesis, patient requested GI evaluation as she was supposed to undergo gastric emptying and will consult GI DVT PE by history on direct acting oral anticoagulant Dyslipidemia, continue high intensity statin Hypertension hypertensive cardiovascular disease, resume Zestril metoprolol follow clinical course closely Plan: As above Time with Patient: Greater than 30
[2024-05-11] MEDS: METOPROLOL SUCCINATE (ER) 25 MG TAB.ER.24H PO SCH (10:46)
[2024-05-11] MEDS: amLODIPine 5 MG TAB PO SCH (10:46)
[2024-05-11] MEDS: lisinopriL 20 MG TAB PO SCH (10:46)
[2024-05-11] MEDS: TICAGRELOR 90 MG TAB PO SCH (10:47)
[2024-05-11] MEDS: POTASSIUM CHLORIDE ER 20 MEQ TAB.ER PO SCH (10:47)
[2024-05-11] MEDS: APIXABAN 5 MG TAB PO SCH (10:48)
[2024-05-11 12:21] LABS: Glucose,Whole Blood 261 mg/dL (70-110)
[2024-05-11] MEDS: ISOSORBIDE MONONITRATE ER 30 MG TAB.ER.24H PO SCH (12:44)
[2024-05-11 15:13] LABS: Appearance,Urine Clear (Clear); Bacteria,Urine Rare /hpf; Bilirubin,Urine Negative (Negative); Blood,Urine Negative (Negative); Color,Urine Yellow; Glucose,Urine (UA) 4+ (Negative); Ketones,Urine Negative (Negative); Leukocyte Esterase,Urine Moderate (Negative); Mucus,Urine Rare /hpf; Nitrite,Urine Negative (Negative); Protein,Urine Negative (Negative); RBC,Urine 3 /hpf (0-5); Specific Gravity,Urine 1.018 (1.001-1.035); Squamous Epithelial Cell,Urine 2 /hpf (0-4); Urobilinogen,Urine <2.0 mg/dL (<2.0); WBC,Urine 41 /hpf (0-5)
[2024-05-11] MEDS: ACETAMINOPHEN TAB 325 MG TAB PO PRN (16:02)
[2024-05-11] MEDS: DULoxetine HCL 60 MG CAPSULE.DR PO SCH (16:03)
[2024-05-11 17:11] LABS: Glucose,Whole Blood 327 mg/dL (70-110)
[2024-05-11] MEDS: ATORVASTATIN 40 MG TAB PO SCH (19:52)
[2024-05-11 20:52] LABS: Glucose,Whole Blood 284 mg/dL (70-110)
[2024-05-11] MEDS: INSULIN DETEMIR (LEVEMIR) 100 UNIT/ML SYR SQ SCH (20:57)
[2024-05-11] MEDS: EZETIMIBE 10 MG TAB PO SCH (20:57)
[2024-05-11] MEDS: BUPRENORPHINE NALOX SUBLINGUAL SCH (20:57)
[2024-05-11] MEDS: ZOLPIDEM 5 MG TAB PO PRN (22:25)
[2024-05-12 06:01] LABS: Glucose,Whole Blood 85 mg/dL (70-110)
[2024-05-12] MEDS: NON FORMULARY DRUG (Linaclotide [Linzess] 290 MCG Capsule) PO SCH (06:38)
[2024-05-12] MEDS: LEVOTHYROXINE 100 MCG TAB PO SCH (06:38)
[2024-05-12] MEDS: PANTOPRAZOLE 40 MG TABLET PO SCH (06:38)
--- NOTE | 2024-05-12 07:57 | P.PN ---
Subjective Progress Note Date: 05/12/24 Principal diagnosis: Elevated troponin with symptoms of chest pain and nausea vomiting, cardiovascular services on consult, will defer heparin drip versus keeping on direct acting oral anticoagulant to their expertise Burning urinating and dysuria, will send urine for [employer] and analysis Uncontrolled diabetes with hyperglycemia, continue sliding scale insulin Accu- Cheks Nausea and vomiting intractable, history of diabetic gastroparesis, patient requested GI evaluation as she was supposed to undergo gastric emptying and will consult GI DVT PE by history on direct acting oral anticoagulant Dyslipidemia, continue high intensity statin Hypertension hypertensive cardiovascular disease, resume Zestril metoprolol follow clinical course closely May 12, 2024, patient seen and evaluated examined during rounds labs reviewed medications and care plan discussed, patient complaining of soreness in throat however the pressure and dysuria around bladder site has improved patient remains on antibiotics, and gently being hydrated, labs not done today, patient being continued on antihypertensive agents along with antilipid's and antidepressant, patient is on sliding scale insulin with short and long-acting insulin, maximized on medical therapy with BOO inhibitor and nitrates, patient being continued on direct oral anticoagulants. Will order labs and continue Rocephin Patient seen and evaluated examined while covering for Dr. Brooks Saldaña, patient admitted to hospital with 3-day history of nausea and vomiting patient has been not taking her blood pressure medicine as well as oral anticoagulant admitted into hospital she has noted to have elevated troponin cardiology is on consult in addition has problems with burning urination and dysuria. Initial labs were significant for within normal limits CBC and chemistry D-dimer is 0.3, glucose however is 244 troponin 4 and 7 seconds within normal limit third noted to be high of 0.04 BNP 914 cardiovascular services on consult. Chest x-ray no acute cardiopulmonary disease however COPD like changes noted Past medical history significant for type 2 diabetes mellitus, DVT, hypertension hypertensive cardiovascular disease, PE, prior history of acute [place], mood disorder and depression, dyslipidemia, hypothyroidism, GERD and coronary artery disease Objective - Vital Signs Vital signs: Vital Signs Temp 98.5 F 05/12/24 07:00 Pulse 83 05/12/24 07:00 Resp 16 05/12/24 07:00 BP 107/65 05/12/24 07:00 Pulse Ox 96 05/12/24 07:00 FiO2 Intake & Output 10/29/24 10/30/24 10/30/24 18:59 06:59 18:59 Intake Total 826 Balance 826 Intake: Oral 826 Other: Voiding Method Toilet Toilet # Voids 4 2 - Exam - Constitutional General appearance: average body habitus, cooperative, disheveled, mild distress - Neck Neck: normal ROM Carotids: bilateral: upstroke normal Thyroid: bilateral: normal size - Respiratory Respiratory: bilateral: CTA - Cardiovascular Rhythm: regular Heart sounds: normal: S1, S2 - Gastrointestinal General gastrointestinal: normal bowel sounds - Integumentary Integumentary: normal turgor - Neurologic Neurologic: CNII-XII intact - Musculoskeletal Musculoskeletal: gait normal, generalized weakness, strength equal bilaterally - Psychiatric Psychiatric: A&O x's 3, appropriate affect, intact judgment & insight - Labs CBC & Chem 7: 05/10/24 17:03 05/10/24 17:13 Labs: Abnormal Lab Results - Last 24 Hours (Table) 05/11/24 05/11/24 05/11/24 Range/Units 09:56 12:20 17:10 POC Glucose (mg/dL) 261 H 327 H (70-110) mg/dL Urine Glucose (UA) 4+ H (Negative) Ur Leukocyte Esterase Moderate H (Negative) Urine WBC 41 H (0-5) /hpf Urine Bacteria Rare H (None) /hpf Urine Mucus Rare H (None) /hpf 05/11/24 Range/Units 20:50 POC Glucose (mg/dL) 284 H (70-110) mg/dL Urine Glucose (UA) (Negative) Ur Leukocyte Esterase (Negative) Urine WBC (0-5) /hpf Urine Bacteria (None) /hpf Urine Mucus (None) /hpf Assessment and Plan Assessment: Elevated troponin with symptoms of chest pain and nausea vomiting, cardiov ascular services on consult, will defer heparin drip versus keeping on direct acting oral anticoagulant to their expertise Burning urinating and dysuria, will send urine for [employer] and analysis, and con perez Sheehan Uncontrolled diabetes with hyperglycemia, continue sliding scale insulin Accu- Cheks Nausea and vomiting intractable, history of diabetic gastroparesis, patient requested GI evaluation as she was supposed to undergo gastric emptying and will consult GI DVT PE by history on direct acting oral anticoagulant Dyslipidemia, continue high intensity statin Hypertension hypertensive cardiovascular disease, resume Zestril metoprolol follow clinical course closely Plan: As above Time with Patient: Greater than 30
[2024-05-12 08:30] LABS: HCT 39.4 % (37.2-46.3); HGB 13.2 g/dL (12.0-15.0); MCH 29.5 pg (27.0-32.0); MCHC 33.5 g/dL (32.0-37.0); MCV 88.1 FL (80.0-97.0); Mean Platelet Volume 9.5 FL (9.5-12.2); NRBC Per 100 WBC 0 X 10*3/uL (0.00-0.01); Platelet Count 244 X 10*3/uL (140-440); RBC 4.47 X 10*6/uL (4.10-5.20); RDW 12.9 % (11.5-14.5); WBC 7.17 X 10*3/uL (4.50-10.00)
[2024-05-12 08:31] LABS: Blood Urea Nitrogen 11.4 mg/dL (9.0-27.0); Chloride 106 mmol/L (96-109); Glucose 90 mg/dL (70-110); Potassium 3.3 mmol/L (3.5-5.5); Sodium 143 mmol/L (135-145)
[2024-05-12] MEDS: RANOLAZINE 500 MG TAB.ER.12H PO SCH (08:33)
--- NOTE | 2024-05-12 09:40 | PN ---
PROGRESS NOTE HISTORY OF PRESENT ILLNESS: A 63-year-old lady with history of coronary artery disease, status post multiple prior revascularizations, was admitted to hospital with non ST-segment elevation OK, was advised to undergo cardiac catheterization for further evaluation. Understanding risks and benefits, she opted not to and became chest pain free. I added nitrates yesterday. However, she is not able to tolerate nitrates because of headache. I am going to switch her to Ranexa. Her predominant symptoms are actually mostly abdominal symptoms with abdominal discomfort, fullness, and other symptoms. PHYSICAL EXAMINATION: GENERAL: This morning, she is comfortable at rest, ambulating without any symptoms. VITAL SIGNS: Stable. NECK: There is no jugular venous distention. Carotid upstroke is normal. There is no bruit. CHEST: Reveals good air entry bilaterally. HEART: Reveals first and second heart sounds. No gallop. ABDOMEN: Soft. EXTREMITIES: Did not reveal any edema. Peripheral pulses are felt. ASSESSMENT: 1. Non ST-segment elevation myocardial infarction, for medical therapy. The patient opted not to undergo cardiac catheterization. 2. Paroxysmal atrial fibrillation. 3. Hypertension. PLAN: I am going to stop the Imdur and start the patient on Ranexa and ambulate her. MMODL / IJN: [id number] /
[2024-05-12] MEDS: BENZOCAINE/MENTHOL LOZENG 1 EACH LOZENGE MUCOUS MEM PRN (10:38)
[2024-05-12 12:10] LABS: Glucose,Whole Blood 160 mg/dL (70-110)
[2024-05-12 17:14] LABS: Glucose,Whole Blood 125 mg/dL (70-110)
[2024-05-12 20:32] LABS: Glucose,Whole Blood 298 mg/dL (70-110)
[2024-05-13 05:50] LABS: Glucose,Whole Blood 101 mg/dL (70-110)
[2024-05-13 08:41] LABS: Basophils # (A) 0.04 X 10*3/uL (0.00-0.10); Basophils % (A) 0.7 %; Eosinophils # (A) 0.07 X 10*3/uL (0.04-0.35); Eosinophils % (A) 1.3 %; HGB 13.3 g/dL (12.0-15.0); Lymphocytes # (A) 1.85 X 10*3/uL (0.90-5.00); Lymphocytes % (A) 33.6 %; MCH 29.9 pg (27.0-32.0); MCHC 33.3 g/dL (32.0-37.0); MCV 89.9 FL (80.0-97.0); Mean Platelet Volume 9.6 FL (9.5-12.2); Monocytes # (A) 0.52 X 10*3/uL (0.20-1.00); Monocytes % (A) 9.4 %; NRBC Per 100 WBC 0 X 10*3/uL (0.00-0.01); Neutrophils % (A) 54.5 %; Platelet Count 265 X 10*3/uL (140-440); RBC 4.45 X 10*6/uL (4.10-5.20); RDW 13.1 % (11.5-14.5); WBC 5.51 X 10*3/uL (4.50-10.00)
[2024-05-13 08:45] LABS: Blood Urea Nitrogen 12.9 mg/dL (9.0-27.0); Carbon Dioxide 25.4 mmol/L (21.6-31.8); Chloride 106 mmol/L (96-109); Glucose 108 mg/dL (70-110); Potassium 3.9 mmol/L (3.5-5.5); Sodium 141 mmol/L (135-145)
[2024-05-13 08:46] LABS: ALT 14 U/L (8-44); AST 15 U/L (13-35); Albumin 3.8 g/dL (3.8-4.9); Albumin/Globulin Ratio 1.81 Ratio (1.60-3.17); Alkaline Phosphatase 98 U/L (41-126); Globulin 2.1 g/dL (1.6-3.3); Total Bilirubin 0.5 mg/dL (0.3-1.2); Total Protein 5.9 g/dL (6.2-8.2)
--- NOTE | 2024-05-13 09:36 | P.PN ---
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 We have been asked to evaluate the patient for chest pain. Patient had a recent hospitalization on 1016. Patient states that she is here for the exact same symptoms. She states that she did not realize she was going to run out of Reglan which happened on Friday. She has not been able to to obtain more Reglan over the weekend. She started having nausea and vomiting which she has approximately 3-4 episodes per year which requires ho spitalization. She states she also had some chest pressure but does not have any now. Patient states that she feels much better from yesterday. Discussed elevated troponin with recommendations for cardiac catheterization but patient declined and would rather follow-up with her own life sciences instructor for any procedures. Patient presented with a blood pressure 196/112 status post 1 dose of labetalol IV. Blood pressure is now 130/62, heart rate 83, pulse ox 98% on room air. Patient has not been taking her home medications since last . EKG: Sinus rhythm with no acute ST changes chronic nonspecific ST-T wave changes, 105 bpm Chest x-ray: No acute findings. COPD Laboratory studies: Troponins 0.012, 0.014, 0.04. proBNP 914. Potassium 3.5, creatinine 0.44. D-dimer 0.3. Home cardiac medications: Echocardiogram performed on 04/30/2024 revealed EF 55%, increased left ventricular wall thickness, mild MR, mild AR, mild TR, RVSP 19. 05/13 Yesterday, patient was having headache thought to be due to Imdur which was was discontinued and patient started on Ranexa 500 mg twice daily. Patient denies chest pain. She is still not wanting to undergo cardiac catheterization. She does want her son to talk to us and he will be in later today. Blood pressure 115/69, heart rate 72, pulse ox 94% on room air. Records from patient's life sciences instructor office Physical examination: Gen: This is a 63-year-old female in no acute distress VS: reviewed HEENT: Head is atraumatic, normocephalic. Pupils equal, round. Sclerae is anicteric. NECK: Supple. No JVD. LUNGS: Clear to auscultation. No wheezes or rhonchi. No intercostal retractions. HEART: Regular rate and rhythm. No murmur. ABDOMEN: Soft No tenderness. EXTREMITIES: No pedal edema. No calf tenderness. NEUROLOGICAL: Patient is awake, alert and oriented x3. Assessment: NSTEMI Uncontrolled hypertension Diabetes with suspected gastroparesis Coronary artery disease with previous stenting x 12 per patient Mild ischemic cardiomyopathy Diabetes mellitus type 2 Hypertension Hyperlipidemia History of DVT and PE on Eliquis Plan: Continue patient's home cardiac medications Continue Ranexa 500 mg twice daily No need to repeat echocardiogram as this was done 04/30 Patient offered cardiac catheterization and she declined request to follow-up with her primary life sciences instructor Patient will follow-up with her primary life sciences instructor at the time of discharge. Nurse practitioner note has been reviewed, I agree with documented findings and plan of care. Patient was seen and examined. Objective - Vital Signs Vital signs: Vital Signs Temp 98.5 F 05/13/24 01:39 Pulse 68 05/13/24 01:39 Resp 18 05/13/24 01:39 BP 93/53 05/13/24 01:39 Pulse Ox 97 05/13/24 01:39 FiO2 Intake & Output 05/12/24 05/13/24 05/13/24 18:59 06:59 18:59 Intake Total 550 Balance 550 Intake: Oral 550 Other: Voiding Method Toilet Toilet # Voids 3 1 - Labs CBC & Chem 7: 05/13/24 04:34 05/13/24 04:34 Labs: Abnormal Lab Results - Last 24 Hours (Table) 05/12/24 05/12/24 05/12/24 Range/Units 04:16 04:16 12:07 Potassium 3.3 L (3.5-5.5) mmol/L Creatinine 0.5 L (0.6-1.5) mg/dL BUN/Creatinine Ratio 22.80 H (12.00-20.00) Ratio POC Glucose (mg/dL) 160 H (70-110) mg/dL Hemoglobin A1c 10.7 H (<=6.0) % 05/12/24 05/12/24 Range/Units 17:12 20:30 Potassium (3.5-5.5) mmol/L Creatinine (0.6-1.5) mg/dL BUN/Creatinine Ratio (12.00-20.00) Ratio POC Glucose (mg/dL) 125 H 298 H (70-110) mg/dL Hemoglobin A1c (<=6.0) %
[2024-05-13 12:20] LABS: Glucose,Whole Blood 210 mg/dL (70-110)
--- NOTE | 2024-05-13 12:37 | P.PN ---
Subjective Progress Note Date: 05/13/24 Principal diagnosis: Elevated troponin with symptoms of chest pain and nausea vomiting, cardiovascular services on consult, will defer heparin drip versus keeping on direct acting oral anticoagulant to their expertise Burning urinating and dysuria, will send urine for [employer] and analysis Uncontrolled diabetes with hyperglycemia, continue sliding scale insulin Accu- Cheks Nausea and vomiting intractable, history of diabetic gastroparesis, patient requested GI evaluation as she was supposed to undergo gastric emptying and will consult GI DVT PE by history on direct acting oral anticoagulant Dyslipidemia, continue high intensity statin Hypertension hypertensive cardiovascular disease, resume Zestril metoprolol follow clinical course closely May 13, 2024, patient seen eval examined during rounds labs reviewed medications reviewed care plan discussed, patient has little bit is congestion in the throat and ongoing cough congestion but severity has improved. Still h ave some dysuria but overall symptoms are improved patient remains on antibiotics and continued antibiotics. Labs reviewed CBC within normal limit chemistry within normal limit as well cardiovascular services evaluating the patient and possible cath time in future May 12, 2024, patient seen and evaluated examined during rounds labs reviewed medications and care plan discussed, patient complaining of soreness in throat however the pressure and dysuria around bladder site has improved patient remains on antibiotics, and gently being hydrated, labs not done today, patient being continued on antihypertensive agents along with antilipid's and antidepressant, patient is on sliding scale insulin with short and long-acting insulin, maximized on medical therapy with BOO inhibitor and nitrates, patient being continued on direct oral anticoagulants. Will order labs and continue Rocephin Patient seen and evaluated examined while covering for Dr. Brooks Saldaña, patient admitted to hospital with 3-day history of nausea and vomiting patient has been not taking her blood pressure medicine as well as oral anticoagulant admitted into hospital she has noted to have elevated troponin cardiology is on consult in addition has problems with burning urination and dysuria. Initial labs were significant for within normal limits CBC and chemistry D-dimer is 0.3, glucose however is 244 troponin 4 and 7 seconds within normal limit third noted to be high of 0.04 BNP 914 cardiovascular services on consult. Chest x-ray no acute cardiopulmonary disease however COPD like changes noted Past medical history significant for type 2 diabetes mellitus, DVT, hypertension hypertensive cardiovascular disease, PE, prior history of acute [place], mood disorder and depression, dyslipidemia, hypothyroidism, GERD and coronary artery disease Objective - Vital Signs Vital signs: Vital Signs Temp 98.7 F 05/13/24 06:55 Pulse 72 05/13/24 06:55 Resp 16 05/13/24 06:55 BP 115/69 05/13/24 06:55 Pulse Ox 94 L 05/13/24 06:55 FiO2 Intake & Output 05/12/24 05/13/24 05/13/24 18:59 06:59 18:59 Intake Total 550 118 Balance 550 118 Intake: Oral 550 118 Other: Voiding Method Toilet Toilet Toilet # Voids 3 1 - Exam - Constitutional General appearance: average body habitus, cooperative, disheveled, mild distress - Neck Neck: normal ROM Carotids: bilateral: upstroke normal Thyroid: bilateral: normal size - Respiratory Respiratory: bilateral: CTA - Cardiovascular Rhythm: regular Heart sounds: normal: S1, S2 - Gastrointestinal General gastrointestinal: normal bowel sounds - Integumentary Integumentary: normal turgor - Neurologic Neurologic: CNII-XII intact - Musculoskeletal Musculoskeletal: gait normal, generalized weakness, strength equal bilaterally - Psychiatric Psychiatric: A&O x's 3, appropriate affect, intact judgment & insight - Labs CBC & Chem 7: 05/13/24 04:34 05/13/24 04:34 Labs: Abnormal Lab Results - Last 24 Hours (Table) 05/12/24 05/12/24 05/13/24 Range/Units 17:12 20:30 04:34 BUN/Creatinine Ratio 21.50 H (12.00-20.00) Ratio POC Glucose (mg/dL) 125 H 298 H (70-110) mg/dL Total Protein 5.9 L (6.2-8.2) g/dL 05/13/24 Range/Units 12:18 BUN/Creatinine Ratio (12.00-20.00) Ratio POC Glucose (mg/dL) 210 H (70-110) mg/dL Total Protein (6.2-8.2) g/dL Assessment and Plan Assessment: Elevated troponin with symptoms of chest pain and nausea vomiting, cardiovascular services on consult, will defer heparin drip versus keeping on direct acting oral anticoagulant to their expertise, patient being evaluated for possible cardiac cath angiogram Burning urinating and dysuria, will send urine for [employer] and analysis, and continue Rocephin Uncontrolled diabetes with hyperglycemia, continue sliding scale insulin Accu- Cheks Nausea and vomiting intractable, history of diabetic gastroparesis, patient requested GI evaluation as she was supposed to undergo gastric emptying and will consult GI DVT PE by history on direct acting oral anticoagulant Dyslipidemia, continue high intensity statin Hypertension hypertensive cardiovascular disease, resume Zestril metoprolol follow clinical course closely Plan: As above Time with Patient: Greater than 30
[2024-05-13 17:06] LABS: Glucose,Whole Blood 282 mg/dL (70-110)
[2024-05-13] MEDS: INSULIN ASPART (NovoLOG) 100 UNIT/ML VIAL SQ SCH (18:08)
[2024-05-13 19:54] LABS: Glucose,Whole Blood 268 mg/dL (70-110)
[2024-05-14 05:49] LABS: Glucose,Whole Blood 115 mg/dL (70-110)
[2024-05-14 08:19] LABS: Basophils # (A) 0.04 X 10*3/uL (0.00-0.10); Basophils % (A) 0.8 %; Eosinophils # (A) 0.06 X 10*3/uL (0.04-0.35); Eosinophils % (A) 1.1 %; HCT 39.8 % (37.2-46.3); HGB 13.1 g/dL (12.0-15.0); Lymphocytes # (A) 1.75 X 10*3/uL (0.90-5.00); Lymphocytes % (A) 33.4 %; MCH 29.8 pg (27.0-32.0); MCHC 32.9 g/dL (32.0-37.0); MCV 90.5 FL (80.0-97.0); Mean Platelet Volume 9.6 FL (9.5-12.2); Monocytes # (A) 0.49 X 10*3/uL (0.20-1.00); Monocytes % (A) 9.4 %; NRBC Per 100 WBC 0 X 10*3/uL (0.00-0.01); Neutrophils # (A) 2.87 X 10*3/uL (1.80-7.70); Neutrophils % (A) 54.7 %; Platelet Count 242 X 10*3/uL (140-440); RDW 13.1 % (11.5-14.5); WBC 5.24 X 10*3/uL (4.50-10.00)
[2024-05-14] MEDS ORDERED: NITROGLYCERIN SL TABS 0.4 MG TAB SUBLINGUAL PRN (08:39)
[2024-05-14 08:46] VITALS: BMI 25.9
[2024-05-14 09:04] LABS: Blood Urea Nitrogen 18.6 mg/dL (9.0-27.0); Carbon Dioxide 27.2 mmol/L (21.6-31.8); Chloride 104 mmol/L (96-109); Glucose 116 mg/dL (70-110); Sodium 142 mmol/L (135-145)
[2024-05-14 09:05] LABS: ALT 16 U/L (8-44); AST 16 U/L (13-35); Albumin 3.8 g/dL (3.8-4.9); Albumin/Globulin Ratio 1.81 Ratio (1.60-3.17); Alkaline Phosphatase 103 U/L (41-126); Calcium 9.4 mg/dL (8.7-10.3); Globulin 2.1 g/dL (1.6-3.3); Total Bilirubin 0.5 mg/dL (0.3-1.2); Total Protein 5.9 g/dL (6.2-8.2)
[2024-05-14 11:59] LABS: Glucose,Whole Blood 249 mg/dL (70-110)
--- NOTE | 2024-05-14 12:57 | P.PN ---
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 Thad Shahid with past medical history of coronary artery disease with 12 stents (per patient), congestive heart failure, hypertension, hyperlipidemia, diabetes, DVT/PE, and suspected gastroparesis. We have been asked to evaluate the patient for chest pain. Patient had a recent hospitalization on 1016. Patient states that she is here for the exact same symptoms. She states that she did not realize she was going to run out of Reglan which happened on Friday. She has not been able to to obtain more Reglan over the weekend. She started having nausea and vomiting which she has approximately 3-4 episodes per year which requires hos pitalization. She states she also had some chest pressure but does not have any now. Patient states that she feels much better from yesterday. Discussed elevated troponin with recommendations for cardiac catheterization but patient declined and would rather follow-up with her own gold frame assembler for any procedures. Patient presented with a blood pressure 196/112 status post 1 dose of labetalol IV. Blood pressure is now 130/62, heart rate 83, pulse ox 98% on room air. Patient has not been taking her home medications since last . EKG: Sinus rhythm with no acute ST changes chronic nonspecific ST-T wave changes, 105 bpm Chest x-ray: No acute findings. COPD Laboratory studies: Troponins 0.012, 0.014, 0.04. proBNP 914. Potassium 3.5, creatinine 0.44. D-dimer 0.3. Home cardiac medications: Echocardiogram performed on 04/30/2024 revealed EF 55%, increased left ventricular wall thickness, mild MR, mild AR, mild TR, RVSP 19. 05/13 Yesterday, patient was having headache thought to be due to Imdur which was was discontinued and patient started on Ranexa 500 mg twice daily. Patient denies chest pain. She is still not wanting to undergo cardiac catheterization. She does want her son to talk to us and he will be in later today. Blood pressure 115/69, heart rate 72, pulse ox 94% on room air. 05/14 Patient is seen and examined. Blood pressure 107/69, heart rate 71, pulse ox 90% on room air. Patient send apparently was here but we were not notified of his presence. Chris Soriano's phone number was left at the bedside for patient to provide to her son. She is now willing to go for cardiac catheterization which will be scheduled on Friday. Records from patient's gold frame assembler office dated 04/09/2024 at which time patient presented to reviewed [facility] with NSTEMI. She underwent successful OCT guided complex percutaneous coronary intervention to the severe mRCA recurrent in-stent restenosis. 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 Patient underwent successful PCI to mRCA severe ISR with score flex scoring balloon and 3 rounds of laser atherectomy and placement of a Megatron KATHY. Physical examination: Gen: This is a 63-year-old female in no acute distress VS: reviewed HEENT: Head is atraumatic, normocephalic. Pupils equal, round. Sclerae is anicteric. NECK: Supple. No JVD. LUNGS: Clear to auscultation. No wheezes or rhonchi. No intercostal retractions. HEART: Regular rate and rhythm. No murmur. ABDOMEN: Soft No tenderness. EXTREMITIES: No pedal edema. No calf tenderness. NEUROLOGICAL: Patient is awake, alert and oriented x3. Assessment: NSTEMI Uncontrolled hypertension Diabetes with suspected gastroparesis Coronary artery disease with previous stenting x 12 per patient Mild ischemic cardiomyopathy Diabetes mellitus type 2 Hypertension Hyperlipidemia History of DVT and PE on Eliquis Plan: Continue patient's home cardiac medications Continue the addition of Ranexa 500 mg twice daily No need to repeat echocardiogram as this was done 04/30 Schedule patient for cardiac catheterization on Friday Hold Eliquis after Friday evening's dose N.p.o. after midnight Patient will follow-up with her primary gold frame assembler at the time of discharge. Nurse practitioner note has been reviewed, I agree with documented findings and plan of care. Patient was seen and examined. Objective - Vital Signs Vital signs: Vital Signs Temp 99.2 F 05/14/24 00:29 Pulse 71 05/14/24 00:29 Resp 18 05/14/24 00:29 BP 107/69 05/14/24 00:29 Pulse Ox 98 05/14/24 00:29 FiO2 Intake & Output 1005/14/24 05/14/24 18:59 06:59 18:59 Intake Total 236 720 Balance 236 720 Weight 70.76 kg Intake: Oral 236 720 Other: Voiding Method Toilet Toilet # Voids 2 3 - Labs CBC & Chem 7: 05/14/24 05:53 05/14/24 05:53 Labs: Abnormal Lab Results - Last 24 Hours (Table) 05/13/24 05/13/24 05/13/24 Range/Units 04:34 12:18 17:05 BUN/Creatinine Ratio 21.50 H (12.00-20.00) Ratio POC Glucose (mg/dL) 210 H 282 H (70-110) mg/dL Total Protein 5.9 L (6.2-8.2) g/dL 05/13/24 05/14/24 Range/Units 19:52 05:48 BUN/Creatinine Ratio (12.00-20.00) Ratio POC Glucose (mg/dL) 268 H 115 H (70-110) mg/dL Total Protein (6.2-8.2) g/dL
[2024-05-14 17:34] LABS: Glucose,Whole Blood 273 mg/dL (70-110)
--- NOTE | 2024-05-14 17:55 | P.PN ---
Subjective Progress Note Date: 05/14/24 Principal diagnosis: Elevated troponin with symptoms of chest pain and nausea vomiting, cardiovascular services on consult, will defer heparin drip versus keeping on direct acting oral anticoagulant to their expertise Burning urinating and dysuria, will send urine for [employer] and analysis Uncontrolled diabetes with hyperglycemia, continue sliding scale insulin Accu- Cheks Nausea and vomiting intractable, history of diabetic gastroparesis, patient requested GI evaluation as she was supposed to undergo gastric emptying and will consult GI DVT PE by history on direct acting oral anticoagulant Dyslipidemia, continue high intensity statin Hypertension hypertensive cardiovascular disease, resume Zestril metoprolol follow clinical course closely May 14, 2024, soreness in throat and bladder burning micturition slightly better now, patient has been recommended for cardiac catheter angiogram early next week, May 13, 2024, patient seen eval examined during rounds labs reviewed medications reviewed care plan discussed, patient has little bit is congestion in the throat and ongoing cough congestion but severity has improved. Still have some dysuria but overall symptoms are improved patient remains on antibiotics and continued antibiotics. Labs reviewed CBC within normal limit chemistry within normal limit as well cardiovascular services evaluating the patient and possible cath time in future May 12, 2024, patient seen and evaluated examined during rounds labs reviewed medications and care plan discussed, patient complaining of soreness in throat however the pressure and dysuria around bladder site has improved patient remains on antibiotics, and gently being hydrated, labs not done today, patient being continued on antihypertensive agents along with antilipid's and antidepressant, patient is on sliding scale insulin with short and long-acting i nsulin, maximized on medical therapy with BOO inhibitor and nitrates, patient being continued on direct oral anticoagulants. Will order labs and continue Rocephin Patient seen and evaluated examined while covering for Dr. Brooks Saldaña, patient admitted to hospital with 3-day history of nausea and vomiting patient has been not taking her blood pressure medicine as well as oral anticoagulant admitted into hospital she has noted to have elevated troponin cardiology is on consult in addition has problems with burning urination and dysuria. Initial labs were significant for within normal limits CBC and chemistry D-dimer is 0.3, glucose however is 244 troponin 4 and 7 seconds within normal limit third noted to be high of 0.04 BNP 914 cardiovascular services on consult. Chest x-ray no acute cardiopulmonary disease however COPD like changes noted Past medical history significant for type 2 diabetes mellitus, DVT, hypertension hypertensive cardiovascular disease, PE, prior history of acute MA, mood disorder and depression, dyslipidemia, hypothyroidism, GERD and coronary artery disease Objective - Vital Signs Vital signs: Vital Signs Temp 98.6 F 05/14/24 08:00 Pulse 82 05/14/24 08:00 Resp 16 05/14/24 08:00 BP 123/72 05/14/24 08:00 Pulse Ox 96 05/14/24 08:00 FiO2 Intake & Output 05/13/24 05/14/24 05/14/24 18:59 06:59 18:59 Intake Total 236 720 Balance 236 720 Weight 70.76 kg Intake: Oral 236 720 Other: Voiding Method Toilet Toilet Toilet # Voids 2 3 - Exam - Constitutional General appearance: average body habitus, cooperative, disheveled, mild distress - Neck Neck: normal ROM Carotids: bilateral: upstroke normal Thyroid: bilateral: normal size - Respiratory Respiratory: bilateral: CTA - Cardiovascular Rhythm: regular Heart sounds: normal: S1, S2 - Gastrointestinal General gastrointestinal: normal bowel sounds - Integumentary Integumentary: normal turgor - Neurologic Neurologic: CNII-XII intact - Musculoskeletal Musculoskeletal: gait normal, generalized weakness, strength equal bilaterally - Psychiatric Psychiatric: A&O x's 3, appropriate affect, intact judgment & insight - Labs CBC & Chem 7: 05/14/24 05:53 05/14/24 05:53 Labs: Abnormal Lab Results - Last 24 Hours (Table) 05/13/24 05/13/24 05/13/24 Range/Units 12:18 17:05 19:52 BUN/Creatinine Ratio (12.00-20.00) Ratio Glucose (70-110) mg/dL POC Glucose (mg/dL) 210 H 282 H 268 H (70-110) mg/dL Total Protein (6.2-8.2) g/dL 05/14/24 05/14/24 Range/Units 05:48 05:53 BUN/Creatinine Ratio 31.00 H (12.00-20.00) Ratio Glucose 116 H (70-110) mg/dL POC Glucose (mg/dL) 115 H (70-110) mg/dL Total Protein 5.9 L (6.2-8.2) g/dL Assessment and Plan Assessment: Elevated troponin with symptoms of chest pain and nausea vomiting, cardiovas cular services on consult, will defer heparin drip versus keeping on direct acting oral anticoagulant to their expertise, patient being evaluated for possible cardiac cath angiogram Burning urinating and dysuria, will send urine for [employer] and analysis, and continue Rocephin Uncontrolled diabetes with hyperglycemia, continue sliding scale insulin Accu- Cheks Nausea and vomiting intractable, history of diabetic gastroparesis, patient requested GI evaluation as she was supposed to undergo gastric emptying and will consult GI DVT PE by history on direct acting oral anticoagulant Dyslipidemia, continue high intensity statin Hypertension hypertensive cardiovascular disease, resume Zestril metoprolol follow clinical course closely Plan: As above Time with Patient: Greater than 30
[2024-05-14 20:15] LABS: Glucose,Whole Blood 302 mg/dL (70-110)
[2024-05-15 05:39] LABS: Glucose,Whole Blood 137 mg/dL (70-110)
--- NOTE | 2024-05-15 08:14 | P.PN ---
Subjective Progress Note Date: 05/15/24 This is a 63-year-old female patient with a past medical history significant for CAD with prior stenting with unknown details as well as hypertension and dyslipidemia who was admitted to the hospital with a chest discomfort and ruled in for acute coronary syndrome. Also she is on Eliquis for history of DVT. The troponin came in to be elevated. May 15, 2024 The patient was seen and evaluated this morning. She is asymptomatic at this point. Her pressure is better as well. Currently she is on Eliquis which I am going to stop and start the patient on heparin IV just in case she need to undergo an emergent heart catheterization. She is scheduled to undergo a heart catheterization on Friday. The examination is remarkable for regular rhythm with a soft systolic murmur and clear breathing sounds bilaterally and no edema was noted Assessment Non-STEMI Hypertension emergency which has improved CAD with prior revascularization Multiple comorbid conditions Plan Continue the current medical regimen DC Eliquis and start the patient on heparin Heart catheterization on Friday and a earlier if she has more symptoms Objective - Vital Signs Vital signs: Vital Signs Temp 98.0 F 05/15/24 02:47 Pulse 68 05/15/24 02:47 Resp 17 05/15/24 02:47 BP 121/75 05/15/24 02:47 Pulse Ox 97 05/15/24 02:47 FiO2 Intake & Output 05/14/24 05/15/24 05/15/24 18:59 06:59 18:59 Other: Voiding Method Toilet Toilet # Voids 2 2 - Labs CBC & Chem 7: 05/14/24 05:53 05/14/24 05:53 Labs: Abnormal Lab Results - Last 24 Hours (Table) 05/14/24 05/14/24 05/14/24 Range/Units 05:53 11:58 17:33 BUN/Creatinine Ratio 31.00 H (12.00-20.00) Ratio Glucose 116 H (70-110) mg/dL POC Glucose (mg/dL) 249 H 273 H (70-110) mg/dL Total Protein 5.9 L (6.2-8.2) g/dL 05/14/24 05/15/24 Range/Units 20:14 05:34 BUN/Creatinine Ratio (12.00-20.00) Ratio Glucose (70-110) mg/dL POC Glucose (mg/dL) 302 H 137 H (70-110) mg/dL Total Protein (6.2-8.2) g/dL
[2024-05-15] MEDS: HEPARIN SOD,PORK IN 0.45% NACL 25,000 UNIT in 0.45% NACL 1 250ML.BAG IV SCH (10:12)
[2024-05-15 12:14] LABS: Glucose,Whole Blood 275 mg/dL (70-110)
[2024-05-15] MEDS: IPRATROPIUM-ALBUTEROL 3 ML NEB INHALATION SCH (12:38)
[2024-05-15 17:09] LABS: Glucose,Whole Blood 129 mg/dL (70-110)
[2024-05-15] MEDS ORDERED: HEPARIN SODIUM 1,000 UN/ML (10ML VL) IVP PRN (17:38)
[2024-05-15] MEDS: HEPARIN SODIUM 1,000 UN/ML (10ML VL) IV PRN (18:02)
--- NOTE | 2024-05-15 19:14 | PN ---
PROGRESS NOTE A 63-year-old white female. Blood pressure is 97/59, temp 98.6, pulse 66, respiratory rate 16 to 18, O2 saturation 96% on room air. Severely hypotensive. Cardiology seen her. Significant history of coronary artery disease, , hypertension, dyslipidemia, chest discomfort. History of DVT. Troponin came in elevated. She is on Eliquis. Pack Puller switched over to Heparin in case we are doing a heart catheterization on Friday. Non-STEMI, hypertensive emergency, coronary artery disease. We will do a heart catheterization on Friday. Blood pressure 120s over 70s. Prognosis guarded. Continue current treatment. MMODL / IJN: [id number] /
[2024-05-15 19:56] LABS: Glucose,Whole Blood 243 mg/dL (70-110)
[2024-05-16 05:37] LABS: Glucose,Whole Blood 154 mg/dL (70-110)
[2024-05-16] MEDS: ALPRAZolam 0.25 MG TAB PO PRN (12:05)
--- NOTE | 2024-05-16 12:34 | P.PN ---
Subjective Progress Note Date: 05/16/24 This is a 63-year-old female patient with a past medical history significant for CAD with prior stenting with unknown details as well as hypertension and dyslipidemia who was admitted to the hospital with a chest discomfort and ruled in for acute coronary syndrome. Also she is on Eliquis for history of DVT. The troponin came in to be elevated. May 15, 2024 The patient was seen and evaluated this morning. She is asymptomatic at this point. Her pressure is better as well. Currently she is on Eliquis which I am going to stop and start the patient on heparin IV just in case she need to undergo an emergent heart catheterization. She is scheduled to undergo a heart catheterization on Friday. The examination is remarkable for regular rhythm with a soft systolic murmur and clear breathing sounds bilaterally and no edema was noted June 12, 2024 The patient was seen and evaluated this morning which she is asymptomatic and she is hemodynamically stable. The plan is to pursue with a heart catheterization tomorrow. She is somewhat anxious but she is on Xanax. The physical examination is remarkable for stable vital signs with regular rate and rhythm and clear breathing sounds bilaterally and no edema was noted Assessment Non-STEMI Hypertension emergency which has improved CAD with prior revascularization Multiple comorbid conditions Plan Continue the current medical regimen DC Eliquis and start the patient on heparin Heart catheterization on Friday and a earlier if she has more symptoms Objective - Vital Signs Vital signs: Vital Signs Temp 98.4 F 05/16/24 07:56 Pulse 68 05/16/24 07:56 Resp 16 05/16/24 07:56 BP 130/68 05/16/24 07:56 Pulse Ox 99 05/16/24 09:19 FiO2 Intake & Output 05/15/24 05/16/24 05/16/24 19:59 06:59 18:59 Intake Total 223.425 Output Total Balance 223.425 Intake: Intake, IV Titration 105.425 Amount Heparin Sod,Pork in 0.45% 105.425 NaCl 25,000 unit In 0.45 % NaCl 1 250ml.bag @ 12 UNITS/KG/HR 8.491 mls/hr IV .Q24H SOLOMON Rx#: [id number] Oral 118 Output: Urine Other: # Voids - Labs CBC & Chem 7: 05/14/24 05:53 05/14/24 05:53 Labs: Abnormal Lab Results - Last 24 Hours (Table) 05/15/24 05/15/24 05/15/24 Range/Units 17:07 17:08 19:53 APTT 35.3 H (22.0-30.0) sec POC Glucose (mg/dL) 129 H 243 H (70-110) mg/dL 05/16/24 05/16/24 05/16/24 Range/Units 00:10 05:35 08:13 APTT 63.2 H 49.1 H (22.0-30.0) sec POC Glucose (mg/dL) 154 H (70-110) mg/dL
[2024-05-16 12:36] LABS: Glucose,Whole Blood 129 mg/dL (70-110)
[2024-05-16 17:41] LABS: Glucose,Whole Blood 223 mg/dL (70-110)
[2024-05-16] MEDS: ALPRAZolam 0.5 MG TAB PO PRN (17:46)
[2024-05-16 20:13] LABS: Glucose,Whole Blood 203 mg/dL (70-110)
--- NOTE | 2024-05-16 22:12 | PN ---
PROGRESS NOTE SUBJECTIVE: This is a 63-year-old white female, seen by Dr. Hidalgo, who is going to do a heart catheterization tomorrow. OBJECTIVE: CARDIOVASCULAR: S1, S2. HEMATOLOGY: Negative Homans. PSYCH: Fair mood and affect. Appears to be very anxious. NEUROLOGIC: Alert and oriented x3. Trending down Eliquis for catheterization on Friday. Continue current treatment. Prognosis guarded. She had a heart catheterization a month ago, but possibly we do tomorrow. Medications have been blocked per Cardiology. Prognosis guarded. MMODL / IJN: [id number] /
[2024-05-17 06:11] LABS: Glucose,Whole Blood 115 mg/dL (70-110)
[2024-05-17] MEDS ORDERED: ASPIRIN 325 MG TAB PO ONE (07:00)
[2024-05-17] MEDS: ATORVASTATIN 80 MG TAB PO ONE (07:01)
[2024-05-17 08:24] LABS: Basophils # (A) 0.03 X 10*3/uL (0.00-0.10); Basophils % (A) 0.6 %; Eosinophils # (A) 0.07 X 10*3/uL (0.04-0.35); Eosinophils % (A) 1.4 %; HCT 38.4 % (37.2-46.3); HGB 12.6 g/dL (12.0-15.0); Lymphocytes # (A) 2.56 X 10*3/uL (0.90-5.00); Lymphocytes % (A) 50.5 %; MCH 29.6 pg (27.0-32.0); MCHC 32.8 g/dL (32.0-37.0); MCV 90.1 FL (80.0-97.0); Mean Platelet Volume 10.4 FL (9.5-12.2); Monocytes # (A) 0.34 X 10*3/uL (0.20-1.00); Monocytes % (A) 6.7 %; NRBC Per 100 WBC 0 X 10*3/uL (0.00-0.01); Neutrophils # (A) 2.05 X 10*3/uL (1.80-7.70); Neutrophils % (A) 40.4 %; Platelet Count 206 X 10*3/uL (140-440); RBC 4.26 X 10*6/uL (4.10-5.20); RDW 12.9 % (11.5-14.5); WBC 5.07 X 10*3/uL (4.50-10.00)
[2024-05-17] MEDS: HEPARIN SODIUM,PORCINE 10,000 UNIT in SODIUM CHLORIDE 0.9% 1,000 ML IRRIGATION PRN (08:34)
[2024-05-17] MEDS: SODIUM CHLORIDE 0.9% 1,000 ML IV ONE (08:34)
[2024-05-17] MEDS: HEPARIN SODIUM,PORCINE (1 ML) 2,500 UNIT in SODIUM CHLORIDE 0.9% 250 ML IRRIGATION PRN (08:34)
[2024-05-17] MEDS: MIDAZOLAM 2 MG/2 ML VIAL IVP ONE (09:18)
[2024-05-17] MEDS: fentaNYL (PF) 50 MCG/ML 2 ML AMP IVP ONE (09:18)
[2024-05-17] MEDS: LIDOCAINE 1% INJ 10MG/ML (20 ML MDV) SQ ONE (09:26)
[2024-05-17] MEDS: VERAPAMIL SYRINGE (5 MG/10 ML) INTRAARTER ONE (09:30)
[2024-05-17] MEDS: HEPARIN SODIUM 1,000 UN/ML (10ML VL) IVP ONE (09:35)
[2024-05-17] MEDS: IOPAMIDOL-370 100ML BTL INJ ONE (09:46)
[2024-05-17] MEDS ORDERED: RX INFO: IV CONTRAST WAS GIVEN 1 EACH MISC MISCELLANE PRN (10:34)
--- NOTE | 2024-05-17 10:50 | CC ---
CARDIAC CATHETERIZATION REPORT INDICATION: [id number] elevation CA. PROCEDURE NOTE: After obtaining informed consent, left heart catheterization and coronary angiogram were performed via the left radial artery using standard Osmel catheters the patient tolerated the procedure well without any obvious immediate complications. A TR band will be used for hemostasis. Right radial artery access was obtained using Seldinger technique and a 6-Amharic sheath was placed. Catheters and wires were floated into the ascending aorta under fluoroscopic guidance. The patient's right radial artery access was obtained using Seldinger technique, 6-Amharic sheath was placed. Catheters and wires were floated into the ascending aorta under fluoroscopic guidance. The patient received verapamil and heparin per protocol. Total sedation time was 24 minutes. FINDINGS: 1. Hemodynamics: Left ventricular end-diastolic pressure 20 mm. There is no significant gradient across the aortic valve. 2. Left ventriculogram: Left ventriculogram is not performed. 3. ANGIOGRAPHIC DATA: a.Right coronary artery: Right coronary artery is a large dominant vessel and has been stented extensively. The stent extends from proximal to mid to distal RCA. There are aneurysmal and ectatic changes within the distal right coronary artery with a 30% to 40% stenosis prior to the aneurysmal area. This is the artery for which she underwent angioplasty most recently. b.Left main coronary artery: Left main coronary artery is a short vessel and is free of stenosis. Divides into left anterior descending coronary artery and circumflex coronary artery. Circumflex coronary artery gives off 2 large caliber OM branches. The stented area within the circ shows mild disease just past the stent. The second OM branch has an ostial lesion that is 50% to 70% stenosed. There is a small caliber diagonal branch that was previously stented and appears subtotally occluded. LAD shows mild nonobstructive disease, appears calcified. CONCLUSIONS: 1. Three-vessel coronary artery disease as described above. 2. Patent stent within the right coronary artery, subtotal occlusion of the diagonal. The patient's angiogram was reviewed by Dr. Turner, who advised medical therapy at this time. MMODL / IJN: [id number] /
[2024-05-17 11:05] LABS: Glucose,Whole Blood 181 mg/dL (70-110)
[2024-05-17 11:15] LABS: ALT 18 U/L (8-44); AST 17 U/L (13-35); Albumin 3.6 g/dL (3.8-4.9); Albumin/Globulin Ratio 1.64 Ratio (1.60-3.17); Alkaline Phosphatase 89 U/L (41-126); BUN/Creat Ratio 28.17 Ratio (12.00-20.00); Blood Urea Nitrogen 16.9 mg/dL (9.0-27.0); Calcium 8.7 mg/dL (8.7-10.3); Carbon Dioxide 25.1 mmol/L (21.6-31.8); Chloride 106 mmol/L (96-109); Globulin 2.2 g/dL (1.6-3.3); Glucose 123 mg/dL (70-110); Potassium 3.9 mmol/L (3.5-5.5); Sodium 141 mmol/L (135-145); Total Bilirubin 0.3 mg/dL (0.3-1.2); Total Protein 5.8 g/dL (6.2-8.2)
[2024-05-17] MEDS: SODIUM CHLORIDE 0.9% 1,000 ML IV SCH (11:29)
--- NOTE | 2024-05-17 14:43 | P.CONS ---
History of Present Illness - Reason for Consult Consult date: 05/17/24 Abdominal discomfort, nausea Requesting physician: Oneal Voss - Chief Complaint Chest pain - History of Present Illness This a pleasant 63-year-old female who presented to the emergency department on 05/10/2024 complaining of nausea and vomiting as well as chest pain. Apparently patient was not able to take any medication for 3 days due to nausea and vomiting. She was recently hospitalized prior for nausea and vomiting chest pain and elevated troponin NSTEMI. During that hospitalization patient was seen by gastroenterology on 05/03/2024 for nausea and vomiting and at that time had reported that she will have episodes once or twice a year for last 3 to 4 years duration. Possibly secondary to gastroparesis. We recommended outpatient follow-up with gastroenterology at that time. Past medical history includes diabetes mellitus, DVT, hypertension, RI, and PE on Eliquis. This morning she underwent cardiac catheterization with findings of three-vessel coronary artery disease. Patent stent within the right coronary artery and subtotal occlusion of the diagonal. Cardiology advising medical therapy at this time. Review of Systems REVIEW OF SYSTEMS: CARDIOPULMONARY: No chest pain or shortness of breath. Gastrointestinal: Abdominal pain. No nausea or vomiting. No hematemesis, coffee-ground emesis. No rectal bleeding, or melena. GENITOURINARY: No dysuria or hematuria. MUSCULOSKELETAL: Reports normal range of motion., Joint pain. SKIN: No rashes. No jaundice. ENDOCRINE: No chills, fevers. No excessive weight gain or loss. No polydipsia or polyuria. PSYCHIATRIC: Unremarkable. NEUROLOGY: No change in mental status. Denies dizziness, headache. ENT: Vision unremarkable. CONSTITUTIONAL: No recent weight loss. No fever, chills, night sweats. Past Medical History Past Medical History: Diabetes Mellitus, Deep Vein Thrombosis (DVT), Hypertension, Pulmonary Embolus (PE) Additional Past Medical History / Comment(s): bilateral ankle fracture, right upper arm fracture History of Any Multi-Drug Resistant Organisms: None Reported Past Surgical History: Heart Catheterization With Stent, Orthopedic Surgery Additional Past Surgical History / Comment(s): Stent x12, fliter in leg, detached retina, left arm fracture Date of Last Stent Placement:: April 09, 2024 Past Psychological History: No Psychological Hx Reported Smoking Status: Never smoker Past Alcohol Use History: None Reported Past Drug Use History: None Reported - Past Family History Father Family Medical History: Diabetes Mellitus, Myocardial Infarction (RI) Mother Family Medical History: Congestive Heart Failure (CHF), Diabetes Mellitus Sister(s) Family Medical History: Diabetes Mellitus, Myocardial Infarction (RI) Additional Family Medical History / Comment(s): at age 67 Brother(s) Family Medical History: Myocardial Infarction (RI) Additional Family Medical History / Comment(s): at age 59 Family Family Medical History: No Reported History Medications and Allergies Home Medications Medication Instructions Recorded Confirmed Type Apixaban [Eliquis] 5 mg PO BID 12/07/21 05/11/24 History DULoxetine HCL [Cymbalta] 60 mg PO BID 12/07/21 05/11/24 History Ezetimibe [Zetia] 10 mg PO HS 12/07/21 05/11/24 History Insulin Aspart [NovoLOG Flexpen] 30 - 50 units SQ TID-W/MEALS 12/07/21 05/11/24 History Linaclotide [Linzess] 290 mcg PO DAILY 12/07/21 05/11/24 History Potassium Chloride ER [K-Dur 20] 20 meq PO DAILY 12/07/21 05/11/24 History Rosuvastatin [Crestor] 20 mg PO HS 12/07/21 05/11/24 History Buprenorphine-Nalox 8-2 mg Tab 1 tab SUBLINGUAL BID 04/29/24 05/11/24 History [Suboxone 8-2 mg Tab] Levothyroxine Sodium [Synthroid] 100 mcg PO DAILY 04/29/24 05/11/24 History Metoclopramide [Reglan] 10 mg PO DAILY 04/29/24 05/11/24 History Pantoprazole Sodium [Protonix] 20 mg PO DAILY 04/29/24 05/11/24 History Ticagrelor [Brilinta] 90 mg PO DAILY 04/29/24 05/11/24 History amLODIPine [Norvasc] 5 mg PO DAILY 04/29/24 05/11/24 History lisinopriL 40 mg PO DAILY 04/29/24 05/11/24 History Metoprolol Succinate (ER) [Toprol 25 mg PO DAILY 30 Days #30 tab 05/03/24 05/11/24 Rx XL] Zolpidem [Ambien] 5 mg PO HS PRN 3 Days #3 tab 05/03/24 05/11/24 Rx Insulin Detemir [Levemir Flexpen] 40 units SQ BID 05/11/24 05/11/24 History Allergies Allergy/AdvReac Type Severity Reaction Status Date / Time butorphanol [From Stadol] Allergy Unknown Verified 05/11/24 09:25 codeine Allergy Rash/Hives Verified 05/11/24 09:25 meperidine [From Demerol] Allergy Anaphylaxis Verified 05/11/24 09:25 NSAIDS (Non-Steroidal Allergy Anaphylaxis Verified 05/11/24 09:25 Anti-Inflamma carvedilol [From Coreg] AdvReac Migraines Verified 05/11/24 09:25 dapagliflozin [From Farxiga] AdvReac DKA Verified 05/11/24 09:25 Physical Exam Vitals: Vital Signs Temp Pulse Resp BP BP Pulse Ox 05/17/24 07:27 97.8 F 67 16 127/69 99 05/17/24 02:19 98.2 F 65 16 112/63 97 05/16/24 18:57 97.8 F 63 18 143/78 99 05/16/24 14:38 97.8 F 58 L 16 113/70 97 Intake and Output 05/16/24 05/17/24 05/17/24 22:59 06:59 14:59 Intake Total 590 Balance 590 Intake: Oral 590 Other: # Voids 2 2 General appearance: The patient is alert, oriented, appears in no acute distress. HET: Head is normocephalic and atraumatic. Conjunctiva pink. Sclera anicteric. Neck: Supple without lymphadenopathy. Trachea midline. Heart: Regular. Lungs: Equal expansion, normal respiratory effort. Abdomen: Soft, nontender, nondistended. Skin: No rashes. No jaundice. Extremities: Normal skin color and turgor. No pedal edema. Neurological: No focal deficits. Alert and oriented x3. Results CBC & Chem 7: 05/17/24 05:30 05/17/24 05:30 Labs: Abnormal Lab Results - Last 24 Hours (Table) 05/16/24 05/16/24 05/16/24 Range/Units 12:34 17:40 20:12 APTT (22.0-30.0) sec POC Glucose (mg/dL) 129 H 223 H 203 H (70-110) mg/dL 05/17/24 05/17/24 Range/Units 05:30 06:10 APTT 61.1 H (22.0-30.0) sec POC Glucose (mg/dL) 115 H (70-110) mg/dL Assessment and Plan (1) Nausea and vomiting Narrative/Plan: 64-year-old 25-year IDD who presented to the emergency department with nausea and vomiting and chest pain. Patient has chronic nausea and vomiting over last several years. Nausea and vomiting likely secondary to diabetic gastroparesis. No previous endoscopic evaluation but does get improvement of symptoms with use of Reglan. Uses Reglan at home as needed. States other antiemetics do not work as well. Denies any hematemesis or abdominal pain. Underwent cardiac catheterization today with recommendations for medical management. Nausea and vomiting improved. No plans on endoscopic evaluation at this time. Recommend continuing Protonix 40 mg twice daily, Reglan as needed. Patient currently on Brilinta for recent cardiac stent. Will plan for diagnostic EGD tomorrow Current Visit: Yes Status: Acute Code(s): R11.2 - NAUSEA WITH VOMITING, UNSPECIFIED SNOMED Code(s): 09840536 (2) Chest pain Current Visit: Yes Status: Acute Code(s): R07.9 - CHEST PAIN, UNSPECIFIED SNOMED Code(s): 00168005 (3) History of DVT (deep vein thrombosis) Current Visit: No Status: Acute Code(s): Z86.718 - PERSONAL HISTORY OF OTHER VENOUS THROMBOSIS AND EMBOLISM SNOMED Code(s): 205812420 Plan: 1. Continue symptomatic and supportive care 2. Antiemetics as needed. Recommend continuing outpatient Reglan 3. Protonix 40 mg twice daily 4. Recommend strict glycemic control 5. Patient scheduled for upper endoscopy tomorrow, diagnostic 6. Recommend outpatient follow-up with gastroenterology Thank you for this consultation, patient is cleared from gastroenterology for discharge. Dr. Stephanie Colon I agree with the dictator's note, documented as a scribe by Mandy Roman.
[2024-05-17 17:19] LABS: Glucose,Whole Blood 272 mg/dL (70-110)
[2024-05-17 20:34] LABS: Glucose,Whole Blood 290 mg/dL (70-110)
[2024-05-17] MEDS: TICAGRELOR 90 MG TAB PO SCH (20:38)
[2024-05-18 05:59] LABS: Glucose,Whole Blood 73 mg/dL (70-110)
--- NOTE | 2024-05-18 09:00 | CDI ---
Documentation Clarification Form Date: 05/18/2024 08:56:44 AM From: Candy Baumann RN, CCDS Phone: [phone] Admit Date: 05/10/2024 06:34:00 PM Patient Name: Bethany Linares Visit Number: [id number] Discharge Date: ATTENTION: The Clinical Documentation Specialists (CDI) and [facility] Coding Staff appreciate your assistance in clarifying documentation. Please respond to the clarification below the line at the bottom and electronically sign. The CDI & [facility] Coding staff will review the response and follow-up if needed. Please note: Queries are made part of the Legal Health Record. If you have any questions, please contact the author of this message via ITS. Doctor/Provider: Brooks Saldaña Your patient has problems with burning urination and dysuria documented in the H/P and subsequent progress notes. Based on this information and the findings below, is there an additional diagnosis that is clinically appropriate for this patient? Patient history/risk factors: Diabetes Mellitus, Deep Vein Thrombosis, Hypertension, Myocardial Infarction, PE Clinical Indicators: 63-year-old female to the ER for evaluation of nausea vomiting and chest pain. She is not taking Eliquis or blood pressure medication. She had elevated troponin, in addition has problems with burning urination and dysuria. 05/10 VS 196/112 110 20 98.5 100% RA, 05/11 VS: 130/62 83 17 98.4 98% RA 05/10 Labs: WBC 7.6 Trop <0.012, 0014, Lab 05/11 0.040 05/11 Labs: UA: Leukocyte Esterase Moderate WBC 41, Bacteria Rare Treatment: Rocephin 1 GM IVPB Q 24 HRS .9NS IV @ 75 ML/HR Is there an additional diagnosis that is clinically appropriate for this patient? [ ] Urinary tract infection Present on admission [ ] No additional diagnosis/Not clinically significant [ ] Unable to determine [ ] Other, please specify (Template Last Reviewed: August 2022) MTDD
--- NOTE | 2024-05-18 10:54 | P.PN ---
Subjective HISTORY OF PRESENT ILLNESS: This is a 63-year-old female patient of manager nursing Dr. Thad Shahid with past medical history of coronary artery disease with 12 stents (per patient), congestive heart failure, hypertension, hyperlipidemia, diabetes, DVT/PE, and suspected gastroparesis. We have been asked to evaluate the patient for chest pain. Patient had a recent hospitalization on 1016. Patient states that she is here for the exact same symptoms. She states that she did not realize she was going to run out of Reglan which happened on Friday. She has not been able to to obtain more Reglan over the weekend. She started having nausea and vomiting which she has approximately 3-4 episodes per year which requires hospitalization. She states she also had some chest pressure but does not have any now. Patient states that she feels much better from yesterday. Discussed elevated troponin with recommendations for cardiac catheterization but patient declined and would rather follow-up with her own manager nursing for any procedures. Patient presented with a blood pressure 196/112 status post 1 dose of labetalol IV. Blood pressure is now 130/62, heart rate 83, pulse ox 98% on room air. Patient has not been taking her home medications since last . EKG: Sinus rhythm with no acute ST changes chronic nonspecific ST-T wave changes, 105 bpm Chest x-ray: No acute findings. COPD Laboratory studies: Troponins 0.012, 0.014, 0.04. proBNP 914. Potassium 3.5, creatinine 0.44. D-dimer 0.3. Home cardiac medications: Echocardiogram performed on 04/30/2024 revealed EF 55%, increased left ventricular wall thickness, mild MR, mild AR, mild TR, RVSP 19. 05/13 Yesterday, patient was having headache thought to be due to Imdur which was was discontinued and patient started on Ranexa 500 mg twice daily. Patient denies chest pain. She is still not wanting to undergo cardiac catheterization. She does want her son to talk to us and he will be in later today. Blood pressure 115/69, heart rate 72, pulse ox 94% on room air. 05/14 Patient is seen and examined. Blood pressure 107/69, heart rate 71, pulse ox 90% on room air. Patient send apparently was here but we were not notified of his presence. Chris Soriano's phone number was left at the bedside for patient to provide to her son. She is now willing to go for cardiac catheterization which will be scheduled on Friday. Records from patient's manager nursing office dated 04/09/2024 at which time patient presented to reviewed [facility] with NSTEMI. She underwent successful OCT guided complex percutaneous coronary intervention to the severe mRCA recurrent in-stent restenosis. 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 Patient underwent successful PCI to mRCA severe ISR with score flex scoring balloon and 3 rounds of laser atherectomy and placement of a Megatron KATHY. May 15, 2024 The patient was seen and evaluated this morning. She is asymptomatic at this point. Her pressure is better as well. Currently she is on Eliquis which I am going to stop and start the patient on heparin IV just in case she need to undergo an emergent heart catheterization. She is scheduled to undergo a heart catheterization on Friday. The examination is remarkable for regular rhythm with a soft systolic murmur and clear breathing sounds bilaterally and no edema was noted May 16, 2024 The patient was seen and evaluated this morning which she is asymptomatic and she is hemodynamically stable. The plan is to pursue with a heart catheterization tomorrow. She is somewhat anxious but she is on Xanax. The ph ysical examination is remarkable for stable vital signs with regular rate and rhythm and clear breathing sounds bilaterally and no edema was noted 05/18/2024 Patient examined this morning at the bedside. She underwent cardiac catheterization yesterday revealing three-vessel coronary artery disease with patent stent in the RCA, subtotal occlusion of the diagonal. Medical management was recommended. Patient denies any chest pain or pressure at the time of examination. She denies any shortness of breath. She was evaluated by GI services and is scheduled to undergo EGD today. Her Eliquis remains on hold. PHYSICAL EXAM: VITAL SIGNS: Reviewed. GENERAL: Well-developed in no acute distress. NECK: Supple. No JVD or thyromegaly LUNGS: Respirations even and unlabored. Lungs essentially clear to auscultation bilaterally. HEART: Regular rate and rhythm. S1 and S2 heard. EXTREMITIES: Normal range of motion. No clubbing or cyanosis. Peripheral pulses intact. No lower extremity edema ASSESSMENT: NSTEMI, status post cardiac catheterization as above Uncontrolled hypertension Diabetes with suspected gastroparesis Coronary artery disease with previous stenting x 12 per patient Mild ischemic cardiomyopathy Diabetes mellitus type 2 Hypertension Hyperlipidemia History of DVT and PE on Eliquis PLAN: Continue current cardiac medications Patient scheduled for endoscopy today with Dr. Jesi Colon Resume Eliquis tonight Patient is stable for discharge home today from a cardiac standpoint Patient is requesting to follow-up postdischarge with Dr. Colon We will sign off. Please reconsult if needed. Nurse practitioner note has been reviewed by physician. Signing provider agrees with the documented findings, assessment, and plan of care documented by DIRECTOR HOME HEALTH as a scribe. Objective - Vital Signs Vital signs: Vital Signs Temp 98.2 F 05/18/24 06:51 Pulse 63 05/18/24 09:10 Resp 16 05/18/24 06:51 BP 103/62 05/18/24 09:10 Pulse Ox 95 05/18/24 06:51 FiO2 Intake & Output 05/17/24 05/18/24 05/18/24 18:59 06:59 18:59 Intake Total 100 Balance 100 Intake: IV 100 Other: Voiding Method Toilet Toilet Toilet # Voids 1 3 - Labs CBC & Chem 7: 05/17/24 05:30 05/17/24 05:30 Labs: Abnormal Lab Results - Last 24 Hours (Table) 05/17/24 05/17/24 05/17/24 Range/Units 05:30 11:04 17:17 BUN/Creatinine Ratio 28.17 H (12.00-20.00) Ratio Glucose 123 H (70-110) mg/dL POC Glucose (mg/dL) 181 H 272 H (70-110) mg/dL Total Protein 5.8 L (6.2-8.2) g/dL Albumin 3.6 L (3.8-4.9) g/dL 05/17/24 Range/Units 20:33 BUN/Creatinine Ratio (12.00-20.00) Ratio Glucose (70-110) mg/dL POC Glucose (mg/dL) 290 H (70-110) mg/dL Total Protein (6.2-8.2) g/dL Albumin (3.8-4.9) g/dL
[2024-05-18 11:58] LABS: Glucose,Whole Blood 94 mg/dL (70-110)
[2024-05-18] MEDS ORDERED: PROPOFOL 10 MG/ML 20 ML VIAL IV ONE (13:07)
[2024-05-18] MEDS ORDERED: LIDOCAINE 1% INJ 10MG/ML (20 ML MDV) ONE (13:07)
[2024-05-18] MEDS: IV FLUID CONTINUATION 900 ML IV ONE ×2 (13:15→13:34)
--- NOTE | 2024-05-18 13:29 | P.PCN ---
Date of Procedure: 05/18/24 Procedure(s) Performed: BRIEF HISTORY: Patient is a 63-year-old, pleasant, white female scheduled for upper endoscopy as a part evaluation of intermittent episodes of nausea vomiting for the last 6 months duration.. PROCEDURE PERFORMED: Esophagogastroduodenoscopy. PREOPERATIVE DIAGNOSIS: Chronic intermittent nausea vomiting of 6 months duration. IV sedation per anesthesia. PROCEDURE: After informed consent was obtained, the patient was brought into the endoscopy unit. IV sedation was administered by Anesthesia under continuous monitoring. Initially the Olympus GIF-140 video endoscope was inserted into the mouth. Esophagus intubated without any difficulty. It was gradually advanced into the stomach and duodenum and carefully examined. The bulb and the second part of the duodenum appeared normal. The scope at this time was withdrawn to the stomach, adequately insufflated with air, and upon careful examination, mucosa of the antrum mild gastritis. There was moderate amount of solid food retained in the stomach suggestive of diabetic gastroparesis. Mucosa of the, body, cardia and the fundus appeared normal. The scope was then withdrawn into the esophagus. The GE junction was located at 39 cm from the incisors. The esophagus appeared normal. There were no erosions or ulcerations seen and the patient tolerated the procedure well. IMPRESSION: 1. Mild antral gastritis. 2. Retained food in the stomach suggestive of diabetic gastroparesis. RECOMMENDATIONS: The findings of this examination were discussed with the patient. Recommend small frequent meals. Continue Protonix 40 mg daily and antiemetics as needed. Aggressive control of blood sugars..
[2024-05-18 17:10] LABS: Glucose,Whole Blood 222 mg/dL (70-110)
[2024-05-18] MEDS: METOCLOPRAMIDE 10 MG TAB PO SCH (17:41)
[2024-05-18] MEDS: LOPERAMIDE 2 MG CAP PO STA ×2 (17:41→18:02)
[2024-05-18 19:58] LABS: Glucose,Whole Blood 307 mg/dL (70-110)
[2024-05-18] MEDS: APIXABAN 5 MG TAB PO SCH (20:27)
--- NOTE | 2024-05-19 01:27 | PN ---
PROGRESS NOTE SUBJECTIVE: A 63-year-old white female, chest pain, nausea, vomiting, status post heart catheterization, status post EGD, which showed gastroparesis. No significant findings. Otherwise, she will be sent home tomorrow on oral Reglan 10 a.c. t.i.d. Cardiology discharge plans for assessment of heart catheterization were done. We added Ranexa for angina. Ordered breathing treatments at home. Prognosis guarded. OBJECTIVE: CARDIOVASCULAR: S1, S2. LUNGS: Transmitted upper sounds. HEMATOLOGY: Negative Homans. PSYCH: Fair mood and affect. PLAN: Continue current treatment. Discharge home tomorrow. Follow up in a week as an outpatient. Home medications have been reordered and sent to the pharmacy. MMODL / IJN: [id number] /
[2024-05-19 03:16] VITALS: RESP 16
[2024-05-19 06:16] LABS: Glucose,Whole Blood 145 mg/dL (70-110)
[2024-05-19 07:51] VITALS: BP 103/64; PULSE 79; TEMP 98
--- NOTE | 2024-05-20 07:50 | PN ---
PROGRESS NOTE Urinary tract infection present on admission. MMODL / IJN: [id number] /
== END 2024-05-19 11:07 | disposition home or self-care (01) | DRG 281 ==
LOC: EC 16:12 → 6NMEDSUR 18:34 → OBSVTOIN 18:34 → 6NMEDSUR 22:08
PROVIDERS: ADMIT Family Medicine; ATTEND Family Medicine
PROC: B2111ZZ Fluoroscopy of Multiple Coronary Arteries using Low Osmolar Contrast (ICD-10-PCS; 2024-05-17)
PROC: 4A023N7 Measurement of Cardiac Sampling and Pressure, Left Heart, Percutaneous Approach (ICD-10-PCS; principal; 2024-05-17 09:00)
PROC: 0DJ08ZZ Inspection of Upper Intestinal Tract, Via Natural or Artificial Opening Endoscopic (ICD-10-PCS; 2024-05-18)
DX: I25.10 Atherosclerotic heart disease of native coronary artery without angina pectoris (principal); I16.1 Hypertensive emergency; I21.4 Non-ST elevation (NSTEMI) myocardial infarction; Q24.5 Malformation of coronary vessels; N39.0 Urinary tract infection, site not specified; I25.5 Ischemic cardiomyopathy; I11.0 Hypertensive heart disease with heart failure; E11.65 Type 2 diabetes mellitus with hyperglycemia; I50.9 Heart failure, unspecified; I95.9 Hypotension, unspecified; E78.5 Hyperlipidemia, unspecified; E03.9 Hypothyroidism, unspecified; E11.43 Type 2 diabetes mellitus with diabetic autonomic (poly)neuropathy; I48.0 Paroxysmal atrial fibrillation; K31.84 Gastroparesis; F41.9 Anxiety disorder, unspecified; J44.9 Chronic obstructive pulmonary disease, unspecified; F32.A Depression, unspecified; K21.9 Gastro-esophageal reflux disease without esophagitis; K29.60 Other gastritis without bleeding; T46.5X6A Underdosing of other antihypertensive drugs, initial encounter; I25.2 Old myocardial infarction; Z79.01 Long term (current) use of anticoagulants; Z79.02 Long term (current) use of antithrombotics/antiplatelets; Z79.4 Long term (current) use of insulin; Z79.890 Hormone replacement therapy; Z79.899 Other long term (current) drug therapy; Z79.891 Long term (current) use of opiate analgesic; Z86.711 Personal history of pulmonary embolism; Z86.718 Personal history of other venous thrombosis and embolism; Z91.148 Patient's other noncompliance with medication regimen for other reason; Z95.5 Presence of coronary angioplasty implant and graft; Z88.6 Allergy status to analgesic agent; Z88.5 Allergy status to narcotic agent; Z88.8 Allergy status to other drugs, medicaments and biological substances; Z83.3 Family history of diabetes mellitus; Z82.49 Family history of ischemic heart disease and other diseases of the circulatory system
CPT/HCPCS: 36415; 43235; 71045; 80048; 80053; 81001; 83036; 83605; 83690; 83735; 83880; 84100; 84484; 85025; 85027; 85379; 85610; 85730; 93005; 93458; 94760; 96361; 96374; 96375; 99285